=== PATIENT | male | born 1950 | race Caucasian/White ===

== ENCOUNTER → 2016-05-28 | Outpatient (CLI) | payer OTHER ==
[~2016-05-28] MED LIST: ACET-1256 PO; ASPEC81 PO; ASPI81TA28 PO; ATEN50TA8 PO; FURO-85 PO; NTRGSL/4 UT; NTRSLP4 SL; OMEP40CA41 PO; OXYC-609 PO; PANT40TA PO; POTA20TA13 PO; RANI300T2 PO; SIMV40TA2 PO; SUCR1TAB PO; SUCR1TAB29 PO; TAMS0.4C38 PO
[2016-05-28 12:53] LABS: ALT/SGPT 59 U/L (12-78); BLOOD UREA NITROGEN 30 mg/dl (7-18); BUN/CREATININE RATIO 22.7 (10-20); CALCIUM 8.9 mg/dl (8.5-10.1); CARBON DIOXIDE 29 mmol/L (21-32); CHLORIDE 102 mmol/L (98-107); GLUCOSE 211 mg/dl (70-99); POTASSIUM 4.6 mmol/L (3.5-5.1); SODIUM 138 mmol/L (136-145)
[2016-05-28 12:56] LABS: ALKALINE PHOSPHATASE 113 U/L (45-117); AST/SGOT 33 U/L (15-37)
== END | disposition home or self-care (01) ==
LOC: C.LABPVFM 08:36
PROVIDERS: ATTEND Nurse Practitioner
DX: I10 Essential (primary) hypertension (principal); R73.01 Impaired fasting glucose; R74.8 Abnormal levels of other serum enzymes

== ENCOUNTER → 2016-09-11 | Outpatient (CLI) | payer OTHER ==
[2016-09-11 12:31] LABS: CALCIUM 9.5 mg/dl (8.5-10.1)
[2016-09-11 12:36] LABS: BLOOD UREA NITROGEN 24 mg/dl (7-18); BUN/CREATININE RATIO 22.1 (10-20); CARBON DIOXIDE 28 mmol/L (21-32); CHLORIDE 102 mmol/L (98-107); CHOLESTEROL 192 mg/dl (0-200); GLUCOSE 121 mg/dl (70-99); POTASSIUM 4.6 mmol/L (3.5-5.1); SODIUM 137 mmol/L (136-145); TRIGLYCERIDES 122 mg/dl (0-150); VERY LOW DENSITY LIPOPROT CALC 24 mg/dl
[2016-09-11 12:40] LABS: CHOLESTEROL/HDL RATIO 4.7; HDL CHOLESTEROL 41 mg/dl; LDL CHOLESTEROL CALCULATED 127 mg/dl
[2016-09-11 12:59] LABS: ESTIMATED AVERAGE GLUCOSE 140 mg/dl; HA1C FLAG Normal (Normal)
== END | disposition home or self-care (01) ==
LOC: C.LABPVFM 09-10 08:50
PROVIDERS: ATTEND Nurse Practitioner
DX: I10 Essential (primary) hypertension (principal); E11.9 Type 2 diabetes mellitus without complications

== ENCOUNTER 2017-01-21 10:00 | Inpatient (IN) | payer OTHER ==
[~2017-01-21] VITALS: Ht 172.7 cm; Wt 105.8 kg
[~2017-01-21 10:00] MED LIST changes: -ACET-1256 PO; -ASPEC81 PO; -ASPI81TA28 PO; -ATEN50TA8 PO; -FURO-85 PO; -NTRGSL/4 UT; -NTRSLP4 SL; -OMEP40CA41 PO; -OXYC-609 PO; -POTA20TA13 PO; -SIMV40TA2 PO; -SUCR1TAB PO; -SUCR1TAB29 PO; -TAMS0.4C38 PO
[2017-01-21] MEDS ORDERED: ASPIRIN 81 MG CHEW PO STA (10:33)
[2017-01-21 10:45] LABS: HEMATOCRIT 41.4 % (42-52); MEAN CELL VOLUME 86.4 fL (80-100); MEAN CORPUSCULAR HEMOGLOBIN 30.1 pg (25-34); MEAN CORPUSCULAR HGB CONC 34.8 g/dl (32-36); MEAN PLATELET VOLUME 11.6 fL (7.4-10.4); PLATELET COUNT 242 K/uL (130-400); RED BLOOD COUNT 4.79 M/uL (4.7-6.1); WHITE BLOOD COUNT 5.98 K/uL (4.8-10.8)
[2017-01-21 10:49] LABS: PARTIAL THROMBOPLASTIN RATIO 1.2; PROTHROMBIN TIME (PATIENT) 10.6 SECONDS (9.0-12.0)
--- NOTE | 2017-01-21 10:55 | EMERGENCY ROOM VISIT NOTE ---
History Report prepared by Fran: Alek Rojas Under the Supervision of: Dr. Zeyad Jorge M.D. First contact with patient: 10:29 Chief Complaint: CHEST PAIN Stated Complaint: CHEST PAIN Nursing Triage Summary: patient states he has had intermittent chest pains for the past couple months. it happens more when I am up walking around. I dont have any pain at this time. when the pain comes it goes into my jaw and makes my teeth hurt. I also feel short of breath when I get the pain History of Present Illness The patient is a 66 year old male who presents to the Emergency Room with complaints of worsening intermittent chest pain for the past month. The patient additionally states that he is short of breath, and both symptoms are worsened with exertion, and it is improved with rest. The patient additionally states that his throat and teeth hurt as well. The patient states that he went into his doctor, and they told him to come into the ED for evaluation. The patient states that he has a history of acid reflux, though he denies any history of a heart attack, cancer, or blood clots. He states that he has high blood pressure. The patient denies any COPD, and he states that he does of smoke, though he did when he was much younger. He additionally denies any family history of heart attacks. He states that he has never had a stress test done. Source of History: patient Onset: a month ago Position: chest Timing: intermittent, worsening Modifying Factors (Worsening): exertion Modifying Factors (Relieving): rest Associated Symptoms: + SOB Note: Associated symptoms: throat pain and teeth pain. Review of Systems See HPI for pertinent positives and negatives. A total of ten systems were reviewed and were otherwise negative. Past Medical & Surgical Medical Problems: (1) Acute CHF (2) Hyperplasia Of Prostate, Unspec, 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 & Oth Luts (3) Hypertension Nos (4) Inf Arthrit Nos-Ankle (5) Personal History Of Urinary Calculi (6) Unstable angina Surgical Problems: (1) Cataract Nos Family History Depression Diabetes mellitus Hypertension Social History Smoking Status: Never Smoker Drug Use: none Marital Status: Housing Status: lives with family Occupation Status: retired Current/Historical Medications Scheduled Aspirin (Aspirin EC Low Dose), 81 MG PO QAM Atenolol (Tenormin), 50 MG PO QAM Omeprazole (Prilosec), 1 CAP PO BID Sucralfate (Carafate), 1 TAB PO ACHS Scheduled PRN Nitroglycerin (Nitrostat), 0.4 MG SL [id number] PRN for Chest Pain Allergies Coded Allergies: Morphine (Verified Adverse Reaction, Unknown, GI upset, 01/21/17) Physical Exam Vital Signs Date Time Temp Pulse Resp B/P (MAP) Pulse Ox O2 Delivery O2 Flow Rate FiO2 01/21/17 12:47 52 16 96 Room Air 01/21/17 12:30 97 Room Air 01/21/17 11:37 48 16 168/89 97 01/21/17 10:50 97 Room Air 01/21/17 10:50 97 Room Air 01/21/17 10:27 47 01/21/17 10:06 36.3 53 18 179/102 96 Physical Exam GENERAL: Awake, alert, well-appearing, in no distress HENT: Dry mucous membranes. Normocephalic, atraumatic. Oropharynx unremarkable. EYES: Normal conjunctiva. Sclera non-icteric. NECK: Supple. No nuchal rigidity. FROM. No JVD. RESPIRATORY: Clear to auscultation. CARDIAC: SB, normal rhythm. Extremities warm and well perfused. Pulses equal. ABDOMEN: Obese abdomen. Soft, non-distended. No tenderness to palpation. No rebound or guarding. No masses. RECTAL: Deferred. MUSCULOSKELETAL: Chest examination reveals no tenderness. The back is symmetrical on inspection without obvious abnormality. There is no CVA tenderness to palpation. No joint edema. LOWER EXTREMITIES: Calves are equal size bilaterally and non-tender. No edema. No discoloration. NEURO: Normal sensorium. No sensory or motor deficits noted. SKIN: No rash or jaundice noted. Medical Decision & Procedures ER Provider Diagnostic Interpretation: Radiology results as stated below per my review and radiologist interpretation: CHEST ONE VIEW PORTABLE HISTORY: Atypical CHEST PAIN COMPARISON: Chest 04/08/2016. FINDINGS: There are low lung volumes. The heart is mildly enlarged. Bibasilar linear densities. Mild central pulmonary vascular congestion without overt edema. No pneumothorax. No definite pleural effusions. Hiatal hernia. Bilateral hilar and mediastinal prominence may represent engorgement of the pulmonary vessels and crowding from the low lung volumes. IMPRESSION: 1. Low lung volumes with bibasilar densities. This may represent atelectasis. 2. Primarily with mild central pulmonary vascular congestion. 3. Hiatal hernia. 4. Bilateral hilar and mediastinal prominence may represent engorgement of the pulmonary vessels and crowding from the low lung volumes. However, follow-up PA and lateral views of the chest is recommended once the patient is stabilized to confirm resolution of this finding. Electronically signed by: Oswald Engel M.D. 01/21/2017 11:03 AM Dictated Date/Time: 01/21/2017 11:00 AM Laboratory Results Test 01/21/17 10:20 Estimated Average Glucose 128 mg/dl Hemoglobin A1c 6.1 % (4.5-5.6) Total Bilirubin 0.7 mg/dl (0.2-1) Aspartate Amino Transf (AST/SGOT) 24 U/L (15-37) Alanine Aminotransferase (ALT/SGPT) 54 U/L (12-78) Alkaline Phosphatase 94 U/L (45-117) Pro-B-Type Natriuretic Peptide 39 pg/ml (0-900) Total Protein 7.8 gm/dl (6.4-8.2) Albumin 4.0 gm/dl (3.4-5.0) Globulin 3.8 gm/dl (2.5-4.0) Albumin/Globulin Ratio 1.1 (0.9-2) Lipase 169 U/L (73-393) Laboratory results reviewed by me Medications Administered Medications (Trade) Dose Ordered Sig/Joseph Route Start Time Stop Time Status Last Admin Dose Admin Aspirin (Aspirin Chew) 324 mg NOW STAT PO 01/21/17 10:33 01/21/17 10:35 DC 01/21/17 10:49 324 MG Nitroglycerin (Nitroglycerin 2% Oint) 1 inch STK-MED ONCE .ROUTE 01/21/17 12:41 01/21/17 12:42 DC 01/21/17 12:49 1 INCH Acetaminophen (Tylenol Tab) 650 mg Q4H PRN PO 01/21/17 13:00 02/20/17 12:59 01/22/17 11:21 650 MG Furosemide (Lasix Inj) 40 mg NOW STAT IV 01/21/17 13:02 01/21/17 13:22 DC 01/21/17 13:35 40 MG ECG Indication: chest pain Rate (beats per minute): 48 Rhythm: sinus bradycardia Findings: no acute ischemic change, other (Normal axis) Comparison ECG Date: 04/08/16 Change: no significant change ED Course 1029: The patient was evaluated in room A2. A complete history and physical exam was performed. 1033: Aspirin 324mg PO 1200: I reevaluated the patient, and he was resting. 1224: Discussed the patient's case with Dr. Beltran. The patient will be evaluated for further treatment and disposition. Medical Decision I reviewed the patient's past medical history, medications, and the nursing notes as described above. The patient's presentation and history were concerning for ACS, CHF, pneumonia, bronchitis, reflux gastritis, dissection, and aneurysm. Patient is a 66-year-old gentleman with a past medical history of hypertension presents emergency Department with intermittent chest pain with exertion as well as at rest per history of present illness. Exam the patient is no acute distress, afebrile with stable vital signs. Denies chest pain on arrival. EKG unremarkable. Troponin negative. Chest x-ray unremarkable. Bedside echo negative for pericardial effusion, slightly enlarged LV and RV, with likely slightly decreased function. Considering this patient has a heart sort of 5, moderate risk, will need further r/o. Case discussed with medicine team will admit for further management and likely provocative testing. Medication Reconcilliation Current Medication List: was personally reviewed by me Blood Pressure Screening Patient's blood pressure: Elevated blood pressure Managed by the hospitalist Consults Time Called: 1202 Consulting Physician: Dr. Beltran Returned Call: 1224 Discussed the patient's case with Dr. Beltran. The patient will be evaluated for further treatment and disposition. Impression Primary Impression: Substernal chest pain Scribe Attestation The scribe's documentation has been prepared under my direction and personally reviewed by me in its entirety. I confirm that the note above accurately reflects all work, treatment, procedures, and medical decision making performed by me. Departure Information Dispostion Being Evaluated By Hospitalist Prescriptions Sucralfate (CARAFATE) 1 Gm Tab 1 TAB PO ACHS for 10 Days, #40 TAB 0 Refills Prov: Fernie Stover MD 01/23/17 Aspirin (Aspirin EC Low Dose) 81 Mg Ectab 81 MG PO QAM, #90 TABS 3 Refills Prov: Fernie Stover MD 01/23/17 Nitroglycerin (Nitrostat) 0.4 Mg/1 Tab Subl 0.4 MG SL [id number] Y for Chest Pain, #1 BTL 0 Refills max 3 tabs in 15 minutes Prov: Fernie Stover MD 01/23/17 Omeprazole (PRILOSEC) 40 Mg Cap 1 CAP PO BID for 30 Days, #60 CAP 1 Refill Prov: Fernie Stover MD 01/23/17 Referrals Lori Ponce C.R.N.P (PCP) Patient Instructions [facility]
[2017-01-21 11:02] LABS: ALT/SGPT 54 U/L (12-78); AST/SGOT 24 U/L (15-37); BLOOD UREA NITROGEN 22 mg/dl (7-18); BUN/CREATININE RATIO 19.8 (10-20); CALCIUM 9.2 mg/dl (8.5-10.1); CARBON DIOXIDE 26 mmol/L (21-32); CHLORIDE 104 mmol/L (98-107); GLUCOSE 163 mg/dl (70-99); SODIUM 135 mmol/L (136-145)
--- NOTE | 2017-01-21 11:05 | DIAGNOSTIC IMAGING REPORT ---
CHEST ONE VIEW PORTABLE HISTORY: Atypical CHEST PAIN COMPARISON: Chest 04/08/2016. FINDINGS: There are low lung volumes. The heart is mildly enlarged. Bibasilar linear densities. Mild central pulmonary vascular congestion without overt edema. No pneumothorax. No definite pleural effusions. Hiatal hernia. Bilateral hilar and mediastinal prominence may represent engorgement of the pulmonary vessels and crowding from the low lung volumes. IMPRESSION: 1. Low lung volumes with bibasilar densities. This may represent atelectasis. 2. Primarily with mild central pulmonary vascular congestion. 3. Hiatal hernia. 4. Bilateral hilar and mediastinal prominence may represent engorgement of the pulmonary vessels and crowding from the low lung volumes. However, follow-up PA and lateral views of the chest is recommended once the patient is stabilized to confirm resolution of this finding. Electronically signed by: Oswald Engel M.D. 01/21/2017 11:03 AM Dictated Date/Time: 01/21/2017 11:00 AM
[2017-01-21 11:07] LABS: ALB/GLOB RATIO 1.1 (0.9-2); ALKALINE PHOSPHATASE 94 U/L (45-117); CKMB/CK RATIO 0.9 (0-3.0)
[2017-01-21 12:30] VITALS: O2SAT 97; Ht 172.7 cm; Wt 105.8 kg
[2017-01-21] MEDS ORDERED: NITROGLYCERIN OINT 2% 1GM PACKET ONE ×2 (12:41→12:48)
[2017-01-21] MEDS ORDERED: ACETAMINOPHEN 325 MG TAB PO PRN (13:00)
[2017-01-21] MEDS ORDERED: NITROGLYCERIN 0.4 MG SL PER TAB CHARGE SL PRN (13:00)
[2017-01-21] MEDS ORDERED: ZOLPIDEM TARTRATE 5 MG TAB PO PRN (13:00)
[2017-01-21] MEDS ORDERED: ONDANSETRON INJ 2 MG/ML 2 ML VIAL IV PRN (13:00)
[2017-01-21] MEDS ORDERED: FUROSEMIDE 40 MG/4 ML VIAL IV STA (13:02)
--- NOTE | 2017-01-21 13:33 | History and Physical ---
History & Physical Date & Time of Service: Jan 21, 2017 at 13:24 Chief Complaint: Chest Pain Primary Care Physician: Lori Ponce C.R.N.P History of Present Illness Source: patient, hospital records The patient is a 66-year-old male who presents to the emergency department with worsening intermittent chest tightness with discomfort into his neck and jaw with teeth pain worsening over the past month. Last week when he was at the [facility], he became so short of breath that he sat down and almost called EMS to bring him to the emergency department. He presents to the emergency department today because of worsening symptoms over the past few days. He is feeling okay while at rest, but developed symptoms very quickly with any type of exertion. He denies any recent increase in salt intake, reporting that he does not add salt to foods, but does not look at the amount of salt that is in foods naturally. He reports an 8 pound weight loss over the past month, because he was advised to lose weight due to his hiatal hernia, but reports that this discomfort is not reflux related and that his reflux is under control. 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: Chronic (2) Hypertension Nos Status: Chronic (3) Inf Arthrit Nos-Ankle Status: Resolved (4) Personal History Of Urinary Calculi Status: Resolved Surgical Problems: (1) Cataract Nos Status: Resolved Family History Depression Diabetes mellitus Hypertension Social History Smoking Status: Former Smoker Smokeless Tobacco Use: No Alcohol Use: none Drug Use: none Marital Status: Housing status: lives with family Occupational Status: retired Immunizations History of Influenza Vaccine: Unknown History of Tetanus Vaccine?: Unknown History of Pneumococcal: Unknown History of Hepatitis B Vaccine: Unknown Multi-Drug Resistant Organisms History of MDRO: No Allergies Coded Allergies: Morphine (Verified Adverse Reaction, Unknown, GI upset, 01/21/17) Home Medications Scheduled Atenolol (Tenormin), 50 MG PO QAM Pantoprazole (Protonix), 40 MG PO QAM Ranitidine Hcl (Zantac), 300 MG PO HS Review of Systems The patient denies palpitations, cough, lower extremity swelling, vision change , hearing change, fevers, chills, sweats, fatigue, nausea, vomiting, diarrhea or constipation, abdominal pain, pelvic pain, blood in urine or stool, dysuria, urinary frequency or urgency, lightheadedness, dizziness, headache, memory loss , rash, abnormal bruising or bleeding, imbalance, focal or generalized weakness , numbness or tingling in arms or legs, generalized arthralgias or myalgias, back pain, night sweats, or allergy symptoms. The review of systems is otherwise negative other than for that already noted above, and at least 10 systems have been reviewed. Physical Exam Vital Signs Date Time Temp Pulse Resp B/P (MAP) Pulse Ox O2 Delivery O2 Flow Rate FiO2 01/21/17 13:20 47 01/21/17 12:47 52 16 96 Room Air 01/21/17 12:30 97 Room Air 01/21/17 11:37 48 16 168/89 97 01/21/17 10:50 97 Room Air 01/21/17 10:50 97 Room Air 01/21/17 10:27 47 01/21/17 10:06 36.3 53 18 179/102 96 The patient is awake, well-developed and adequately nourished, alert and oriented 3, normocephalic and atraumatic, lying in bed and in no acute distress. HEENT--PERRL, EOMI, mucous membranes and oropharynx normal. Neck--supple, no JVD or bruits, thyroid normal, trachea midline, no adenopathy. Heart--normal S1 and S2, no extra beats, no murmurs, rubs or gallops. Lungs--crackles at the bases bilaterally, no respiratory distress, no accessory muscle use. Abdomen--normal bowel sounds and soft, nontender and nondistended, no hernias or masses, no organomegaly and obese. Extremities--no cyanosis, clubbing or edema. There are good distal pulses b/l. Dermatologic--normal skin turgor, normal color, warm and dry, no abnormal lymph nodes, no rash. Neurologic--cranial nerves II through XII grossly intact, motor and sensory examination normal. Rheumatologic--normal range of motion, nontender, muscles and joints. Psychiatric--normal affect. Diagnostics Laboratory Results Results Past 24 Hours Test 01/21/17 10:20 Range/Units White Blood Count 5.98 4.8-10.8 K/uL Red Blood Count 4.79 4.7-6.1 M/uL Hemoglobin 14.4 14.0-18.0 g/dL Hematocrit 41.4 42-52 % Mean Corpuscular Volume 86.4 80-100 fL Mean Corpuscular Hemoglobin 30.1 25-34 pg Mean Corpuscular Hemoglobin Concent 34.8 32-36 g/dl RDW Standard Deviation 44.7 36.4-46.3 fL RDW Coefficient of Variation 14.2 11.5-14.5 % Platelet Count 242 130-400 K/uL Mean Platelet Volume 11.6 7.4-10.4 fL Prothrombin Time 10.6 9.0-12.0 SECONDS Prothromb Time International Ratio 1.0 0.9-1.1 Activated Partial Thromboplast Time 29.9 21.0-31.0 SECONDS Partial Thromboplastin Ratio 1.2 Sodium Level 135 136-145 mmol/L Potassium Level 4.0 3.5-5.1 mmol/L Chloride Level 104 98-107 mmol/L Carbon Dioxide Level 26 21-32 mmol/L Anion Gap 5.0 3-11 mmol/L Blood Urea Nitrogen 22 7-18 mg/dl Creatinine 1.10 0.60-1.40 mg/dl Est Creatinine Clear Calc Drug Dose 77.2 ml/min Estimated GFR () 80.1 Estimated GFR (Non- 69.1 BUN/Creatinine Ratio 19.8 10-20 Random Glucose 163 70-99 mg/dl Calcium Level 9.2 8.5-10.1 mg/dl Total Bilirubin 0.7 0.2-1 mg/dl Aspartate Amino Transf (AST/SGOT) 24 15-37 U/L Alanine Aminotransferase (ALT/SGPT) 54 12-78 U/L Alkaline Phosphatase 94 45-117 U/L Total Creatine Kinase 76 39-308 U/L Creatine Kinase MB 0.7 0.5-3.6 ng/ml Creatine Kinase MB Ratio 0.9 0-3.0 Troponin I < 0.015 0-0.045 ng/ml Pro-B-Type Natriuretic Peptide 39 0-900 pg/ml Total Protein 7.8 6.4-8.2 gm/dl Albumin 4.0 3.4-5.0 gm/dl Globulin 3.8 2.5-4.0 gm/dl Albumin/Globulin Ratio 1.1 0.9-2 Lipase 169 73-393 U/L Diagnostic Radiology Patient Name: LYNN MURILLO Unit Number: [id number] Dictated: 01/21/171099 Transcribed: 01/21/171099 PAJ Printed Date/Time: [~ rep prt dt]/[~ rep prt tm] [~ rep ct labl] - [~ rep ct ivnm] [facility] Radiology Department [place] [id number] Dictated: 01/21/171099 Transcribed: 01/21/17 1100 PAJ Printed Date/Time: [~ rep prt dt]/[~ rep prt tm] [~ rep ct labl] - [~ rep ct ivnm] [~ rep ct add3]] CHEST ONE VIEW PORTABLE HISTORY: Atypical CHEST PAIN COMPARISON: Chest 04/08/2016. FINDINGS: There are low lung volumes. The heart is mildly enlarged. Bibasilar linear densities. Mild central pulmonary vascular congestion without overt edema. No pneumothorax. No definite pleural effusions. Hiatal hernia. Bilateral hilar and mediastinal prominence may represent engorgement of the pulmonary vessels and crowding from the low lung volumes. IMPRESSION: 1. Low lung volumes with bibasilar densities. This may represent atelectasis. 2. Primarily with mild central pulmonary vascular congestion. 3. Hiatal hernia. 4. Bilateral hilar and mediastinal prominence may represent engorgement of the pulmonary vessels and crowding from the low lung volumes. However, follow-up PA and lateral views of the chest is recommended once the patient is stabilized to confirm resolution of this finding. Electronically signed by: Oswald Engel M.D. 01/21/2017 11:03 AM Dictated Date/Time: 01/21/2017 11:00 AM The status of this report is Signed. Draft = Not yet reviewed or approved by Radiologist. Signed = Reviewed and approved by Radiologist. <AttendingPhy></AttendingPhy> <FamilyPhy>Lori Ponce C.R.N.P</FamilyPhy> < PrimaryPhy>Lori Ponce C.R.N.P</PrimaryPhy> <UnitNumber>[id number]</ UnitNumber> <VisitNumber>[id number]</VisitNumber> <PatientName>LYNN MURILLO< /PatientName> <DateOfBirth>1950</DateOfBirth> <Location>[facility]</Location> < ServiceDate>01/21/17</ServiceDate> <MNE>ESINDI</MNE> <OrderingPhy>ED, PROTOCOL</ OrderingPhy> <OrderingPhyMNE>f rep ord dr rodrigues</OrderingPhyMNE> <DictatingPhyMNE> f rep dict dr rodrigues</DictatingPhyMNE> <CCListMNE>f rep ct ravi</CCListMNE> < AdmittingPhyMNE>f pt admit dr rodrigues</AdmittingPhyMNE> <AttendingPhyMNE>f pt attend dr rodrigues</AttendingPhyMNE> <ConsultingPhyMNE>f pt consult dr rodrigues</ConsultingPhyMNE> <FamilyPhyMNE>f pt fam dr rodriguse</FamilyPhyMNE> <OtherPhyMNE>f pt other dr rodrigues</OtherPhyMNE> < PrimaryPhyMNE>f pt prim care dr rodrigues</PrimaryPhyMNE> <ReferringPhyMNE>f pt referring dr rodrigues</ReferringPhyMNE> EKG EKG shows sinus bradycardia at 48 bpm, there are no acute ST-T changes. Impression Assessment and Plan Acute onset of CHF/unstable angina/hypertension/bradycardia--The patient will be admitted to telemetry for serial cardiac enzymes, cardiac rhythm monitoring and a 2-D echocardiogram with Dopplers. Hold atenolol 50 mg by mouth every morning due to significant bradycardia. He has already taken his dose this morning. Add aspirin 81 mg by mouth every morning. Add Nitropaste 1 inch to the anterior chest wall every 6 hours. Give Lasix 40 mg IV [address] Hood. GERD--continue pantoprazole 40 mg by mouth every morning. Patient reports that he no longer needs to use ranitidine 300 mg at bedtime, as it was only when necessary to begin with, and he feels his reflux is under control this time. Hyperglycemia--blood sugar was 163, check a hemoglobin A1c. We will hold on Accu-Cheks for now. Level of Care Telemetry Advanced Directives Existing Advance Directive: No Existing Living Will: No Existing Power of Firearms Sales Associate: No Resuscitation Status FULL RESUSCITATION VTE Prophylaxis VTE Risk Assessment Done? Y/N: Yes Risk Level: Moderate Given or contraindicated: SCD's Social Service Consult None Apply
[2017-01-21 14:11] LABS: ESTIMATED AVERAGE GLUCOSE 128 mg/dl; HA1C FLAG Normal (Normal)
[2017-01-21 14:38] VITALS: BP 152/91; PULSE 47; TEMP 36.3; O2SAT 97
[2017-01-21 15:45] VITALS: BP 121/79; PULSE 50; TEMP 36.3; O2SAT 96
--- NOTE | 2017-01-21 17:20 | ECHOCARDIOGRAM REPORT ---
*NOTICE TO RECEIVING LIBERTARIAN AGENCY This information is strictly Confidential and protected under [place] law. [place] law prohibits you from making any further disclosure of this information unless further disclosure is expressly permitted by the written consent of the person to whom it pertains or is authorized by law. A general authorization for the release of medical or other information is not sufficient for this purpose. Hospital accepts no responsibility if the information is made available to any other person, INCLUDING THE PATIENT. Interpretation Summary * Name: LYNN MURILLO Study Date: 01/21/2017 01:53 PM BP: 168/89 mmHg * Patient Location: [facility]\S\N278\S\2 HR: 48 * : 1950 (M/d/yyyy) Gender: Male Height: 67 in * Age: 66 yrs Ethnicity: [place] Weight: 235 lb * Ordering Physician: Zi Beltran * Referring Physician: UNKNOWN * * BSA: 2.2 m2 * -- Conclusions -- * There is borderline asymmetric left ventricular hypertrophy. * Left ventricular systolic function is normal. * Grade I diastolic dysfunction, (abnormal relaxation pattern). * There are regional wall motion abnormalities as specified. * Moderate aortic regurgitation. Procedure Details * Left Ventricle The left ventricle is grossly normal size. There is borderline asymmetric left ventricular hypertrophy. Ejection Fraction = 55-60%. Left ventricular systolic function is normal. Grade I diastolic dysfunction, (abnormal relaxation pattern). There are regional wall motion abnormalities as specified. There appears to be mild to moderate hypokinesis of the apical anterior wall * Right Ventricle The right ventricle is normal in size and function. * Atria The left atrial size is normal. Right atrial size is normal. * Mitral Valve The mitral valve anatomy is normal. Significant mitral regurgitation is absent. * Tricuspid Valve The tricuspid valve is not well visualized. Significant tricuspid regurgitation is absent. * Aortic Valve The aortic valve is trileaflet. No hemodynamically significant valvular aortic stenosis. Moderate aortic regurgitation. * Great Vessels The aortic root is normal size. * Pericardium/Pleural There is no pericardial effusion. * * MMode 2D Measurements and Calculations * IVSd 1.2 cm * * LVIDd 5.2 cm * LVIDs 3.7 cm * LVPWd 0.97 cm * * IVS/LVPW 1.2 * FS 29.1 % * EDV(Teich) 129.6 ml * ESV(Teich) 57.6 ml * EF(Teich) 55.5 % * * EDV(cubed) 140.8 ml * ESV(cubed) 50.1 ml * EF(cubed) 64.4 % * * LV mass(C)d 212.4 grams * LV mass(C)dI 98.1 grams/m\S\2 * * SV(Teich) 72.0 ml * SI(Teich) 33.2 ml/m\S\2 * SV(cubed) 90.6 ml * SI(cubed) 41.8 ml/m\S\2 * * Ao root diam 2.9 cm * Ao root area 6.6 cm\S\2 * * LVOT diam 2.0 cm * LVOT area 3.2 cm\S\2 * * EDV(MOD-sp4) 118.6 ml * ESV(MOD-sp4) 44.1 ml * EF(MOD-sp4) 62.8 % * * EDV(MOD-sp2) 71.1 ml * ESV(MOD-sp2) 39.0 ml * EF(MOD-sp2) 45.1 % * * SV(MOD-sp4) 74.5 ml * SI(MOD-sp4) 34.4 ml/m\S\2 * * SV(MOD-sp2) 32.0 ml * SI(MOD-sp2) 14.8 ml/m\S\2 * * * Doppler Measurements and Calculations * MV E max ulises 44.8 cm/sec * MV A max ulises 59.9 cm/sec * * MV E/A 0.75 * * MV dec time 0.33 sec * * Ao V2 max 141.2 cm/sec * Ao max PG 8.0 mmHg * Ao max PG (full) 5.6 mmHg * LUCIANO(V,A) 1.7 cm\S\2 * LUCIANO(V,D) 1.7 cm\S\2 * * AI max ulises 517.0 cm/sec * AI max PG 106.9 mmHg * AI dec slope 98.6 cm/sec\S\2 * AI P1/2t 1535.7 msec * * LV V1 max PG 2.4 mmHg * * LV V1 max 77.1 cm/sec * * *
[2017-01-21] MEDS: NITROGLYCERIN OINT 2% 1GM PACKET EXT SCH ×2 (17:40→23:36)
--- NOTE | 2017-01-21 19:16 | Cardiology Consultation ---
Cardiology Consultation Date of Consultation: Jan 21, 2017. Requesting Physician: Isa Reason for Consultation: Chest Pain History of Present Illness The patient is a 66-year-old gentleman without a known history of cardiac disease who has been experiencing episodes of chest pain with exertion. He states approximately 1 month ago began experience episodes of epigastric discomfort when he was active. This was described as an actual pain in the precordium which occasionally radiated involved the neck and jaw. He often described this as a sense of squeezing in the neck and difficulty speaking during these episodes. Generally he would reduce his activity or slow down and the symptoms resolve over several minutes. He feels that his voice is more worse recently. He denies significant breathing difficulty during these episodes. He has had some episodes without exertion. He did report an episode of sustained discomfort lasting 30-40 minutes 1 night after drinking a milk shake. He has also been concerned about worsening abdominal bloating. He feels that his abdomen is more bloated now than it was at the time of his admission earlier today. He has had difficulty with reflux in the past but since institution of pantoprazole he has not had those symptoms. He denies any bowel complaints. He has not had any episodes of dizziness. He has not report palpitations. At the time of his admission today he was required to walk from the front entrance to the emergency room and had the onset of chest discomfort. This resolved once he reached his destination. He has not had any nausea or vomiting. No significant belching. 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 This often produces discomfort has been present for some time. He has some trouble with ambulation due to with prior fracture of his left ankle. Generally speaking he gets around with a scooter. All Other Systems: Reviewed and Negative Allergies Coded Allergies: Morphine (Verified Adverse Reaction, Unknown, GI upset, 01/21/17) Medications Current Inpatient Medications Medications (Trade) Dose Ordered Sig/Joseph Route Start Time Stop Time Status Last Admin Dose Admin Nitroglycerin (Nitroglycerin 2% Oint) 1 inch Q6H EXT 01/21/17 18:00 02/20/17 12:44 01/21/17 17:40 1 INCH Pantoprazole Sodium (Protonix Tab) 40 mg QAM PO 01/22/17 09:00 02/21/17 08:59 Acetaminophen (Tylenol Tab) 650 mg Q4H PRN PO 01/21/17 13:00 02/20/17 12:59 Zolpidem Tartrate (Ambien Tab) 5 mg HSZ PRN PO 01/21/17 13:00 02/20/17 12:59 Nitroglycerin (Nitrostat Tab) 0.4 mg UD PRN SL 01/21/17 13:00 02/20/17 12:59 Aspirin (Ecotrin Tab) 81 mg QAM PO 01/22/17 09:00 02/21/17 08:59 Ondansetron HCl (Zofran Inj) 4 mg Q6H PRN IV 01/21/17 13:00 02/20/17 12:59 Physical Exam Vital Signs Past 12 Hours Date Time Temp Pulse Resp B/P (MAP) Pulse Ox O2 Delivery O2 Flow Rate FiO2 01/21/17 16:00 Room Air 01/21/17 15:45 36.3 50 20 121/79 (93) 96 Room Air 01/21/17 14:38 36.3 47 16 152/91 (111) 97 Room Air 01/21/17 13:37 52 16 164/97 01/21/17 13:20 47 01/21/17 12:47 52 16 96 Room Air 01/21/17 12:30 97 Room Air 01/21/17 11:37 48 16 168/89 97 01/21/17 10:50 97 Room Air 01/21/17 10:50 97 Room Air 01/21/17 10:27 47 01/21/17 10:06 36.3 53 18 179/102 96 The patient is alert and oriented. Mood and affect appeared normal. He answered all questions appropriately. HEENT: Pupils are equal and reactive to light and accommodation. Extraocular movements are intact. The sclerae are anicteric. Neuro: Cranial nerves intact Neck: Patient's neck is supple. He has palpable carotid pulses bilaterally without bruits on auscultation. There is no evidence of jugular venous distention. The thyroid is not enlarged. Lungs: Clear to auscultation bilaterally. He has good air movement without use of accessory muscles. No rales wheezes or rhonchi. Cardiac: Heart demonstrates a regular rate and rhythm. Normal S1 and S2. No murmurs on examination. Abdomen: Mildly distended but nontender Pulses: The patient has palpable radial pulses bilaterally that are equal in intensity Extremities: There was no evidence of hypoperfusion. There is no cyanosis or clubbing. There is no edema. Skin: I did not appreciate any rashes on examination today. Data Laboratory Results: Last 24 Hours Test 01/21/17 10:20 White Blood Count 5.98 K/uL Red Blood Count 4.79 M/uL Hemoglobin 14.4 g/dL Hematocrit 41.4 % Mean Corpuscular Volume 86.4 fL Mean Corpuscular Hemoglobin 30.1 pg Mean Corpuscular Hemoglobin Concent 34.8 g/dl RDW Standard Deviation 44.7 fL RDW Coefficient of Variation 14.2 % Platelet Count 242 K/uL Mean Platelet Volume 11.6 fL Prothrombin Time 10.6 SECONDS Prothromb Time International Ratio 1.0 Activated Partial Thromboplast Time 29.9 SECONDS Partial Thromboplastin Ratio 1.2 Sodium Level 135 mmol/L Potassium Level 4.0 mmol/L Chloride Level 104 mmol/L Carbon Dioxide Level 26 mmol/L Anion Gap 5.0 mmol/L Blood Urea Nitrogen 22 mg/dl Creatinine 1.10 mg/dl Est Creatinine Clear Calc Drug Dose 77.2 ml/min Estimated GFR () 80.1 Estimated GFR (Non- 69.1 BUN/Creatinine Ratio 19.8 Random Glucose 163 mg/dl Estimated Average Glucose 128 mg/dl Hemoglobin A1c 6.1 % Calcium Level 9.2 mg/dl Magnesium Level 2.4 mg/dl Total Bilirubin 0.7 mg/dl Aspartate Amino Transf (AST/SGOT) 24 U/L Alanine Aminotransferase (ALT/SGPT) 54 U/L Alkaline Phosphatase 94 U/L Total Creatine Kinase 76 U/L Creatine Kinase MB 0.7 ng/ml Creatine Kinase MB Ratio 0.9 Troponin I < 0.015 ng/ml Pro-B-Type Natriuretic Peptide 39 pg/ml Total Protein 7.8 gm/dl Albumin 4.0 gm/dl Globulin 3.8 gm/dl Albumin/Globulin Ratio 1.1 Lipase 169 U/L Imaging: Chest x-ray did demonstrate a hiatal hernia. There was mediastinal 1 Gorge minimal lung volumes. EKG: Sinus bradycardia without ST or T-wave changes Telemetry reviewed: Predominantly sinus bradycardia Echocardiogram obtained today revealed preserved LV systolic function without significant valvular abnormalities or wall motion abnormalities Assessment & Plan 1. Chest pain: The patient's symptoms is certainly concerning for angina. While they are not exclusively exertional in nature he do appear to be reliably reproduced with activity. He also resolve with rest. He has multiple risk factors for coronary disease. However, despite prolonged episodes in the past his cardiac biomarkers are normal today. His EKG is also normal. He has preserved LV systolic function. I think the competing diagnosis is a hiatal hernia and reflux disease. Unfortunately, I think his symptoms are concerning enough that he requires coronary angiography in order to exclude significant stenoses. Stress testing could be performed but my concern is the sensitivity of the test. I think his pretest probability is quite high and a negative tests may be more likely to be a false negative than a true negative. I recommended coronary angiography but the patient had some hesitation and is only agree to stress testing. He cannot ambulate well and likely will need a pharmacologic test. Another possibility for his symptoms is chronotropic incompetence. Only does not describe overt dyspnea on exertion which is more common with this malady he has a resting bradycardia and may not be able to affect an increase in his heart rate producing such symptoms. Based on his preference we will proceed with stress testing tomorrow morning. Additional recommendations following results of that test. He has been placed on aspirin and will continue his outpatient beta blockade.
[2017-01-21 23:34] VITALS: BP 95/56; PULSE 51; TEMP 36.6; O2SAT 95
[2017-01-22] VITALS (12 sets, daily range): BP systolic 95–155; BP diastolic 56–101; PULSE 43–65; TEMP 36.5–36.7; O2SAT 95–97
[2017-01-22 04:56] LABS: BASO % 0.6 %; BASO ABS # 0.05 K/uL (0-0.2); COMPLETE YES; EOS % 3.2 %; HEMATOCRIT 41.8 % (42-52); IG% 0.4 %; LYMPH % 23.9 %; LYMPH ABS # 1.87 K/uL (1.2-3.4); MEAN CELL VOLUME 87.4 fL (80-100); MEAN CORPUSCULAR HEMOGLOBIN 29.5 pg (25-34); MEAN CORPUSCULAR HGB CONC 33.7 g/dl (32-36); MEAN PLATELET VOLUME 11.6 fL (7.4-10.4); MONO % 11.5 %; NEUT % 60.4 %; PLATELET COUNT 238 K/uL (130-400); RED BLOOD COUNT 4.78 M/uL (4.7-6.1); WHITE BLOOD COUNT 7.82 K/uL (4.8-10.8)
[2017-01-22 05:13] LABS: BLOOD UREA NITROGEN 32 mg/dl (7-18); BUN/CREATININE RATIO 21.2 (10-20); CALCIUM 9.3 mg/dl (8.5-10.1); CARBON DIOXIDE 30 mmol/L (21-32); CHLORIDE 103 mmol/L (98-107); GLUCOSE 124 mg/dl (70-99); MAGNESIUM 2.5 mg/dl (1.8-2.4); POTASSIUM 4.6 mmol/L (3.5-5.1); SODIUM 138 mmol/L (136-145)
[2017-01-22 05:23] LABS: PARTIAL THROMBOPLASTIN RATIO 1.1; PROTHROMBIN TIME (PATIENT) 10.9 SECONDS (9.0-12.0)
[2017-01-22] MEDS: NITROGLYCERIN OINT 2% 1GM PACKET EXT SCH ×2 (05:55→11:22)
[2017-01-22] MEDS: SODIUM CHLORIDE 0.9% 1000ML 1,000 ML IV SCH ×2 (08:48→17:41)
[2017-01-22] MEDS ORDERED: PANTOprazole SOD 40 MG TAB PO SCH (09:00)
[2017-01-22] MEDS ORDERED: DOBUTamine 500MG / 250ML D5W ONE (09:40)
[2017-01-22] MEDS ORDERED: METOPROLOL TARTRATE 1 MG/ML VIAL ONE (09:41)
[2017-01-22] MEDS ORDERED: ATROPINE SULFATE 0.1 MG/ML 5ML SYR ONE (09:41)
--- NOTE | 2017-01-22 10:50 | Clinical Documentation Query ---
CLINICAL DOCUMENTATION QUERY 66-year-old male who presents to the emergency department with worsening intermittent chest tightness with discomfort into his neck and jaw with teeth pain worsening over the past month. In your clinical opinion is this patient being managed for: ( x ) CLINT in setting of IV diuretic therapy, treated with daily PRP ( ) Not Agree ( ) Other explanation of clinical findings (Please Explain) ( ) Unable to determine (Please Define) ( ) Need to Discuss The medical record reflects the following clinical findings, treatment, and risk factors. Clinical Indicators: Initial BUN/Creat/GFR - 22/1.10/69.1 trending to BUN/Creat/GFR - 32/ 1.50/47.5 after IV diuretic Treatment: I&O, daily PRPs, IV diuretic was not continued Risk Factors: IV diuretic Please clarify and document your clinical opinion in the progress notes and discharge summary. Terms such as "probable", "suspected", "likely", "questionable", "possible", or "still to be ruled out" are acceptable. IF IN AGREEMENT, YOU MUST DOCUMENT ABOVE DIAGNOSTIC STATEMENT IN DAILY PROGRESS NOTES AND DISCHARGE SUMMARY. This document is not part of the patient's record. Thank You, Lakeisha Raines RN [phone]
[2017-01-22] MEDS: ASPIRIN 81 MG ECTAB PO SCH (11:24)
--- NOTE | 2017-01-22 13:02 | DOBUTAMINE ECHO ---
*NOTICE TO RECEIVING DEMOCRAT AGENCY This information is strictly Confidential and protected under [place] law. [place] law prohibits you from making any further disclosure of this information unless further disclosure is expressly permitted by the written consent of the person to whom it pertains or is authorized by law. A general authorization for the release of medical or other information is not sufficient for this purpose. Hospital accepts no responsibility if the information is made available to any other person, INCLUDING THE PATIENT. Interpretation Summary * Name: LYNN MURILLO Study Date: 01/22/2017 09:08 AM BP: 146/82 mmHg * Patient Location: [facility]\S\N278\S\2 HR: 51 * : 1950 (M/d/yyyy) Gender: Male Height: 68 in * Age: 66 yrs Ethnicity: [place] Weight: 235 lb * Ordering Physician: Corby Hood * Referring Physician: UNKNOWN * Performed By: Shima Douglas RCS * * Reason For Study: CHEST PAIN * BSA: 2.2 m2 * -- Conclusions -- * Left ventricular systolic function is normal. * No evidence of inducible ischemia at the heart rate achieved Procedure Details * DOBUTAMINE ECHO, CPT#98070 Left Ventricular Findings with Stress * No evidence of inducible ischemia at the heart rate achieved Left Ventricle * Left ventricular systolic function is normal. * The left ventricular wall motion is normal at rest. Stress Parameters * Normal baseline electrocardiogram. * Stress ECG: No ST changes. No arrhythmias. * Rest heart rate was '51' BPM. * Rest blood pressure was '146/82' * Maximum heart rate achieved was 108 bpm. * Maximum heart rate was 70 % of maximum age-predicted heart rate. * Maximum blood pressure was '158/87' * Maximum Dobutamine infusion rate was '40' mcg/kg/min. * A total of .5 mg of intravenous Atropine was used to supplement Dobutamine for heart rate response. * Dobutamine infusion was terminated due to symptoms * A total of 2.5 mg of IV Metoprolol was administered to reverse Dobutamine-induced tachycardia. * Normal blood pressure response to exercise. * The patient exhibited chest tightness during the drug infusion Left Ventricular Findings with Stress * Patient develops his index symptoms during dobutamine infusion Baseline EKG was normal There were no significant EKG changes with dobutamine infusion or development of symptoms Baseline echocardiogram revealed normal LV function with normal wall motion With dobutamine infusion and development of symptoms there was no inducible wall motion abnormalities. There is normal augmentation of all segments. There was evidence of cavity obliteration which may limit sensitivity.
[2017-01-22] MEDS: SUCRALFATE 1 GM/10 ML UDC PO SCH ×2 (16:08→20:32)
[2017-01-22 16:25] LABS: CREATININE 1.3 mg/dl (0.60-1.40)
[2017-01-22 16:45] LABS: CKMB/CK RATIO 1.3 (0-3.0)
--- NOTE | 2017-01-22 19:11 | Cardiology Follow-Up ---
Subjective Date of Service: Jan 22, 2017. Pt evaluation today including: conversation w/ patient, physical exam, chart review, lab review, review of studies, conversation w/ attending History of Present Illness The patient is a 66-year-old gentleman without a known history of cardiac disease who has been experiencing episodes of chest pain with exertion. He states approximately 1 month ago began experience episodes of epigastric discomfort when he was active. This was described as an actual pain in the precordium which occasionally radiated involved the neck and jaw. He often described this as a sense of squeezing in the neck and difficulty speaking during these episodes. Generally he would reduce his activity or slow down and the symptoms resolve over several minutes. He feels that his voice is more worse recently. He denies significant breathing difficulty during these episodes. He has had some episodes without exertion. He did report an episode of sustained discomfort lasting 30-40 minutes 1 night after drinking a milk shake. He has also been concerned about worsening abdominal bloating. He feels that his abdomen is more bloated now than it was at the time of his admission earlier today. He has had difficulty with reflux in the past but since institution of pantoprazole he has not had those symptoms. He denies any bowel complaints. He has not had any episodes of dizziness. He has not report palpitations. At the time of his admission today he was required to walk from the front entrance to the emergency room and had the onset of chest discomfort. This resolved once he reached his destination. He has not had any nausea or vomiting. No significant belching. Social History Smoking Status: Former Smoker History of Alcohol Use: No Review of Systems Respiratory: + see HPI Cardiac: + see HPI He does report noticing a bulging in his epigastrium with exertion. This often produces discomfort has been present for some time. He has some trouble with ambulation due to with prior fracture of his left ankle. Generally speaking he gets around with a scooter. Objective Vital Signs Past 12 Hours Date Time Temp Pulse Resp B/P (MAP) Pulse Ox O2 Delivery O2 Flow Rate FiO2 01/22/17 19:03 36.5 59 18 119/77 (91) 96 01/22/17 16:00 95 Room Air 01/22/17 14:53 36.5 43 18 114/66 (82) 95 01/22/17 12:00 95 Room Air 01/22/17 11:49 148/90 (109) 01/22/17 11:18 36.5 65 18 155/101 (119) 97 01/22/17 09:41 103 01/22/17 08:00 95 Room Air 01/22/17 07:34 36.5 56 20 150/90 (110) 95 Last Recorded Weight-Kilograms: 103.800 Intake & Output 8-Hour Column 01/22/17 01/23/17 01/23/17 16:00 00:00 08:00 Intake Total 584 ml Balance 584 ml 24-Hour Column 01/23/17 08:00 Intake Total 584 ml Balance 584 ml Physical Exam The patient is alert and oriented. Mood and affect appeared normal. He answered all questions appropriately. HEENT: Pupils are equal and reactive to light and accommodation. Extraocular movements are intact. The sclerae are anicteric. Neuro: Cranial nerves intact Neck: Patient's neck is supple. He has palpable carotid pulses bilaterally without bruits on auscultation. There is no evidence of jugular venous distention. The thyroid is not enlarged. Lungs: Clear to auscultation bilaterally. He has good air movement without use of accessory muscles. No rales wheezes or rhonchi. Cardiac: Heart demonstrates a regular rate and rhythm. Normal S1 and S2. No murmurs on examination. Abdomen: Mildly distended but nontender Pulses: The patient has palpable radial pulses bilaterally that are equal in intensity Extremities: There was no evidence of hypoperfusion. There is no cyanosis or clubbing. There is no edema. Skin: I did not appreciate any rashes on examination today. Data Laboratory Results: Last 24 Hours Test 01/21/17 20:46 01/22/17 04:38 01/22/17 15:37 Total Creatine Kinase 63 U/L 59 U/L 55 U/L Creatine Kinase MB < 0.5 ng/ml < 0.5 ng/ml 0.7 ng/ml Creatine Kinase MB Ratio 1.3 Troponin I < 0.015 ng/ml < 0.015 ng/ml 0.087 ng/ml White Blood Count 7.82 K/uL Red Blood Count 4.78 M/uL Hemoglobin 14.1 g/dL Hematocrit 41.8 % Mean Corpuscular Volume 87.4 fL Mean Corpuscular Hemoglobin 29.5 pg Mean Corpuscular Hemoglobin Concent 33.7 g/dl Platelet Count 238 K/uL Mean Platelet Volume 11.6 fL Neutrophils (%) (Auto) 60.4 % Lymphocytes (%) (Auto) 23.9 % Monocytes (%) (Auto) 11.5 % Eosinophils (%) (Auto) 3.2 % Basophils (%) (Auto) 0.6 % Neutrophils # (Auto) 4.72 K/uL Lymphocytes # (Auto) 1.87 K/uL Monocytes # (Auto) 0.90 K/uL Eosinophils # (Auto) 0.25 K/uL Basophils # (Auto) 0.05 K/uL RDW Standard Deviation 46.4 fL RDW Coefficient of Variation 14.5 % Immature Granulocyte % (Auto) 0.4 % Immature Granulocyte # (Auto) 0.03 K/uL Prothrombin Time 10.9 SECONDS Prothromb Time International Ratio 1.0 Activated Partial Thromboplast Time 29.7 SECONDS Partial Thromboplastin Ratio 1.1 Sodium Level 138 mmol/L Potassium Level 4.6 mmol/L Chloride Level 103 mmol/L Carbon Dioxide Level 30 mmol/L Anion Gap 5.0 mmol/L Blood Urea Nitrogen 32 mg/dl Creatinine 1.50 mg/dl 1.30 mg/dl Est Creatinine Clear Calc Drug Dose 56.6 ml/min 64.4 ml/min Estimated GFR () 55.0 65.4 Estimated GFR (Non- 47.5 56.5 BUN/Creatinine Ratio 21.2 Random Glucose 124 mg/dl Calcium Level 9.3 mg/dl Magnesium Level 2.5 mg/dl Telemetry reviewed: No significant arrhythmias Stress echocardiography performed today did not reveal any evidence of inducible ischemia although his index symptoms were reproduced Assessment and Plan 1. Chest pain: Patient did undergo noninvasive testing today with dobutamine. He did have reproduction of his index symptoms but no objective evidence of inducible ischemia. I still think there is a good possibility he has an element of coronary stenosis responsible for his exertional symptoms. His history is complicated by significant gastrointestinal problems as well including hiatal hernia, reflux and abdominal distention. We once again discussed the option of coronary angiography. I did recommend a more thorough evaluation given the unusual in concerning nature of his symptoms. His stress test would suggest that he has low risk disease. Given the long weekend seem reasonable schedule him for an outpatient evaluation on January 26. He is scheduled for an angiogram at 11 a.m. in needs to arrive at the main entrance at 10 a.m. for preparation. He should be discharged with an aspirin and his atenolol. He was advised to refrain from any significant activity which is likely to cause his symptoms. He is to return for more prolonged symptoms or change in his symptoms.
[2017-01-22] MEDS: PANTOprazole SOD 40 MG TAB PO SCH (20:33)
[2017-01-23] MEDS: SODIUM CHLORIDE 0.9% 1000ML 1,000 ML IV SCH (03:46)
[2017-01-23 04:28] VITALS: BP 151/93; PULSE 60; TEMP 36.3; O2SAT 96
--- NOTE | 2017-01-23 05:49 | Progress Note ---
Subjective Date of Service: Jan 22, 2017. Subjective Pt evaluation today including: conversation w/ patient, physical exam, chart review, lab review, review of studies (echo, dobutamine stress), conversation w / automotive service consultant (Dr. Hood, cardiology), review of inpatient medication list Pain: no chest pain, and did not have any symptoms during stress test PO Intake: normal Voiding: no voiding problems tele stable overnight patient feels his symptoms are GI related has long history of GERD & hiatal hernia follows with [facility] he takes prilosec 40mg daily with occasional 2nd dose only complaint during my visit - throat "burning" sensation denies RUQ pain with eating meals again reiterates that his pre-hospital chest symptoms were brought on by activity Problem List Medical Problems: (1) Epigastric abdominal pain Status: Acute (2) Hiatal hernia Status: Acute (3) Hyperplasia Of Prostate, Unspec, 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: Chronic (4) Hypertension Nos Status: Chronic (5) Substernal chest pain Status: Acute Review of Systems Constitutional: No fever Respiratory: No cough, No sputum, No wheezing, No shortness of breath, No dyspnea on exertion Cardiac: + see HPI, No orthopnea, No PND, No edema Abdomen: No pain Objective Vital Signs Date Time Temp Pulse Resp B/P (MAP) Pulse Ox O2 Delivery O2 Flow Rate FiO2 01/22/17 19:03 36.5 59 18 119/77 (91) 96 01/22/17 16:00 95 Room Air 01/22/17 14:53 36.5 43 18 114/66 (82) 95 01/22/17 12:00 95 Room Air 01/22/17 11:49 148/90 (109) 01/22/17 11:18 36.5 65 18 155/101 (119) 97 01/22/17 09:41 103 01/22/17 08:00 95 Room Air 01/22/17 07:34 36.5 56 20 150/90 (110) 95 01/22/17 05:54 132/83 (99) 01/22/17 04:31 36.7 48 16 119/78 (92) 95 Room Air 01/22/17 04:10 Room Air 01/22/17 00:15 Room Air 01/21/17 23:34 36.6 51 18 95/56 (69) 95 Room Air Physical Exam General Appearance: no apparent distress ENT: pharynx normal Neck: no JVD Respiratory/Chest: lungs clear, no respiratory distress, no accessory muscle use Cardiovascular: regular rate, rhythm, no gallop, no murmur Abdomen: normal bowel sounds, non tender, soft, no organomegaly Extremities: no pedal edema Neurologic/Psychiatric: alert, oriented x 3 Comments: chest - no reproducible chest wall pain Laboratory Results Last 24 Hours Test 01/22/17 04:38 01/22/17 15:37 White Blood Count 7.82 K/uL Red Blood Count 4.78 M/uL Hemoglobin 14.1 g/dL Hematocrit 41.8 % Mean Corpuscular Volume 87.4 fL Mean Corpuscular Hemoglobin 29.5 pg Mean Corpuscular Hemoglobin Concent 33.7 g/dl Platelet Count 238 K/uL Mean Platelet Volume 11.6 fL Neutrophils (%) (Auto) 60.4 % Lymphocytes (%) (Auto) 23.9 % Monocytes (%) (Auto) 11.5 % Eosinophils (%) (Auto) 3.2 % Basophils (%) (Auto) 0.6 % Neutrophils # (Auto) 4.72 K/uL Lymphocytes # (Auto) 1.87 K/uL Monocytes # (Auto) 0.90 K/uL Eosinophils # (Auto) 0.25 K/uL Basophils # (Auto) 0.05 K/uL RDW Standard Deviation 46.4 fL RDW Coefficient of Variation 14.5 % Immature Granulocyte % (Auto) 0.4 % Immature Granulocyte # (Auto) 0.03 K/uL Prothrombin Time 10.9 SECONDS Prothromb Time International Ratio 1.0 Activated Partial Thromboplast Time 29.7 SECONDS Partial Thromboplastin Ratio 1.1 Sodium Level 138 mmol/L Potassium Level 4.6 mmol/L Chloride Level 103 mmol/L Carbon Dioxide Level 30 mmol/L Anion Gap 5.0 mmol/L Blood Urea Nitrogen 32 mg/dl Creatinine 1.50 mg/dl 1.30 mg/dl Est Creatinine Clear Calc Drug Dose 56.6 ml/min 64.4 ml/min Estimated GFR () 55.0 65.4 Estimated GFR (Non- 47.5 56.5 BUN/Creatinine Ratio 21.2 Random Glucose 124 mg/dl Calcium Level 9.3 mg/dl Magnesium Level 2.5 mg/dl Total Creatine Kinase 59 U/L 55 U/L Creatine Kinase MB < 0.5 ng/ml 0.7 ng/ml Creatine Kinase MB Ratio 1.3 Troponin I < 0.015 ng/ml 0.087 ng/ml Assessment and Plan 66yo male - 1. chest pain - initial work-up including EKG, cardiac enzymes negative. Underwent dobutamine stress echo today - negative for inducible ischemia. His resting echo yesterday showed an apparent area of hypokinesis in the apex but this was not appreciated on today's study. Spoke with Dr. Hood - even despite the negative stress test we are still concerned by his exertional chest pain symptomatology. Thus, plan is for outpatient cardiac cath on Wednesday of this coming week. Will cont aspirin and beta shannan. Can stop the nitropaste. Recheck troponin today and again in am due to throat burning symptoms. 2. GERD with throat burning - is latter due to his GERD? increase his PPI to twice daily add carafate ac/hs if cardiac cath is negative then his presenting symptoms are likely GI in origin and he will need to return to [facility] 3. acute kidney injury - likely due to prerenal state from the lasix given yesterday. Repeat Cr today and then again in am. Hydrate with NS at 100cc/hr. 4. pre-DM - will professor of counseling on significance of this. 5. DVT proph - if he stays beyond tomorrow then add lovenox. anticipate d/c on Wednesday am if labs are stable and he is feeling well Continued [facility] stay due to: multiple IV medications needed Discharge planning: home
[2017-01-23] MEDS: SUCRALFATE 1 GM/10 ML UDC PO SCH ×2 (06:28→10:57)
[2017-01-23 07:23] VITALS: BP 158/81; PULSE 72; TEMP 36.5; O2SAT 95
[2017-01-23 07:25] LABS: BUN/CREATININE RATIO 25.1 (10-20); CALCIUM 8.6 mg/dl (8.5-10.1); CREATININE 1.1 mg/dl (0.60-1.40); POTASSIUM 4.2 mmol/L (3.5-5.1)
[2017-01-23] MEDS: ASPIRIN 81 MG ECTAB PO SCH (07:33)
[2017-01-23] MEDS: PANTOprazole SOD 40 MG TAB PO SCH (07:34)
[2017-01-23 07:41] LABS: CHOLESTEROL 165 mg/dl (0-200); CHOLESTEROL/HDL RATIO 5.2; HDL CHOLESTEROL 32 mg/dl; LDL CHOLESTEROL CALCULATED 106 mg/dl; TRIGLYCERIDES 134 mg/dl (0-150); VERY LOW DENSITY LIPOPROT CALC 27 mg/dl
[2017-01-23 08:00] VITALS: O2SAT 95
[2017-01-23] MEDS ORDERED: OMEP40CA41 PO ×2 (10:15)
[2017-01-23] MEDS ORDERED: ASPEC81 PO ×2 (10:15)
[2017-01-23] MEDS ORDERED: SUCR1TAB29 PO ×2 (10:15)
[2017-01-23] MEDS ORDERED: NTRSLP4 SL ×2 (10:15)
--- NOTE | 2017-01-23 10:30 | Discharge Instructions ---
Discharge Instructions Date of Service Jan 23, 2017. Admission Reason for Admission: chest pain Discharge Discharge Diagnosis / Problem: chest pain - heart attack was ruled out Discharge Goals Goal(s): Learn about illness, Diagnostic testing, Therapeutic intervention Activity Recommendations Activity Limitations: as noted below Until your cardiac catheterization is completed this coming Wednesday please AVOID the following - 1. heavy lifting over 15 pounds 2. 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 going to the gym 4. running, biking, swimming LIGHT walks are ok between now and Wednesday. . Instructions / Follow-Up Instructions / Follow-Up From Dr. Stover - 1. Despite your normal/negative stress test Dr. Hood and I are still concerned about your heart. Thus, on Wednesday01/26/2017, you will have a cardiac catheterization at [facility]. Please do the following - * starting at MIDNIGHT on Wednesday night please do not eat or drink anything - you need to be fasting for your procedure * it IS permissible to take your morning medications on Wednesday with a small sip of water * report to [facility] - MAIN ENTRANCE - at 10:00am on Wednesday, - for your cardiac catheterization 2. Please start a baby aspirin 81mg once daily. Start this tomorrow on Wednesday. 3. In the event you develop chest pain please take the nitroglycerin tablets. Place these under your tongue. You can take 1 tablet every 5 minutes for a total of 3. If you have to take any nitroglycerin between and Wednesday morning do not wait --- come to the hospital immediately for evaluation. Again the nitroglycerin tablets are being given to you as a precautionary measure. 4. For your heartburn/reflux - * INCREASE your prilosec (omeprazole) to 40mg TWICE DAILY * TAKE carafate (sucralfate) 1gram prior to meals and at bedtime for 10 days 5. You have evidence of "pre-diabetes". Please speak to your family doctor about this. This will need to be monitored at least annually, preferably twice a year. 6. Your cholesterol levels were mildly high. Please speak to your family doctor and Dr. Hood about this further. You may need medication for your cholesterol. 7. Report back to [facility] [facility] if - * you develop recurrent chest pain * you have to use any nitroglycerin tablets * you develop worsening shortness of breath * you develop jaw pain, left arm pain, nausea, or vomiting Current Hospital Diet Patient's current hospital diet: AHA Diet (Heart Healthy) Discharge Diet Recommended Diet: AHA Diet (Heart Healthy) Procedures Procedures Performed: stress test - showed normal heart function, normal valve function, and all areas of the heart appeared to be getting good blood flow. Pending Studies Studies pending at discharge: no Laboratory Results Hemoglobin A1c Test 01/21/17 10:20 Range/Units Estimated Average Glucose 128 mg/dl Hemoglobin A1c 6.1 H 4.5-5.6 % Lipid Panel Test 01/23/17 06:22 Range/Units Triglycerides Level 134 0-150 mg/dl Cholesterol Level 165 0-200 mg/dl HDL Cholesterol 32 mg/dl Cholesterol/HDL Ratio 5.2 LDL Cholesterol, Calculated 106 mg/dl Medical Emergencies . Who to Call and When: Medical Emergencies: If at any time you feel your situation is an emergency, please call 911 immediately. . Non-Emergent Contact Non-Emergency issues call your: Primary Care Provider, Signal Maintenance Technician Call Non-Emergent contact if: your pain is not controlled, your pain is worsening, your pain is unusual for you, your pain is concerning you, you have any medication questions . . "Provider Documentation" section prepared by Fernie Stover. . VTE Core Measure Inpt VTE Proph given/why not?: SCD's
[2017-01-23 10:41] VITALS: BP 158/81; PULSE 72; TEMP 36.5; O2SAT 95
--- NOTE | 2017-01-25 00:50 | Discharge Summary ---
Discharge Summary Date of Service Jan 25, 2017. Discharge Summary Admission Date: Jan 21, 2017 at 13:02 Discharge Date: Jan 23, 2017 Discharge Disposition: Home Principal Diagnosis: chest pain, acute KS ruled out Problems/Secondary Diagnoses: 1. BPH 2. HTN 3. acute kidney injury - resolved 4. hyperlipidemia 5. pre-T2DM 6. GERD 7. hiatal hernia Immunizations: Have You Had Influenza Vaccine: Unknown History of Tetanus Vaccine?: Unknown History of Pneumococcal: Unknown History of Hepatitis B Vaccine: Unknown Procedures: 1. echocardiogram: The left ventricle is grossly normal size. There is borderline asymmetric left ventricular hypertrophy. Ejection Fraction = 55-60%. Left ventricular systolic function is normal. Grade I diastolic dysfunction, (abnormal relaxation pattern). There appears to be mild to moderate hypokinesis of the apical anterior wall. 2. dobutamine stress echocardiogram: Left Ventricular Findings with Stress * No evidence of inducible ischemia at the heart rate achieved. Left Ventricle * Left ventricular systolic function is normal. * The left ventricular wall motion is normal at rest. Consultations: cardiology - Corby Hood MD Medication Reconciliation New Medications: Sucralfate (Carafate) 1 Gm Tab 1 TAB PO ACHS for 10 Days, #40 TAB 0 Refills Aspirin (Aspirin EC Low Dose) 81 Mg Ectab 81 MG PO QAM, #90 TABS 3 Refills Nitroglycerin (Nitrostat) 0.4 Mg/1 Tab Subl 0.4 MG SL [id number] PRN for Chest Pain, #1 BTL 0 Refills max 3 tabs in 15 minutes Changed Medications: Omeprazole (Prilosec) 40 Mg Cap 1 CAP PO BID for 30 Days, #60 CAP 1 Refill (Changed from: Pantoprazole (Protonix ) 40 Mg Tab 40 Mg PO QAM #30 TAB) Continued Medications: Atenolol (Tenormin) 50 Mg Tab 50 MG PO QAM, TAB Discontinued Medications: Ranitidine Hcl (Zantac) 300 Mg Tab 300 MG PO HS, TAB Referrals At Discharge Follow up Referrals: Health Information Administrator Referral - 01/26/17 with Corby Hood MD Discharge Exam Physical Exam: General Appearance: WD/WN, no apparent distress, + obese ENT: pharynx normal Neck: no JVD Respiratory/Chest: lungs clear, no respiratory distress, no accessory muscle use Cardiovascular: regular rate, rhythm, no gallop, no murmur, normal peripheral pulses Abdomen / GI: normal bowel sounds, non tender, soft, no organomegaly Extremities: no pedal edema Neurologic/Psychiatric: alert, oriented x 3 Hospital Course HISTORY OF PRESENT ILLNESS: The patient is a 66-year-old male who presents to the emergency department with worsening intermittent chest tightness with discomfort into his neck and jaw with teeth pain worsening over the past month. Last week when he was at the [facility] he became so short of breath that he sat down and almost called EMS to bring him to the emergency department. He presents to the emergency department today because of worsening symptoms over the past few days. He is feeling okay while at rest, but developed symptoms very quickly with any type of exertion. HOSPITAL COURSE: 1. chest pain - initial work-up including EKG, chest x-ray, cardiac enzymes, and telemetry were normal/negative. 2D echocardiogram appeared to show an area of hypokinesis in the apex. He was seen by Dr. Corby Hood, cardiology, and cardiac catheterization was recommended but the patient refused such. He was agreeable to stress testing. He subsequently underwent a dobutamine stress echocardiogram. Rest images failed to re-demonstrate the apical wall motion abnormality seen on the prior echocardiogram. Stress images did not show any inducible ischemia. [id number], despite the negative stress test, and in light of his symptoms & multiple CAD risk factors, he was strongly advised to undergo elective left heart catheterization. He was finally agreeable, and this has been arranged for 01/26/17, at [facility]. While awaiting his catheterization he was advised to continue his beta shannan and remain on aspirin daily. 2. GERD with throat burning - in the event his cardiac catheterization is normal perhaps some of his symptoms are due to GERD/hiatal hernia. He was asked to increase his prilosec to twice daily and to take carafate for 10 days while awaiting his cardiac catheterization. If indeed his cardiac cath is negative then he will be asked to reconsult with his strawberry grower at [facility]. 3. acute kidney injury - this was felt to be due to IV lasix administration that was given at time of ER presentation. Peak creatinine was 1.5, improving to his baseline of 1.1 following IV hydration. 4. pre-DM and hyperlipidemia - he was counseled on the significance of these issues and was asked to follow-up with his PCP to discuss lifestyle modification , possible medications, etc. Total Time Spent: Greater than 30 minutes This includes examination of the patient, discharge planning, medication reconciliation, and communication with other providers. Discharge Instructions Please refer to the electronic Patient Visit Report (Discharge Instructions) for additional information. Follow-Up 10am on 01/26/17, for cardiac catheterization with Dr. Corby Hood at [facility] Additional Copies To Corby Hood MD; Lori Ponce, JairoR.N.P; Fariba Calzada ., SOILA
[2017-02-05] MEDS ORDERED: ATEN50TA8 PO ×2 (20:02)
== END 2017-01-23 12:20 | disposition home or self-care (01) | DRG 313 ==
LOC: C.EDB 10:01 → C.MED 13:02 → ENRESERV 13:25
PROVIDERS: ADMIT Hospitalist; ATTEND Internal Medicine
DX: R07.2 Precordial pain (principal); N17.9 Acute kidney failure, unspecified; R73.9 Hyperglycemia, unspecified; I10 Essential (primary) hypertension; K21.9 Gastro-esophageal reflux disease without esophagitis; K44.9 Diaphragmatic hernia without obstruction or gangrene; E78.5 Hyperlipidemia, unspecified; Z79.82 Long term (current) use of aspirin; Z79.899 Other long term (current) drug therapy; Z87.891 Personal history of nicotine dependence

== ENCOUNTER → 2017-01-26 | Day surgery (SDC) | payer OTHER ==
[~2017-01-26] VITALS: Ht 175.3 cm; Wt 106.0 kg
[~2017-01-26] MED LIST changes: +ACET-1256 PO; +ACETAMINOPHEN 325 MG TAB PO PRN; +ASPEC81 PO; +ASPI81TA28 PO; +ATEN50TA8 PO; +ATROPINE SULFATE 0.1 MG/ML 5ML SYR IV PRN; +FENTANYL CITRATE INJ 50 MCG/1 ML 2 ML VIAL ONE; +FURO-85 PO; +HEPARIN SOD (PORCINE) 1000 UNIT/ML 10 ML VIAL ONE; +LIDOCAINE HCL 1% 20 ML VIAL ONE; +METOPROLOL TARTRATE 50 MG TAB ONE; +MIDAZOLAM HCL 1 MG/ML 2ML VIAL ONE; +NITROGLYCERIN/D5W 100MCG/ML 20ML SYR ONE; +NTRGSL/4 UT; +NTRSLP4 SL; +NiCARDipine HCL INJ 2.5 MG/ML 10 ML AMP ONE; +OMEP40CA41 PO; +ONDANSETRON INJ 2 MG/ML 2 ML VIAL IV PRN; +OXYC-609 PO; +POTA20TA13 PO; +SIMV40TA2 PO; +SODIUM CHLORIDE 0.9% 1000ML 1,000 ML IV SCH; +SODIUM CHLORIDE 0.9% 1000ML 250 ML IV PRN; +SUCR1TAB PO; +SUCR1TAB29 PO; +TAMS0.4C38 PO
[2017-01-26 10:16] VITALS: BP 170/99; PULSE 58; TEMP 36.8; O2SAT 98; Ht 175.3 cm; Wt 106.0 kg
--- NOTE | 2017-01-26 10:58 | Procedure Note ---
Pre-Mod Sedation Assessment General Date of Moderate Sedation: Jan 26, 2017. Vital Signs: Vital Signs Past 12 Hours Date Time Temp Pulse Resp B/P (MAP) Pulse Ox O2 Delivery O2 Flow Rate FiO2 01/26/17 10:16 36.8 58 20 170/99 98 Room Air Review Airway Class: III Pre-Sedation Airway Assessment Oral Cavity: WNL Able to Visualize Vocal Cords: No Short Thick Neck: No Hx of Sleep Apnea: No Smoking Status: Never Smoker Mallampati Classification: Class III ASA Classification: Class III Procedure Planning Contraindications-for Mod Sed: None Yes Notes The planned sedation has been discussed with the patient and consent obtained. I have identified the patient, determined the appropriateness of sedation and have assessed the patient immediately prior to the procedure. All medicine(s) and interventions are by my order.
--- NOTE | 2017-01-26 10:58 | History & Physical Bridge Note ---
H&P Re-Evaluation Bridge Note: I have examined the patient, reviewed the History & Physical and in the interval since the performance of the History & Physical I have noted the following changes of clinical significance: One brief episode of tachycardia after drinking coffee. Not much more jaw or stomach pain.
--- NOTE | 2017-01-26 13:04 | Procedure Note ---
Procedure Note Date of Service Jan 26, 2017. Procedure Note Procedure performed: Cardiac catheterization Staff gas prover: Corby Hood Indication: Procedure in detail: The patient was informed of the risks benefits and alternatives to the intended procedure, he understood such an which proceed. He was taken to the cardiac catheterization suite in a fasting state. Conscious sedation was administered per protocol the patient was monitored electrocardiographically throughout today 's procedure. The right wrist area was prepped and draped in usual sterile fashion. This area was anesthetized using subcutaneous menstruation lidocaine solution. The right radial artery was then accessed using Seldinger technique, and a arterial sheath was placed at this site over a guidewire. The sheath was used to facilitate passage of the cardiac catheter for coronary angiography and left heart catheterization. However, the patient's left subclavian was quite tortuous and the aortic root appeared somewhat dilated. This did not allow for engagement of the coronary arteries from this approach. The right groin had previously been prepped and draped in a sterile fashion this area was subsequently anesthetized using subcutaneous menstruation lidocaine solution. The right femoral artery was then accessed using modified Seldinger technique and a 5 Emir[place] arterial sheath was placed at this site over a guidewire. This sheath was then used to facilitate passage of cardiac catheters for engagement of the coronary arteries. Coronary angiogram was then obtained in multiple orthogonal views prior to removal of the catheters. Limited left subclavian angiography was also performed in order to identify the left internal mammary artery. At the conclusion of the procedure the sheath was removed and hemostasis was achieved at the access site using manual pressure. The patient tolerated procedure well, there were no immediate complications. Equipment used: 5 Emirati JL5. Five Emirati JR4 Findings: Opening aortic pressure: 114/75 Left ventricular pressure: 163/5 Left ventricular end-diastolic pressure: 10 Coronary angiography: Left main left main coronary artery appeared calcified in its proximal portion. There was a complex lesion at the bifurcation of the left circumflex and left anterior descending artery. This appeared compromised the lumen 50-60 percent Left anterior descending: Left anterior descending was a large transapical vessel. It produced a large 1st diagonal and had approximately 60 70 percent lesion in its proximal portion. The ongoing LAD had a 70 percent lesion after the takeoff of the 1st diagonal Left circumflex: This was a nondominant vessel. Proximally 90 percent occluded in its proximal portion with involvement of the distal left main. It produced a very diminutive om 1 large OM 2 with luminal irregularities Right coronary artery: The right coronary was a very large dominant vessel. There were luminal irregularities but no discrete stenoses. 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
[2017-01-26 14:45] VITALS: BP 176/95; PULSE 58; O2SAT 96
== END | disposition short-term general hospital (02) ==
LOC: C.CATH 09:54
PROVIDERS: ATTEND Internal Medicine Clinical Cardiac Electrophysiology
DX: I25.10 Atherosclerotic heart disease of native coronary artery without angina pectoris (principal); K21.9 Gastro-esophageal reflux disease without esophagitis; K44.9 Diaphragmatic hernia without obstruction or gangrene; I10 Essential (primary) hypertension; E11.9 Type 2 diabetes mellitus without complications; G47.33 Obstructive sleep apnea (adult) (pediatric); Z83.3 Family history of diabetes mellitus; Z82.49 Family history of ischemic heart disease and other diseases of the circulatory system; Z81.8 Family history of other mental and behavioral disorders; Z87.891 Personal history of nicotine dependence

== ENCOUNTER 2017-02-05 14:20 | Emergency (ER) | payer OTHER ==
[~2017-02-05] VITALS: Ht 172.7 cm; Wt 105.9 kg
[~2017-02-05 14:20] MED LIST changes: -ACET-1256 PO; -ACETAMINOPHEN 325 MG TAB PO PRN; -ASPI81TA28 PO; -ATEN50TA8 PO; -ATROPINE SULFATE 0.1 MG/ML 5ML SYR IV PRN; -FENTANYL CITRATE INJ 50 MCG/1 ML 2 ML VIAL ONE; -FURO-85 PO; -HEPARIN SOD (PORCINE) 1000 UNIT/ML 10 ML VIAL ONE; -LIDOCAINE HCL 1% 20 ML VIAL ONE; -METOPROLOL TARTRATE 50 MG TAB ONE; -MIDAZOLAM HCL 1 MG/ML 2ML VIAL ONE; -NITROGLYCERIN/D5W 100MCG/ML 20ML SYR ONE; -NTRGSL/4 UT; -NiCARDipine HCL INJ 2.5 MG/ML 10 ML AMP ONE; -ONDANSETRON INJ 2 MG/ML 2 ML VIAL IV PRN; -OXYC-609 PO; -PANT40TA PO; -POTA20TA13 PO; -RANI300T2 PO; -SIMV40TA2 PO; -SODIUM CHLORIDE 0.9% 1000ML 1,000 ML IV SCH; -SODIUM CHLORIDE 0.9% 1000ML 250 ML IV PRN; -SUCR1TAB PO; -TAMS0.4C38 PO
[2017-02-05 14:26] VITALS: TEMP 36.5; Ht 172.7 cm; Wt 105.9 kg
[2017-02-05 14:44] VITALS: O2SAT 97
--- NOTE | 2017-02-05 14:50 | EMERGENCY ROOM VISIT NOTE ---
History Report prepared by Fran: Mor Canas Under the Supervision of: Dr. Jeffrey Ho M.D. First contact with patient: 14:33 Chief Complaint: SHORTNESS OF BREATH Stated Complaint: CABG X2 ON 01/28 - SOB History of Present Illness The patient is a 66 year old male who presents to the Emergency Room with complaints of worsening shortness of breath beginning yesterday. The patient state that he had a CABGx2 performed 8 days ago in [place] and was discharged 4 days ago. He reports that when he was discharged, he was able to walk three laps around the hallway. The patient notes that his dose of Lasix and potassium was increased to 20mg. He states that he is not able to walk without becoming short of breath. The patient reports that he has a mild cough. He denies fevers , chest pain, edema to his legs, falling, trauma, urinary symptoms, and back pain. The patient notes he is not on blood thinners. Source of History: patient Onset: yesterday Position: chest Quality: other (SOB) Timing: worsening Modifying Factors (Worsening): movement Associated Symptoms: + cough, No fevers, No chest pain, No back pain, No urinary symptoms Note: He denies edema to his legs, falling, and trauma. Review of Systems See HPI for pertinent positives & negatives. A total of 10 systems reviewed and were otherwise negative. Past Medical & Surgical Medical Problems: (1) Acute CHF (2) Hyperplasia Of Prostate, Unspec, 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 & Oth Luts (3) Hypertension Nos (4) Inf Arthrit Nos-Ankle (5) Personal History Of Urinary Calculi (6) Unstable angina Surgical Problems: (1) Cataract Nos Old medical records were reviewed. Nurse's notes were reviewed and I agree with. Family History Depression Diabetes mellitus Hypertension Social History Smoking Status: Former Smoker Drug Use: none Marital Status: Housing Status: lives with family Occupation Status: retired Current/Historical Medications Scheduled Aspirin (Aspirin Ec), 81 MG PO DAILY Atenolol (Tenormin), 50 MG PO QAM Furosemide (Lasix), 20 MG PO DAILY Omeprazole (Prilosec), 40 MG PO BID Potassium Chloride Microencaps (Potassium Chloride Er), 20 MEQ PO DAILY Simvastatin (Zocor), 40 MG PO QPM Sucralfate (Sucralfate), 1 GM PO ACHS Tamsulosin Hcl (Flomax), 0.4 MG PO DAILY Scheduled PRN Acetaminophen (Tylenol), 1,000 MG PO Q8 PRN for Mild Pain Nitroglycerin (Nitrostat), 0.4 MG UT UD PRN for Chest Pain Oxycodone HCl (Oxycodone HCl), 5 MG PO Q4H PRN for Pain Allergies Coded Allergies: Morphine (Verified Adverse Reaction, Unknown, GI upset, 01/26/17) Physical Exam Vital Signs Date Time Temp Pulse Resp B/P (MAP) Pulse Ox O2 Delivery O2 Flow Rate FiO2 02/05/17 17:52 70 20 132/93 96 Room Air 02/05/17 16:49 69 22 155/88 Room Air 02/05/17 14:59 68 02/05/17 14:44 97 Room Air 02/05/17 14:44 97 Room Air 02/05/17 14:26 36.5 61 18 149/99 96 Room Air Physical Exam General: Well developed well nourished in no acute distress, breathing comfortably on room air. Normal speech. Non-ill appearing older male. HEENT: Normal cephalic atraumatic. Pupils are equal round and reactive to light. Extraocular movements are intact. Oropharynx is pink with moist mucous membranes. No swelling of the mouth lips or tongue. Neck: Supple with a midline trachea. No meningeal signs or stiffness, no JVD or bruits. No Stridor. Chest: Clear to auscultation bilaterally. No wheezes or rhonchi. No increased work of breathing. Well healing incision yang, no evidence of infection or dehiscence. Heart: regular rate and rhythm. Abdomen: Soft nontender, nondistended without rebound guarding or rigidity. Extremities: No cyanosis clubbing. 1+ bilateral lower extremity edema. No calf tenderness or assymetry. Bruising and well healing graft wound in left leg. Spine/Back. Non tender to palpation. No CVA tenderness Skin: Good turgor without rashes. Neurologic exam: Cranial nerves two through 12 are intact. Motor and sensation are intact and symmetrical throughout. Medical Decision & Procedures ER Provider Diagnostic Interpretation: Radiology results as stated below per my review and radiologist interpretation: CHEST ONE VIEW PORTABLE CLINICAL HISTORY: Atypical chest pain COMPARISON STUDY: 01/21/2017 FINDINGS: The heart is enlarged. There are postsurgical changes of a midline sternotomy. There is a retrocardiac opacity consistent with a hiatal hernia. Linear opacities at both lung bases are likely atelectatic. There is a small left pleural effusion.[ IMPRESSION: 1. Interval midline sternotomy 2. Cardiomegaly. No evidence of failure 3. Linear bibasilar opacities likely atelectatic 4. Hiatal hernia 5. Small left pleural effusion Electronically signed by: King Elizalde M.D. 02/05/2017 3:33 PM Dictated Date/Time: 02/05/2017 3:[address] ANGIOGRAM OF THE CHEST CLINICAL HISTORY: Atypical chest pain and shortness of breath. COMPARISON STUDY: Chest x-ray dated 02/05/2017 TECHNIQUE: Following the IV administration of 120 mL of Optiray-320, CT angiogram of the thorax was performed from the thoracic inlet to the lung bases utilizing the pulmonary embolus protocol. Images are reviewed in the axial, sagittal, and coronal planes. IV contrast was administered without complication. MIP imaging was performed. A dose lowering technique was utilized adhering to the principles of ALARA. CT DOSE: 1567.66 mGy.cm FINDINGS: There are postsurgical changes of a midline sternotomy. There is infiltration of the fat posterior to the sternum, likely related to recent surgery. There is a tiny droplet of extrapleural air lateral to the sternum to the left of midline. There are coronary artery calcifications. There is no pathologic mediastinal or hilar lymphadenopathy. There is a 1 cm right axillary lymph node which is the upper limits of normal in size. There was no evidence of thoracic aortic dilatation. There were no pulmonary artery filling defects to indicate acute pulmonary embolism. There are small bilateral pleural effusions left greater than right. There are dependent airspace opacities which are felt to represent compressive atelectasis. There is a large hiatal hernia IMPRESSION: 1. No evidence of acute pulmonary embolism 2. Recent midline sternotomy. Increased soft tissue within the retrosternal anterior mediastinum is felt to be postsurgical. There is a small droplet of extrapleural air to the left of the sternum. While likely representing a normal postsurgical finding, mediastinitis cannot be excluded with certainty 3. Small bilateral pleural effusions left greater than right. 4. Large hiatal hernia 5. Dependent airspace opacities which are felt to be atelectatic Electronically signed by: King Elizalde M.D. 02/05/2017 4:51 PM Dictated Date/Time: 02/05/2017 4:44 PM ABD/PELVIS IV CONTRAST ONLY CLINICAL HISTORY: 66 years-old Male presenting with eval for liver disease, shortness of breath, status post coronary bypass. TECHNIQUE: Multidetector CT of the abdomen and pelvis was performed after the administration of intravenous contrast. IV contrast: 120 mL of Optiray 320. A dose lowering technique was used consistent with the principles of ALARA (as low as reasonably achievable). COMPARISON: 04/02/2016. CT DOSE (mGy.cm): The estimated cumulative dose is 1567.66 inclusive of the CTA chest.. FINDINGS: Kiln Stoker topogram: Median sternotomy. Lung bases: Small left and trace right pleural effusions with associated dependent passive atelectasis. Multichamber enlargement of the heart with coronary artery and aortic valve calcification. Gas and fluid with associated infiltration in the substernal region consistent with post coronary bypass changes. No rim-enhancing fluid collection. Moderate hiatal hernia. Liver: Normal morphology. No liver lesion. Patent hepatic vasculature. Biliary: No intrahepatic or extrahepatic biliary ductal dilatation. Normal gallbladder. Pancreas: Mild parenchymal atrophy. Spleen: Normal. Adrenal glands: Normal. Kidneys and ureters: Exophytic hypodensity in the left kidney likely simple cyst. No hydronephrosis. Normal ureters. Bladder: Gas in the urinary bladder may relate to recent catheterization. Pelvic organs: Prostate enlargement likely secondary to benign prostatic hyperplasia. Bowel: Diverticulosis of the sigmoid colon normal appendix. No bowel obstruction. Moderate hiatal hernia. Peritoneal cavity: No free fluid or intraperitoneal gas. Vasculature: Atherosclerosis of the normal caliber abdominal aorta. IVC patent. Lymph nodes: Few small lymph nodes in the small bowel mesentery. No pathologically enlarged lymph nodes by CT size criteria. Abdominal wall: Normal. Musculoskeletal: Degenerative changes of the spine. IMPRESSION: 1. Postsurgical changes of coronary artery bypass with small left and trace right pleural effusions with associated massive atelectasis. 2. Cardiomegaly. 3. No acute intra-abdominal pathology. Specifically, allowing for the single phase examination, the liver is normal. Electronically signed by: Javed Rob M.D. 02/05/2017 4:54 PM Dictated Date/Time: 02/05/2017 4:48 PM Laboratory Results 02/05/17 14:50 Red Blood Count 3.53, Mean Corpuscular Volume 90.1, Mean Corpuscular Hemoglobin 28.9, Mean Corpuscular Hemoglobin Concent 32.1, Mean Platelet Volume 9.9, Neutrophils (%) (Auto) 64.1, Lymphocytes (%) (Auto) 13.7, Monocytes (%) (Auto) 11.5, Eosinophils (%) (Auto) 5.2, Basophils (%) (Auto) 0.5, Neutrophils # (Auto ) 6.01, Lymphocytes # (Auto) 1.29, Monocytes # (Auto) 1.08, Eosinophils # (Auto ) 0.49, Basophils # (Auto) 0.05 02/05/17 14:50 Test 02/05/17 14:50 02/05/17 15:19 White Blood Count 9.39 K/uL (4.8-10.8) Red Blood Count 3.53 M/uL (4.7-6.1) Hemoglobin 10.2 g/dL (14.0-18.0) Hematocrit 31.8 % (42-52) Mean Corpuscular Volume 90.1 fL (80-100) Mean Corpuscular Hemoglobin 28.9 pg (25-34) Mean Corpuscular Hemoglobin Concent 32.1 g/dl (32-36) Platelet Count 374 K/uL (130-400) Mean Platelet Volume 9.9 fL (7.4-10.4) Neutrophils (%) (Auto) 64.1 % Lymphocytes (%) (Auto) 13.7 % Monocytes (%) (Auto) 11.5 % Eosinophils (%) (Auto) 5.2 % Basophils (%) (Auto) 0.5 % Neutrophils # (Auto) 6.01 K/uL (1.4-6.5) Lymphocytes # (Auto) 1.29 K/uL (1.2-3.4) Monocytes # (Auto) 1.08 K/uL (0.11-0.59) Eosinophils # (Auto) 0.49 K/uL (0-0.5) Basophils # (Auto) 0.05 K/uL (0-0.2) RDW Standard Deviation 49.3 fL (36.4-46.3) RDW Coefficient of Variation 15.2 % (11.5-14.5) Immature Granulocyte % (Auto) 5.0 % Immature Granulocyte # (Auto) 0.47 K/uL (0.00-0.02) Nucleated RBC Absolute Count (auto) 0.04 K/uL (0-0) Nucleated Red Blood Cells % 0.4 % Anion Gap 5.0 mmol/L (3-11) Est Creatinine Clear Calc Drug Dose 84.6 ml/min Estimated GFR () 89.9 Estimated GFR (Non- 77.5 BUN/Creatinine Ratio 22.3 (10-20) Calcium Level 9.5 mg/dl (8.5-10.1) Total Bilirubin 0.7 mg/dl (0.2-1) Direct Bilirubin 0.3 mg/dl (0-0.2) Aspartate Amino Transf (AST/SGOT) 108 U/L (15-37) Alanine Aminotransferase (ALT/SGPT) 153 U/L (12-78) Alkaline Phosphatase 238 U/L (45-117) Pro-B-Type Natriuretic Peptide 774 pg/ml (0-900) Total Protein 7.7 gm/dl (6.4-8.2) Albumin 3.4 gm/dl (3.4-5.0) Lipase 402 U/L (73-393) Bedside Troponin I 0.060 ng/ml (0-0.045) Laboratory studies as stated above per my review. ECG Indication: SOB/dyspnea Rate (beats per minute): 67 Rhythm: normal sinus Findings: no acute ischemic change, no ectopy Comparison ECG Date: 01/23/17 Change: no significant change ED Course 1434: Past medical records reviewed. The patient was evaluated in room B08, and a complete history and physical examination were performed. 1542: I reevaluated the patient, and he is resting comfortably. I updated him of her current exam findings. 1601: I reevaluated the patient. He is feeling better and is waiting on his lab results. 1701: I reevaluated the patient, and he would like to go home. I discussed the remaining lab results and exam findings. 1722: I discussed the patient's case with Dr. Marti, Cardiothoracic Surgeon. He agreed with the treatment plan. 1744: Upon reevaluation, the patient is resting and feeling better. He verbalized agreement of the treatment plan. The patient was discharged home. Medical Decision Differentials include, but are not limited to; PE, anemia, CHF, pneumonia, electrolyte metabolic abnormality. This patient comes in as described above. He is status post 8 days CABG. He's had increasing shortness breath or last couple days and they did increase his Lasix. It is francine to tell if he has any swelling of his legs concede did recently have vein harvesting on the right on the left is some chronic edema he tells me. He does have some edema but it's only mild. He does not feel his abdomen is more distended. His lungs sound clear. Chest x-ray shows cardiomegaly with a small effusion but without overt failure. Troponin was minimally elevated at 0.06 which is likely elevated from his recent CABG. His EKG is nonischemic . He's had no chest pain. This is probably from the recent surgery. I did do a chest CT to rule out PE and other pathology as well as abdominal CT scan. He was reassessed frequently. His CAT scan shows no PE there are some small pleural effusion and other postsurgical changes. There is nothing to suggest mediastinitis on his exam there is a tiny droplet of air which is most likely postsurgical. I did discuss the CAT scan findings as well as the patient's overall picture and labs at length with Dr. Marti, the cardiothoracic surgeon ad operations specialist for Dr. Alexis at [facility]. He agree with the plan and does feel the patient go home patient strongly desires to go home. I think that some is may be deconditioning and atelectasis. He they increase his diuretic today which over the weekend he will continue to use the increased Lasix and potassium. Follow-up with his doctor for recheck on Wednesday. Return to ER over the weekend if: Worsening of symptoms, chest pain, shortness of breath, fever chills, any new problems concerns. The patient has somewhat happy with plan he was discharged home. Medication Reconcilliation Current Medication List: was personally reviewed by me Blood Pressure Screening Patient's blood pressure: Elevated blood pressure Blood pressure disposition: Referred to PCP Consults Time Called: 1708 Consulting Physician: Dr. Marti, Cardiothoracic Surgeon Returned Call: 1722 I discussed the patient's case with Dr. Marti, Cardiothoracic Surgeon. He agreed with the treatment plan. Impression Primary Impression: SOB (shortness of breath) Additional Impressions: Atelectasis S/P CABG (coronary artery bypass graft) Scribe Attestation The scribe's documentation has been prepared under my direction and personally reviewed by me in its entirety. I confirm that the note above accurately reflects all work, treatment, procedures, and medical decision making performed by me. Departure Information Dispostion Home / Self-Care Referrals Lori Ponce C.R.N.P (PCP) Forms HOME CARE DOCUMENTATION FORM, IMPORTANT VISIT INFORMATION Patient Instructions My [facility] Additional Instructions Rest. Keep your Lasix and potassium increased for the next 2 days over the weekend. REturn if: worsening of symptoms, shortness of breath worsens, chest pain, fever , any new problems or concerns Follow-up with your doctor on Wednesday for recheck Problem Qualifiers
--- NOTE | 2017-02-05 15:35 | DIAGNOSTIC IMAGING REPORT ---
CHEST ONE VIEW PORTABLE CLINICAL HISTORY: Atypical chest pain COMPARISON STUDY: 01/21/2017 FINDINGS: The heart is enlarged. There are postsurgical changes of a midline sternotomy. There is a retrocardiac opacity consistent with a hiatal hernia. Linear opacities at both lung bases are likely atelectatic. There is a small left pleural effusion.[ IMPRESSION: 1. Interval midline sternotomy 2. Cardiomegaly. No evidence of failure 3. Linear bibasilar opacities likely atelectatic 4. Hiatal hernia 5. Small left pleural effusion Electronically signed by: King Elizalde M.D. 02/05/2017 3:33 PM Dictated Date/Time: 02/05/2017 3:32 PM
[2017-02-05 15:39] LABS: BASO % 0.5 %; BASO ABS # 0.05 K/uL (0-0.2); COMPLETE YES; EOS % 5.2 %; HEMATOCRIT 31.8 % (42-52); LYMPH % 13.7 %; LYMPH ABS # 1.29 K/uL (1.2-3.4); MEAN CELL VOLUME 90.1 fL (80-100); MEAN CORPUSCULAR HEMOGLOBIN 28.9 pg (25-34); MEAN CORPUSCULAR HGB CONC 32.1 g/dl (32-36); MEAN PLATELET VOLUME 9.9 fL (7.4-10.4); MONO % 11.5 %; NEUT % 64.1 %; PLATELET COUNT 374 K/uL (130-400); RED BLOOD COUNT 3.53 M/uL (4.7-6.1); WHITE BLOOD COUNT 9.39 K/uL (4.8-10.8)
[2017-02-05] MEDS ORDERED: POTA20TA13 PO (15:42)
[2017-02-05] MEDS ORDERED: ASPI81TA28 PO (15:42)
[2017-02-05] MEDS ORDERED: ACET-1256 PO (15:42)
[2017-02-05] MEDS ORDERED: FURO-85 PO (15:42)
[2017-02-05] MEDS ORDERED: OMEP40CA41 PO (15:42)
[2017-02-05] MEDS ORDERED: SUCR1TAB PO (15:46)
[2017-02-05] MEDS ORDERED: NTRGSL/4 UT (15:46)
[2017-02-05] MEDS ORDERED: OXYC-609 PO (15:47)
[2017-02-05] MEDS ORDERED: SIMV40TA2 PO (15:47)
[2017-02-05 15:48] LABS: BUN/CREATININE RATIO 22.3 (10-20); CALCIUM 9.5 mg/dl (8.5-10.1); POTASSIUM 4.2 mmol/L (3.5-5.1)
[2017-02-05] MEDS ORDERED: TAMS0.4C38 PO (15:54)
[2017-02-05] MEDS ORDERED: OPTIRAY 320 IV PRN (16:15)
--- NOTE | 2017-02-05 16:52 | DIAGNOSTIC IMAGING REPORT ---
CT ANGIOGRAM OF THE CHEST CLINICAL HISTORY: Atypical chest pain and shortness of breath. COMPARISON STUDY: Chest x-ray dated 02/05/2017 TECHNIQUE: Following the IV administration of 120 mL of Optiray-320, CT angiogram of the thorax was performed from the thoracic inlet to the lung bases utilizing the pulmonary embolus protocol. Images are reviewed in the axial, sagittal, and coronal planes. IV contrast was administered without complication. MIP imaging was performed. A dose lowering technique was utilized adhering to the principles of ALARA. CT DOSE: 1567.66 mGy.cm FINDINGS: There are postsurgical changes of a midline sternotomy. There is infiltration of the fat posterior to the sternum, likely related to recent surgery. There is a tiny droplet of extrapleural air lateral to the sternum to the left of midline. There are coronary artery calcifications. There is no pathologic mediastinal or hilar lymphadenopathy. There is a 1 cm right axillary lymph node which is the upper limits of normal in size. There was no evidence of thoracic aortic dilatation. There were no pulmonary artery filling defects to indicate acute pulmonary embolism. There are small bilateral pleural effusions left greater than right. There are dependent airspace opacities which are felt to represent compressive atelectasis. There is a large hiatal hernia IMPRESSION: 1. No evidence of acute pulmonary embolism 2. Recent midline sternotomy. Increased soft tissue within the retrosternal anterior mediastinum is felt to be postsurgical. There is a small droplet of extrapleural air to the left of the sternum. While likely representing a normal postsurgical finding, mediastinitis cannot be excluded with certainty 3. Small bilateral pleural effusions left greater than right. 4. Large hiatal hernia 5. Dependent airspace opacities which are felt to be atelectatic Electronically signed by: King Elizalde M.D. 02/05/2017 4:51 PM Dictated Date/Time: 02/05/2017 4:44 PM
--- NOTE | 2017-02-05 16:55 | DIAGNOSTIC IMAGING REPORT ---
ABD/PELVIS IV CONTRAST ONLY CLINICAL HISTORY: 66 years-old Male presenting with eval for liver disease, shortness of breath, status post coronary bypass. TECHNIQUE: Multidetector CT of the abdomen and pelvis was performed after the administration of intravenous contrast. IV contrast: 120 mL of Optiray 320. A dose lowering technique was used consistent with the principles of ALARA (as low as reasonably achievable). COMPARISON: 04/02/2016. CT DOSE (mGy.cm): The estimated cumulative dose is 1567.66 inclusive of the CTA chest.. FINDINGS: Inventory Management Specialist topogram: Median sternotomy. Lung bases: Small left and trace right pleural effusions with associated dependent passive atelectasis. Multichamber enlargement of the heart with coronary artery and aortic valve calcification. Gas and fluid with associated infiltration in the substernal region consistent with post coronary bypass changes. No rim-enhancing fluid collection. Moderate hiatal hernia. Liver: Normal morphology. No liver lesion. Patent hepatic vasculature. Biliary: No intrahepatic or extrahepatic biliary ductal dilatation. Normal gallbladder. Pancreas: Mild parenchymal atrophy. Spleen: Normal. Adrenal glands: Normal. Kidneys and ureters: Exophytic hypodensity in the left kidney likely simple cyst. No hydronephrosis. Normal ureters. Bladder: Gas in the urinary bladder may relate to recent catheterization. Pelvic organs: Prostate enlargement likely secondary to benign prostatic hyperplasia. Bowel: Diverticulosis of the sigmoid colon normal appendix. No bowel obstruction. Moderate hiatal hernia. Peritoneal cavity: No free fluid or intraperitoneal gas. Vasculature: Atherosclerosis of the normal caliber abdominal aorta. IVC patent. Lymph nodes: Few small lymph nodes in the small bowel mesentery. No pathologically enlarged lymph nodes by CT size criteria. Abdominal wall: Normal. Musculoskeletal: Degenerative changes of the spine. IMPRESSION: 1. Postsurgical changes of coronary artery bypass with small left and trace right pleural effusions with associated massive atelectasis. 2. Cardiomegaly. 3. No acute intra-abdominal pathology. Specifically, allowing for the single phase examination, the liver is normal. Electronically signed by: Javed Rob M.D. 02/05/2017 4:54 PM Dictated Date/Time: 02/05/2017 4:48 PM
[2017-02-05 17:52] VITALS: BP 132/93; PULSE 70; O2SAT 96
[2017-02-05] MEDS ORDERED: ATEN50TA8 PO (20:02)
== END 2017-02-05 17:52 | disposition home or self-care (01) ==
LOC: C.EDB 14:23
DX: R06.02 Shortness of breath (principal); J98.11 Atelectasis; Z95.1 Presence of aortocoronary bypass graft; I10 Essential (primary) hypertension; I50.9 Heart failure, unspecified; I20.0 Unstable angina; Z87.442 Personal history of urinary calculi; Z87.891 Personal history of nicotine dependence; Z79.82 Long term (current) use of aspirin; Z79.899 Other long term (current) drug therapy; Z88.5 Allergy status to narcotic agent; Z83.3 Family history of diabetes mellitus; Z82.49 Family history of ischemic heart disease and other diseases of the circulatory system; Z81.8 Family history of other mental and behavioral disorders

== ENCOUNTER → 2017-08-17 | Outpatient (CLI) | payer OTHER ==
[~2017-08-17] MED LIST changes: +ACET-1256 PO; -ASPEC81 PO; +ASPI81TA28 PO; +ATEN50TA8 PO; +FURO-85 PO; +NTRGSL/4 UT; -NTRSLP4 SL; +OXYC-609 PO; +POTA20TA13 PO; +SIMV40TA2 PO; +SUCR1TAB PO; -SUCR1TAB29 PO; +TAMS0.4C38 PO
[2017-08-17 12:28] LABS: BASO % 1.4 %; EOS % 5.5 %; HEMATOCRIT 35.1 % (42-52); HEMOGLOBIN 10.9 g/dL (14.0-18.0); IG# 0.02 K/uL (0.00-0.02); LYMPH % 27.2 %; LYMPH ABS # 1.98 K/uL (1.2-3.4); MEAN CELL VOLUME 77.7 fL (80-100); MEAN CORPUSCULAR HEMOGLOBIN 24.1 pg (25-34); MEAN CORPUSCULAR HGB CONC 31.1 g/dl (32-36); MEAN PLATELET VOLUME 10.8 fL (7.4-10.4); NEUT % 54.6 %; NEUT ABS # 3.97 K/uL (1.4-6.5); PLATELET COUNT 298 K/uL (130-400); RED CELL DISTRIBUTION WIDTH CV 16.2 % (11.5-14.5); RED CELL DISTRIBUTION WIDTH SD 46.3 fL (36.4-46.3); WHITE BLOOD COUNT 7.27 K/uL (4.8-10.8)
[2017-08-17 13:16] LABS: BLOOD UREA NITROGEN 28 mg/dl (7-18); CARBON DIOXIDE 28 mmol/L (21-32); CREATININE 1.08 mg/dl (0.60-1.40); GLUCOSE 108 mg/dl (70-99); POTASSIUM 4.5 mmol/L (3.5-5.1); SODIUM 136 mmol/L (136-145)
== END | disposition home or self-care (01) ==
LOC: C.LABPVFM 09:06
PROVIDERS: ATTEND Internal Medicine Cardiovascular Disease
DX: R07.89 Other chest pain (principal); I25.10 Atherosclerotic heart disease of native coronary artery without angina pectoris; Z95.1 Presence of aortocoronary bypass graft

== ENCOUNTER 2017-09-05 15:35 | Inpatient (IN) | payer OTHER ==
[~2017-09-05] VITALS: Ht 175.3 cm; Wt 107.1 kg
--- NOTE | 2017-09-05 16:12 | EMERGENCY ROOM VISIT NOTE ---
History First contact with patient: 15:58 Chief Complaint: RESPIRATORY PROBLEMS Stated Complaint: SOB VERY BAD - DOUBLE HEART BY PASS IN SEPT History of Present Illness The patient is a 67 year old male who presents to the Emergency Room with complaints of worsening shortness of breath over the last several weeks. Patient states he is able to sit and lie flat without difficulty, but with any exertion he feels easily winded and out of breath. Patient states this is been slowly getting worse, and now more recently has intermittent pain in his left chest. Patient states these episodes are mild and resolve quickly once he rests. No other pain to his arms, back, neck or jaw. Patient denies any fevers , rhinorrhea, nasal congestion, sore throat. Denies any recent upper respiratory infection or cold. Denies any change in bowel movements including black or bloody stools, no trouble urinating. Patient denies any increase in weight or noticeable swelling in his legs. Patient states he has some mild chronic left ankle swelling due to a prior injury and subsequent surgery. Patient states there is been no recent changes to any of his medications and he is taking them daily as prescribed. Patient states he does not take a water pill daily. 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 Chavis and saw him as recently as the last few weeks. Patient states that his atenolol was recently increased. Pt had CABG done last January. Pt also states he has a sliding hiatal hernia and feels that contributes to occasional pain with eating. Source of History: patient Onset: several weeks ago Position: other (global) Timing: worsening Modifying Factors (Worsening): exertion Associated Symptoms: No fevers, No sorethroat, No neck pain, No back pain, No melena, No hematochezia, No urinary symptoms Review of Systems See HPI for pertinent positives & negatives. A total of 10 systems reviewed and were otherwise negative. Past Medical/Surgical History Medical Problems: (1) Acute CHF (2) Hyperplasia Of Prostate, Unspec, 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 & Oth Luts (3) Hypertension Nos (4) Inf Arthrit Nos-Ankle (5) Personal History Of Urinary Calculi (6) Unstable angina Surgical Problems: (1) Cataract Nos Family History Depression Diabetes mellitus Hypertension Social History Smoking Status: Former Smoker Drug Use: none Marital Status: Housing Status: lives with family Occupation Status: retired Current/Historical Medications Scheduled Aspirin (Aspirin Ec), 81 MG PO DAILY Atenolol (Tenormin), 50 MG PO QAM Sucralfate (Sucralfate), 1 GM PO ACHS Physical Exam Vital Signs Date Time Temp Pulse Resp B/P (MAP) Pulse Ox O2 Delivery O2 Flow Rate FiO2 09/05/17 18:08 74 93 09/05/17 16:43 52 18 161/94 97 Room Air 09/05/17 16:30 98 Room Air 09/05/17 16:29 52 18 164/95 96 Room Air 09/05/17 15:39 36.4 55 20 197/96 97 Room Air Physical Exam GENERAL: alert, well appearing, well nourished, no distress, non-toxic EYE EXAM: normal conjunctiva, PERRL and EOM's grossly intact OROPHARYNX: no exudate, no erythema, lips, buccal mucosa, and tongue normal and mucous membranes are moist NECK: supple, no nuchal rigidity, no adenopathy, non-tender LUNGS: Clear to auscultation. Normal chest wall mechanics, no w/r/r HEART: no murmurs, S1 normal and S2 normal ABDOMEN: abdomen soft, non-tender, normo-active bowel sounds, no masses, no rebound or guarding. BACK: Back is symmetrical on inspection and there is no deformity, no midline tenderness, no CVA tenderness. SKIN: no rashes and no bruising, no petechiae UPPER EXTREMITIES: upper extremities are grossly normal. Nml pulses, FROM. LOWER EXTREMITIES: Trace b/l LE edema. FROM, nml pulses. NEURO EXAM: Normal sensorium, cranial nerves II-XII grossly intact, normal speech, no gross weakness of arms, no gross weakness of legs. Gross sensation intact. Medical Decision & Procedures ER Provider Diagnostic Interpretation: Radiology results have been interpreted by the radiologist and reviewed by me. CHEST ONE VIEW PORTABLE CLINICAL HISTORY: 67 years-old Male presenting with sob with exertion. TECHNIQUE: Portable upright AP view of the chest was obtained. COMPARISON: 02/05/2017. FINDINGS: Median sternotomy wires and mediastinal surgical clips noted. Atherosclerosis of the aortic arch. Cardiac silhouette moderately enlarged. Mild pulmonary vascular prominence. No focal opacity. No large effusion or pneumothorax. Degenerative changes of the thoracic spine. Hiatal hernia suggested. IMPRESSION: 1. Cardiomegaly. No other convincing evidence of acute cardiopulmonary disease. Electronically signed by: Javed Rob M.D. 09/05/2017 4:45 PM Dictated Date/Time: 09/05/2017 4:44 PM Laboratory Results 09/05/17 16:20 Red Blood Count 4.14, Mean Corpuscular Volume 76.1, Mean Corpuscular Hemoglobin 23.7, Mean Corpuscular Hemoglobin Concent 31.1, Mean Platelet Volume 10.1, Neutrophils (%) (Auto) 51.2, Lymphocytes (%) (Auto) 27.1, Monocytes (%) (Auto) 12.9, Eosinophils (%) (Auto) 7.5, Basophils (%) (Auto) 1.1, Neutrophils # (Auto ) 2.85, Lymphocytes # (Auto) 1.51, Monocytes # (Auto) 0.72, Eosinophils # (Auto ) 0.42, Basophils # (Auto) 0.06 09/05/17 16:20 Test 09/05/17 16:20 White Blood Count 5.57 K/uL (4.8-10.8) Red Blood Count 4.14 M/uL (4.7-6.1) Hemoglobin 9.8 g/dL (14.0-18.0) Hematocrit 31.5 % (42-52) Mean Corpuscular Volume 76.1 fL (80-100) Mean Corpuscular Hemoglobin 23.7 pg (25-34) Mean Corpuscular Hemoglobin Concent 31.1 g/dl (32-36) Platelet Count 222 K/uL (130-400) Mean Platelet Volume 10.1 fL (7.4-10.4) Neutrophils (%) (Auto) 51.2 % Lymphocytes (%) (Auto) 27.1 % Monocytes (%) (Auto) 12.9 % Eosinophils (%) (Auto) 7.5 % Basophils (%) (Auto) 1.1 % Neutrophils # (Auto) 2.85 K/uL (1.4-6.5) Lymphocytes # (Auto) 1.51 K/uL (1.2-3.4) Monocytes # (Auto) 0.72 K/uL (0.11-0.59) Eosinophils # (Auto) 0.42 K/uL (0-0.5) Basophils # (Auto) 0.06 K/uL (0-0.2) RDW Standard Deviation 44.8 fL (36.4-46.3) RDW Coefficient of Variation 16.1 % (11.5-14.5) Immature Granulocyte % (Auto) 0.2 % Immature Granulocyte # (Auto) 0.01 K/uL (0.00-0.02) Prothrombin Time 10.6 SECONDS (9.0-12.0) Prothromb Time International Ratio 1.0 (0.9-1.1) Anion Gap 6.0 mmol/L (3-11) Est Creatinine Clear Calc Drug Dose 76.4 ml/min Estimated GFR () 76.2 Estimated GFR (Non- 65.7 BUN/Creatinine Ratio 27.2 (10-20) Calcium Level 9.6 mg/dl (8.5-10.1) Magnesium Level 2.2 mg/dl (1.8-2.4) Total Bilirubin 0.3 mg/dl (0.2-1) Aspartate Amino Transf (AST/SGOT) 86 U/L (15-37) Alanine Aminotransferase (ALT/SGPT) 91 U/L (12-78) Alkaline Phosphatase 92 U/L (45-117) Pro-B-Type Natriuretic Peptide 300 pg/ml (0-900) Total Protein 7.2 gm/dl (6.4-8.2) Albumin 3.9 gm/dl (3.4-5.0) Globulin 3.3 gm/dl (2.5-4.0) Albumin/Globulin Ratio 1.2 (0.9-2) Lipase 143 U/L (73-393) Laboratory results per my review. Medications Administered Medications (Trade) Dose Ordered Sig/Joseph Route Start Time Stop Time Status Last Admin Dose Admin Nitroglycerin (Nitroglycerin 2% Oint) 1 inch NOW ONCE EXT 09/05/17 16:15 09/05/17 16:16 DC 09/05/17 16:28 1 INCH Aspirin/Aluminum/ Magnesium/Ca Carb (Ascriptin Tab) 325 mg NOW STAT PO 09/05/17 19:19 09/05/17 19:52 DC 09/05/17 19:26 325 MG ECG Per My Interpretation Indication: SOB/dyspnea Rate (beats per minute): 52 Rhythm: sinus bradycardia (nml axis, nml QRS/QTc) Findings: no acute ischemic change ED Course 1609: The patient was evaluated in room B11A. A complete history and physical exam was performed. 1615: Ordered Nitroglycerin 1 inch EXT. 1730: Patient reexamined and updated on results. Patient's blood pressure markedly improved. Patient still with no symptoms at rest. 1800: Patient ambulated here with nursing staff. No significant hypoxia, however after approximately 15 steps patient reported left chest discomfort and slight shortness of breath. Patient did not have profoundly obvious increased work of breathing. Blood pressure only slightly elevated after this. 1844: Patient states felt slightly improved here. Upon removal of his nitroglycerin paste, his blood pressure did significantly elevated again. Medical Decision Differential diagnosis: Etiologies such as infections, reactive airway disease, pneumonia, pneumothorax , COPD, CHF, cardiac ischemia, pulmonary embolism, musculoskeletal, gastrointestinal, as well as others were entertained. Patient with prior history of coronary artery disease status post CABG. Patient with concerning story here of exertional symptoms. Patient's labs and imaging here reassuring, patient was not hypoxic or. In significant distress with ambulatory trial here. Patient was found to be hypertensive, this improved with nitroglycerin, and was worse again when the nitroglycerin was removed. Patient did not however have any symptoms at rest even with elevated blood pressure readings. No evidence of hypertensive emergency. I do not suspect acute vascular etiology. Discussed with cardiology my concerns given the patient's history despite well-appearing exam, labs and imaging. We agree the patient should be admitted and observed for possible unstable angina. This was discussed with patient at bedside and he verbalized understanding and was in agreement. Case was discussed with hospitalist for additional evaluation and treatment. No evidence of acute infectious etiology. I do not suspect PE. No exam findings to suggest acute congestive heart failure. I do not suspect COPD exacerbation. Of note patient was found to have a mildly lower H&H compared to 1 month ago. It is unclear if worsening anemia is contributing to his symptoms. Medication Reconcilliation Current Medication List: was personally reviewed by me Blood Pressure Screening Patient's blood pressure: Elevated blood pressure Blood pressure disposition: Referred to PCP Consults Time Called: 185 Consulting Physician: Dr. Gorman Returned Call: [phone] Gorman recommends admission for possible unstable angina. Additional Consults: Time Called: 192 Consulted Physician: [facility] hospitalist Returned Call: [phone] Additional Comments: Uma Jin returned call. Discussed case. Impression Primary Impression: TOMAS (dyspnea on exertion) Additional Impressions: Chest pain Hypertension Anemia Departure Information Dispostion Being Evaluated By Hospitalist Condition GOOD Referrals Lori Ponce C.R.NDevika (PCP) Patient Instructions My [facility] Problem Qualifiers Additional Impressions: Chest pain Chest pain type: unspecified Qualified Codes: R07.9 - Chest pain, unspecified Hypertension Hypertension type: essential hypertension Qualified Codes: I10 - Essential ( primary) hypertension Anemia Anemia type: unspecified type Qualified Codes: D64.9 - Anemia, unspecified
[2017-09-05] MEDS ORDERED: NITROGLYCERIN 2% OINTMENT 30GM TUBE EXT ONE (16:15)
[2017-09-05 16:38] LABS: BASO % 1.1 %; BASO ABS # 0.06 K/uL (0-0.2); EOS % 7.5 %; EOS ABS # 0.42 K/uL (0-0.5); HEMATOCRIT 31.5 % (42-52); HEMOGLOBIN 9.8 g/dL (14.0-18.0); IG# 0.01 K/uL (0.00-0.02); LYMPH % 27.1 %; LYMPH ABS # 1.51 K/uL (1.2-3.4); MEAN CELL VOLUME 76.1 fL (80-100); MEAN CORPUSCULAR HEMOGLOBIN 23.7 pg (25-34); MEAN CORPUSCULAR HGB CONC 31.1 g/dl (32-36); MEAN PLATELET VOLUME 10.1 fL (7.4-10.4); MONO % 12.9 %; MONO ABS # 0.72 K/uL (0.11-0.59); NEUT % 51.2 %; NEUT ABS # 2.85 K/uL (1.4-6.5); PLATELET COUNT 222 K/uL (130-400); RED CELL DISTRIBUTION WIDTH CV 16.1 % (11.5-14.5); RED CELL DISTRIBUTION WIDTH SD 44.8 fL (36.4-46.3); WHITE BLOOD COUNT 5.57 K/uL (4.8-10.8)
--- NOTE | 2017-09-05 16:46 | DIAGNOSTIC IMAGING REPORT ---
CHEST ONE VIEW PORTABLE CLINICAL HISTORY: 67 years-old Male presenting with sob with exertion. TECHNIQUE: Portable upright AP view of the chest was obtained. COMPARISON: 02/05/2017. FINDINGS: Median sternotomy wires and mediastinal surgical clips noted. Atherosclerosis of the aortic arch. Cardiac silhouette moderately enlarged. Mild pulmonary vascular prominence. No focal opacity. No large effusion or pneumothorax. Degenerative changes of the thoracic spine. Hiatal hernia suggested. IMPRESSION: 1. Cardiomegaly. No other convincing evidence of acute cardiopulmonary disease. Electronically signed by: Javed Rob M.D. 09/05/2017 4:45 PM Dictated Date/Time: 09/05/2017 4:44 PM
[2017-09-05 16:57] LABS: ALBUMIN 3.9 gm/dl (3.4-5.0); ALT/SGPT 91 U/L (12-78); AST/SGOT 86 U/L (15-37); BLOOD UREA NITROGEN 31 mg/dl (7-18); CALCIUM 9.6 mg/dl (8.5-10.1); CARBON DIOXIDE 25 mmol/L (21-32); CREATININE 1.14 mg/dl (0.60-1.40); GLUCOSE 124 mg/dl (70-99); LIPASE 143 U/L (73-393); POTASSIUM 3.9 mmol/L (3.5-5.1); SODIUM 139 mmol/L (136-145)
[2017-09-05 17:04] LABS: ALKALINE PHOSPHATASE 92 U/L (45-117); TOTAL PROTEIN 7.2 gm/dl (6.4-8.2)
[2017-09-05] MEDS ORDERED: ASPIRIN/ALUM/MAGNES/CAL CARB 325 MG TAB PO STA (19:19)
[2017-09-05] MEDS ORDERED: NITROGLYCERIN 0.4 MG SL PER TAB CHARGE SL PRN (19:45)
[2017-09-05] MEDS ORDERED: ZOLPIDEM TARTRATE 5 MG TAB PO PRN (19:45)
[2017-09-05] MEDS ORDERED: POLYETHYLENE (MIRALAX) 17 GM PACK PO PRN (19:45)
[2017-09-05] MEDS ORDERED: MAGNESIUM HYDROXIDE SUSP 30 ML UDC PO PRN (19:45)
[2017-09-05] MEDS ORDERED: ACETAMINOPHEN 325 MG TAB PO PRN (19:45)
[2017-09-05] MEDS ORDERED: ALUMINUM/MAGNESIUM/SIMETH (MAALOX MAX) 30 ML UDC PO PRN (19:45)
[2017-09-05] MEDS ORDERED: ONDANSETRON INJ 2 MG/ML 2 ML VIAL IV PRN (19:45)
[2017-09-05] MEDS ORDERED: IV FLUIDS COMPLETED PRN (20:45)
[2017-09-05] MEDS ORDERED: FUROSEMIDE INJ 20 MG in SYRINGE 0 ML IV ONE (21:00)
--- NOTE | 2017-09-05 21:03 | History and Physical ---
History & Physical Date & Time of Service: Sep 05, 2017 at 20:34 Chief Complaint: Sob Very Bad - Double Heart By Pass In Sept Primary Care Physician: Lori Ponce C.R.N.P History of Present Illness Source: patient 67 y/o M Hx HTN, HPL, hiatal hernia, renal calculi, CAD - CABG 02/07. The pt presents with progressive exertional dyspnea. He states that this has been present for a few months and that he currently is having difficulty with minimal exertion such as walking across a room. He denies any CP, a cough or fevers. Initial labs are notable for anemia. His hemoglobin has decreased from 14 to 9.8 over the past 7 months. He denies any noticeable blood in his stool and denies any dark colored stool. Past Medical/Surgical History 1) HTN 2) HPL 3) CAD - CABG 02/07 4) Hiatal hernia - under evaluation for surgery 5) Obese 6) Nephrolithiasis 7) BPH Family History Depression Diabetes mellitus Hypertension Social History Smoking Status: Former Smoker Drug Use: none Marital Status: Housing status: lives with family Occupational Status: retired Immunizations History of Influenza Vaccine: Unknown History of Tetanus Vaccine?: Unknown History of Pneumococcal: Unknown History of Hepatitis B Vaccine: Unknown Allergies Coded Allergies: Morphine (Verified Adverse Reaction, Unknown, GI upset, 09/05/17) Home Medications Scheduled Aspirin (Aspirin Ec), 81 MG PO DAILY Atenolol (Tenormin), 50 MG PO QAM Sucralfate (Sucralfate), 1 GM PO ACHS Review of Systems Constitutional: No fever, No chills Eyes: No worsening of vision ENT: No hearing loss Respiratory: + dyspnea on exertion, No cough, No sputum, No wheezing Cardiovascular: No chest pain, No orthopnea, No PND Abdomen: No pain, No nausea Musculoskeletal: No joint pain Genitourinary - Male: No hematuria Neurologic: No memory loss, No paralysis, No weakness Psychiatric: No depression symptoms Endocrine: No fatigue Hematologic / Lymphatic: No abnormal bleeding/bruising Integumentary: No rash Allergic / Immunologic: No environmental allergies Physical Exam Vital Signs Date Time Temp Pulse Resp B/P (MAP) Pulse Ox O2 Delivery O2 Flow Rate FiO2 09/05/17 20:20 74 18 161/94 93 09/05/17 18:08 74 93 09/05/17 16:43 52 18 161/94 97 Room Air 09/05/17 16:30 98 Room Air 09/05/17 16:29 52 18 164/95 96 Room Air 09/05/17 15:39 36.4 55 20 197/96 97 Room Air General Appearance: WD/WN, no apparent distress, + pertinent finding (Obese, middle aged malle - no distress) Head: normocephalic Eyes: normal inspection ENT: normal ENT inspection, pharynx normal Respiratory/Chest: chest non-tender, lungs clear Cardiovascular: regular rate, rhythm, no edema, no gallop Abdomen/GI: normal bowel sounds, non tender, soft Back: normal inspection, no CVA tenderness Extremities/Musculoskelatal: normal inspection, no calf tenderness, normal capillary refill Neurologic/Psych: scratcher tender II-XII nml as tested, no motor/sensory deficits, alert, oriented x 3 Skin: normal color Diagnostics Laboratory Results Results Past 24 Hours Test 09/05/17 16:20 Range/Units White Blood Count 5.57 4.8-10.8 K/uL Red Blood Count 4.14 4.7-6.1 M/uL Hemoglobin 9.8 14.0-18.0 g/dL Hematocrit 31.5 42-52 % Mean Corpuscular Volume 76.1 80-100 fL Mean Corpuscular Hemoglobin 23.7 25-34 pg Mean Corpuscular Hemoglobin Concent 31.1 32-36 g/dl Platelet Count 222 130-400 K/uL Mean Platelet Volume 10.1 7.4-10.4 fL Neutrophils (%) (Auto) 51.2 % Lymphocytes (%) (Auto) 27.1 % Monocytes (%) (Auto) 12.9 % Eosinophils (%) (Auto) 7.5 % Basophils (%) (Auto) 1.1 % Neutrophils # (Auto) 2.85 1.4-6.5 K/uL Lymphocytes # (Auto) 1.51 1.2-3.4 K/uL Monocytes # (Auto) 0.72 0.11-0.59 K/uL Eosinophils # (Auto) 0.42 0-0.5 K/uL Basophils # (Auto) 0.06 0-0.2 K/uL RDW Standard Deviation 44.8 36.4-46.3 fL RDW Coefficient of Variation 16.1 11.5-14.5 % Immature Granulocyte % (Auto) 0.2 % Immature Granulocyte # (Auto) 0.01 0.00-0.02 K/uL Prothrombin Time 10.6 9.0-12.0 SECONDS Prothromb Time International Ratio 1.0 0.9-1.1 Sodium Level 139 136-145 mmol/L Potassium Level 3.9 3.5-5.1 mmol/L Chloride Level 108 98-107 mmol/L Carbon Dioxide Level 25 21-32 mmol/L Anion Gap 6.0 3-11 mmol/L Blood Urea Nitrogen 31 7-18 mg/dl Creatinine 1.14 0.60-1.40 mg/dl Est Creatinine Clear Calc Drug Dose 76.4 ml/min Estimated GFR () 76.2 Estimated GFR (Non- 65.7 BUN/Creatinine Ratio 27.2 10-20 Random Glucose 124 70-99 mg/dl Calcium Level 9.6 8.5-10.1 mg/dl Magnesium Level 2.2 1.8-2.4 mg/dl Total Bilirubin 0.3 0.2-1 mg/dl Aspartate Amino Transf (AST/SGOT) 86 15-37 U/L Alanine Aminotransferase (ALT/SGPT) 91 12-78 U/L Alkaline Phosphatase 92 45-117 U/L Troponin I < 0.015 0-0.045 ng/ml Pro-B-Type Natriuretic Peptide 300 0-900 pg/ml Total Protein 7.2 6.4-8.2 gm/dl Albumin 3.9 3.4-5.0 gm/dl Globulin 3.3 2.5-4.0 gm/dl Albumin/Globulin Ratio 1.2 0.9-2 Lipase 143 73-393 U/L Impression Assessment and Plan 67 y/o M Hx HTN, HPL, hiatal hernia, renal calculi, CAD - CABG 02/07. The pt presents with progressive exertional dyspnea. He states that this has been present for a few months and that he currently is having difficulty with minimal exertion such as walking across a room. He denies any CP, a cough or fevers. Initial labs are notable for anemia. His hemoglobin has decreased from 14 to 9.8 over the past 7 months. He denies any noticeable blood in his stool and denies any dark colored stool. 1) Progressive exertional dyspnea - there is no evidence of acute ischemia so that this may be the result of progressive anemia. Despite a Hb of 9.8, it makes sense to transfuse this pt for both diagnostic and therapeutic purposes. Should he respond to the transfusion following an increase in his Hb, we could then be fairly certain this was not a cardiac issue. He will receive 2 units overnight with IV Lasix. We would choose to pursue a more extensive cardiac work-up - possibly echo or stress testing - if he does not respond to the transfusions. 2) Anemia - we will guiac all stool and consult GI - BID Protonix is provided and Hb will be trended although this is likely a slow process. 3) CAD - current trop and EKG do not support ischemia - the pt is assigned to telemetry and trop will be trended - ASA is presently held due to suspicion of blood loss. He did receive 325mg in the ER on arrival. Presumably he is Statin -intolerant - we can address his MD regarding this prior to DC as he cannot confirm. . 4) HTN - cont Atenolol Full code - SCDs Total time for this admit including review of labs, meds, imaging, records - discussion with pt and ER attending - 38 min Resuscitation Status VTE Prophylaxis Will order VTE Prophylaxis: Yes
[2017-09-05 21:18] VITALS: BP 157/93; PULSE 56; TEMP 36.5; O2SAT 99; Ht 175.3 cm; Wt 107.1 kg
[2017-09-05 22:25] VITALS: BP 139/86; PULSE 53; TEMP 36.6; O2SAT 97
[2017-09-05 22:41] VITALS: BP 141/85; PULSE 53; TEMP 36.5; O2SAT 97
[2017-09-05] MEDS: SUCRALFATE 1 GM TAB PO SCH (22:56)
[2017-09-05] MEDS: PANTOprazole INJ 40 MG in SYRINGE 0 ML IV SCH (22:57)
[2017-09-05 23:00] VITALS: BP 143/79; PULSE 54; TEMP 36.7; O2SAT 97
[2017-09-06] VITALS (15 sets, daily range): BP systolic 113–169; BP diastolic 64–99; PULSE 51–57; TEMP 36.1–36.9; O2SAT 94–98
[2017-09-06] MEDS: SUCRALFATE 1 GM TAB PO SCH ×4 (07:34→21:24)
[2017-09-06] MEDS ORDERED: ASPIRIN 81 MG ECTAB PO SCH (09:00)
--- NOTE | 2017-09-06 09:39 | Gastrointestinal Consultation ---
Gastrointestinal Consultation Date of Consultation: Sep 06, 2017 Attending Physician: Dr. Garcia Consulting Physician: Dr. Parekh/SOILA Leiva Reason for Consultation: Symptomatic anemia History of Present Illness Patient is a 67 year old male with a history of hiatus hernia, HTN, and CAD s/p CABG 02/07 admitted with progressive shortness of breath prior to arrival. The patient denies any chest pain or palpitations but states he does get substernal chest discomfort and epigastric pain with meals. No nausea or vomiting. Denies any constipation, diarrhea or overt GIB. Laboratory testing on arrival demonstrated a microcytic anemia as follows: hemoglobin 9.8, hematocrit 31.5, MCV 76.1 and MCH 23.7. He has been made NPO by the primary team and initiated on Protonix 40 mg IV BID. He offers no other GI complaints. Patient states he is in the process of being scheduled with Dr. Casas as an outpatient for possible hiatus hernia repair. 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 Hypertension 2. Hyperlipidemia 3. Coronary artery disease 4. Hiatus hernia 5. Nephrolithiasis 6. BPH Past Surgical History: 1. CABG 2. EGD 08/18/16 with findings of large hiatus hernia 3. Colonoscopy 09/11/10 with findings only of diverticulosis Family History Depression Diabetes mellitus Hypertension Negative for GI malignancy or IBD Social History Smoking Status: Former Smoker Drug Use: none Marital Status: Housing Status: lives with family Occupation Status: retired Allergies Coded Allergies: Morphine (Verified Adverse Reaction, Unknown, GI upset, 09/05/17) Current Medications Home Meds and Scripts Medications Dose Route/Sig Max Daily Dose Days Date Category Sucralfate 1 Gm Tab 1 Gm PO ACHS 02/05/17 Reported Aspirin Ec (Aspirin) 81 Mg Tab 81 Mg PO DAILY 02/05/17 Reported Tenormin (Atenolol) 50 Mg Tab 50 Mg PO QAM 04/08/16 Reported Review of Systems Constitutional: + fatigue, No fever, No chills Eyes: No problem reported ENT: No trouble swallowing, No pain on swallowing Respiratory: + see HPI Cardiac: + see HPI Abdomen: + see HPI Musculoskeletal: No problem reported Male : No problem reported Neuro: No problem reported Psych: No problem reported Skin: No problem reported Physical Exam Date Time Temp Pulse Resp B/P (MAP) Pulse Ox O2 Delivery O2 Flow Rate FiO2 09/06/17 07:30 36.7 54 16 138/88 (105) 96 Room Air 09/06/17 04:00 Room Air 09/06/17 03:43 36.7 54 18 147/88 95 09/06/17 03:15 36.7 54 18 151/94 (113) 96 Room Air 09/06/17 02:12 36.4 52 18 134/83 95 09/06/17 01:42 36.9 53 18 134/70 94 09/06/17 01:06 36.4 56 18 113/71 96 09/06/17 00:11 36.8 56 18 148/83 96 09/05/17 23:59 Room Air 09/05/17 23:00 36.7 54 17 143/79 (100) 97 Room Air 09/05/17 22:41 36.5 53 20 141/85 97 09/05/17 22:25 36.6 53 18 139/86 97 09/05/17 21:18 36.5 56 18 157/93 99 Room Air 09/05/17 20:20 74 18 161/94 93 09/05/17 18:08 74 93 09/05/17 16:43 52 18 161/94 97 Room Air 09/05/17 16:30 98 Room Air 09/05/17 16:29 52 18 164/95 96 Room Air 09/05/17 15:39 36.4 55 20 197/96 97 Room Air General Appearance: WD/WN, no apparent distress Eyes: EOMI ENT: hearing grossly normal Neck: supple Respiratory/Chest: lungs clear, normal breath sounds, no respiratory distress Cardiovascular: regular rate, rhythm, no gallop, no murmur Abdomen: normal bowel sounds, non tender, soft Extremities: no pedal edema Neurologic/Psych: alert, normal mood/affect, oriented x 3 Skin: warm/dry Laboratory Results Last 24 Hours Test 09/05/17 16:20 09/05/17 23:09 09/06/17 01:45 09/06/17 04:51 White Blood Count 5.57 K/uL Red Blood Count 4.14 M/uL Hemoglobin 9.8 g/dL 11.2 g/dL Hematocrit 31.5 % Mean Corpuscular Volume 76.1 fL Mean Corpuscular Hemoglobin 23.7 pg Mean Corpuscular Hemoglobin Concent 31.1 g/dl Platelet Count 222 K/uL Mean Platelet Volume 10.1 fL Neutrophils (%) (Auto) 51.2 % Lymphocytes (%) (Auto) 27.1 % Monocytes (%) (Auto) 12.9 % Eosinophils (%) (Auto) 7.5 % Basophils (%) (Auto) 1.1 % Neutrophils # (Auto) 2.85 K/uL Lymphocytes # (Auto) 1.51 K/uL Monocytes # (Auto) 0.72 K/uL Eosinophils # (Auto) 0.42 K/uL Basophils # (Auto) 0.06 K/uL RDW Standard Deviation 44.8 fL RDW Coefficient of Variation 16.1 % Immature Granulocyte % (Auto) 0.2 % Immature Granulocyte # (Auto) 0.01 K/uL Prothrombin Time 10.6 SECONDS Prothromb Time International Ratio 1.0 Sodium Level 139 mmol/L Potassium Level 3.9 mmol/L Chloride Level 108 mmol/L Carbon Dioxide Level 25 mmol/L Anion Gap 6.0 mmol/L Blood Urea Nitrogen 31 mg/dl Creatinine 1.14 mg/dl Est Creatinine Clear Calc Drug Dose 76.4 ml/min Estimated GFR () 76.2 Estimated GFR (Non- 65.7 BUN/Creatinine Ratio 27.2 Random Glucose 124 mg/dl Calcium Level 9.6 mg/dl Magnesium Level 2.2 mg/dl Total Bilirubin 0.3 mg/dl Aspartate Amino Transf (AST/SGOT) 86 U/L Alanine Aminotransferase (ALT/SGPT) 91 U/L Alkaline Phosphatase 92 U/L Troponin I < 0.015 ng/ml < 0.015 ng/ml < 0.015 ng/ml Pro-B-Type Natriuretic Peptide 300 pg/ml Total Protein 7.2 gm/dl Albumin 3.9 gm/dl Globulin 3.3 gm/dl Albumin/Globulin Ratio 1.2 Lipase 143 U/L Urine Color YELLOW Urine Appearance CLEAR Urine pH 5.0 Urine Specific [place] 1.019 Urine Protein NEG Urine Glucose (UA) NEG Urine Ketones NEG Urine Occult Blood NEG Urine Nitrite NEG Urine Bilirubin NEG Urine Urobilinogen NEG Urine Leukocyte Esterase NEG Impression Patient is a 67 year old male admitted with symptomatic anemia, substernal chest pain and known large hiatus hernia. Plan 1. Keep NPO for now. 2. EGD for further evaluation of symptoms. Due to large hiatus hernia, possible Dirk's erosions. 3. Continue Pantoprazole 40 mg IV BID. 4. If no findings on EGD to explain the anemia, could consider outpatient colonoscopy. 5. Follow up as an outpatient with Dr. Casas as planned. 6. Supportive care per primary team. Additional recommendations pending results of testing. Thank you for allowing us to participate in the care of this pleasant patient. If you have any questions or concerns, please do not hesitate to contact us. Agree with SOILA Leiva as above Abd: Soft, NT, ND, +BS EGD cancelled today secondary to continued cardiac workup Will keep NPO overnight Consider EGD in AM
[2017-09-06] MEDS: PANTOprazole INJ 40 MG in SYRINGE 0 ML IV SCH ×2 (12:23→21:24)
--- NOTE | 2017-09-06 17:04 | CARDIOLOGY CONSULTATION ---
DATE OF CONSULTATION: 09/06/2017 TIME: 1617 p.m. CONSULTING PHYSICIAN: Dr. Stover REASON FOR CONSULTATION: Dyspnea with exertion. PRIMARY HOME THERAPY CLINICIAN: Dr. Chavis HISTORY OF PRESENT ILLNESS: Mr. Bentley is a pleasant 67-year-old gentleman with a history significant for CAD, status post CABG in 2016, hypertension, dyslipidemia, and hiatal hernia who presented to [facility] with dyspnea with exertion. For the past 3 weeks, he has noted dyspnea with exertion. Prior to that he could walk up a flight of stairs and do activities around his home such as yard work without any symptoms of chest pain or shortness of breath. For the past 3 weeks, he has noted progressively worsening dyspnea with exertion. He states that his symptoms are currently so severe that he can even do light walking such as walking 10-15 feet in his hospital room without experiencing dyspnea. Symptoms resolve within approximately 1 minute of rest. He felt similar following his CABG in January 2017 approximately 2 weeks postop and since that time, his dyspnea has resolved. In the past, his angina consisted of jaw pain and "heartburn" type symptoms. He has also been experiencing bilateral chest discomfort for the past 3 months that does not change with exertion. It has been a constant discomfort across bilateral chest. He has also noted decreased energy levels for the past 4 months. He denies orthopnea, shortness of breath at rest, PND, syncope, near syncope, or palpitations. He denies edema. In the Emergency Department, he was given nitroglycerin and he stated that 30 minutes later he tried walking and felt better, but since then he continues to feel dyspneic with exertion. He was also noted to be anemic with a hemoglobin of 9.8. His hemoglobin was 10.9 on 08/17/2017 and actually 14.1 on 01/22/2017 prior to his CABG. There has not been any reported melena, hematochezia, hematuria, or other bleeding. He was given 2 units of packed red blood cells upon presentation with no improvement of his symptoms. REVIEW OF SYSTEMS: As above. Review of systems is otherwise negative/unremarkable. He denies leg pain or any recent travel as well as trauma. PAST MEDICAL HISTORY: 1. CAD, status post CABG x2 in January 2017 consisting of MCGOVERN to LAD and SVG to diagonal. 2. Hypertension. 3. Dyslipidemia. 4. Hiatal hernia. 5. Nephrolithiasis. 6. BPH. 7. Ankle fracture requiring surgery. 8. Cataract surgery. 9. GERD. 10. Sleep apnea. HOME MEDICATIONS: Include aspirin 81 mg daily, atenolol 75 mg daily. INPATIENT MEDICATIONS: Include atenolol 50 mg daily, Lasix 20 mg IV x1, Protonix 40 mg IV b.i.d., Carafate 1 g with meals and at bedtime. ALLERGIES: LISTED MORPHINE. SOCIAL HISTORY: Quit smoking in his 20s after smoking less than 5 years. Rare alcohol. Lives at home with his . He has 2 sons, Aram and Nawaf. 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 He is unaccompanied in his hospital room. FAMILY HISTORY: Father , possibly from pneumonia. Older brother with lung cancer. Two sisters with breast cancer. PHYSICAL EXAMINATION: VITAL SIGNS: Temperature 36.6 degrees, heart rate 51 beats per minute, respiration rate 20, blood pressure 139/97 mmHg, oxygen saturation 96% on room air. GENERAL: In no acute distress. He is alert and oriented. HEENT: Anicteric sclerae. NECK: No appreciable JVD. No hepatojugular reflux. Normal carotid upstrokes bilaterally. No carotid bruit. CARDIAC EXAMINATION: PMI was nonpalpable. There is no ventricular heave. Regular, normal S1, S2, 1/6 early peaking systolic ejection murmur best heard at the right upper sternal border. No rubs or gallops. LUNGS: Clear to auscultation bilaterally without wheezes, rales, or rhonchi. ABDOMEN: Soft, nontender, nondistended. Normoactive bowel sounds. No bruits noted. EXTREMITIES: No cyanosis or edema. 2+ radial pulses bilaterally. 2+ dorsalis pedis pulses bilaterally. No palpable cords. PSYCHIATRIC: Affect appears appropriate. LABORATORY DATA: White blood cell count is 5.57, hemoglobin 9.8 and then up to 11.2 following transfusion, platelets 222. Sodium 139, potassium 3.9, BUN 31, creatinine 1.14. Troponin negative x3. ProBNP 300. Albumin 3.9, AST 86, ALT 91. Magnesium 2.2. INR is 1. Chest x-ray, no obvious infiltrate. Chest x-ray image personally reviewed. No significant pleural effusion. Sternotomy wires noted. A dobutamine stress echo on 01/22/2017 reported as negative for ischemia. Normal LV systolic function. Telemetry personally reviewed. No arrhythmia. ECG on 09/05/2017, sinus bradycardia at 52 beats per minute. ASSESSMENT AND PLAN: 1. Dyspnea with exertion: Etiology uncertain. He does not appear to be hypervolemic. ProBNP is unremarkable. Chest x-ray without concern for CHF. Recommend echocardiogram. Recommend myocardial perfusion study. Consider other etiologies as well. Could consider pulmonary embolism as etiology as well. This was discussed with Dr. Stover of the primary hospitalist service and further evaluation for this deferred to Dr. Stover as per discussion. 2. Chest pain: Atypical. It has been constant for 3 months. Negative cardiac enzymes would suggest that this is not secondary to ischemic heart disease. Consider other etiology as noted above. 3. Coronary artery disease, status post CABG x2: Continue antiplatelet therapy if no contraindications, however, GI has evaluated him with the anemia and is considering EGD. Consider high-intensity statin therapy if no contraindications, however, transaminase levels are currently elevated. This can be further discussed in the future with his primary cashier tube room, Dr. Chavis. Continue beta-shannan. 4. Hypertension: Blood pressure is acceptable. He has had intermittent hypertension. Continue outpatient regimen. 5. Anemia: As per GI and primary service. 6. Disposition: Dr. Chavis will resume his cardiology care tomorrow. Greater than 40 minutes time spent with greater than 50% of the time spent counseling patient and coordinating care. MTDD
--- NOTE | 2017-09-06 20:15 | Progress Note ---
Subjective Date of Service: Sep 06, 2017. Subjective Pt evaluation today including: conversation w/ patient, physical exam, chart review, lab review, conversation w/ as400 consultant (cardiology), review of inpatient medication list Pain: no chest pain at rest or w/ exertion PO Intake: NPO Voiding: no voiding problems tele with sinus amparo nearly all the time since admission despite 2 units of PRBCs he still had dyspnea on exertion this AM after walking to the toilet he distinctly remembers having relief of his dyspnea yesterday when the ER applied nitropaste he denies any recent cough, congestion, pnd, orthopnea, travel out of the area, prolonged immobilization no peripheral edema either Problem List Medical Problems: (1) Atelectasis Status: Acute (2) Chest pain Status: Acute (3) TOMAS (dyspnea on exertion) Status: Acute (4) Epigastric abdominal pain Status: Acute (5) Hiatal hernia Status: Acute (6) Hyperplasia Of Prostate, Unspec, 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: Chronic (7) Hypertension Status: Acute (8) Hypertension Nos Status: Chronic (9) SOB (shortness of breath) Status: Acute (10) Substernal chest pain Status: Acute Review of Systems Constitutional: No fever Respiratory: + dyspnea on exertion, No cough, No sputum, No wheezing, No shortness of breath, No dyspnea at rest, No hemoptysis Cardiac: No chest pain, No orthopnea, No PND, No edema, No claudication Abdomen: No pain, No nausea, No vomiting, No GI bleeding (nothing overt) Objective Vital Signs Date Time Temp Pulse Resp B/P (MAP) Pulse Ox O2 Delivery O2 Flow Rate FiO2 09/06/17 16:14 36.6 51 20 139/97 (111) 96 Room Air 09/06/17 16:00 96 Room Air 09/06/17 12:00 96 Room Air 09/06/17 11:24 36.1 52 16 158/94 (115) 98 Room Air 09/06/17 08:00 96 Room Air 09/06/17 07:30 36.7 54 16 138/88 (105) 96 Room Air 09/06/17 04:00 Room Air 09/06/17 03:43 36.7 54 18 147/88 95 09/06/17 03:15 36.7 54 18 151/94 (113) 96 Room Air 09/06/17 02:12 36.4 52 18 134/83 95 09/06/17 01:42 36.9 53 18 134/70 94 09/06/17 01:06 36.4 56 18 113/71 96 09/06/17 00:11 36.8 56 18 148/83 96 09/05/17 23:59 Room Air 09/05/17 23:00 36.7 54 17 143/79 (100) 97 Room Air 09/05/17 22:41 36.5 53 20 141/85 97 09/05/17 22:25 36.6 53 18 139/86 97 09/05/17 21:18 36.5 56 18 157/93 99 Room Air 09/05/17 20:20 74 18 161/94 93 Physical Exam General Appearance: no apparent distress ENT: pharynx normal Neck: no JVD Respiratory/Chest: lungs clear, no respiratory distress, no accessory muscle use Cardiovascular: no gallop, no murmur, + bradycardia Abdomen: normal bowel sounds, non tender, soft, no organomegaly Extremities: no pedal edema Neurologic/Psychiatric: alert, oriented x 3 Laboratory Results Last 24 Hours Test 09/05/17 23:09 09/06/17 01:45 09/06/17 04:51 Troponin I < 0.015 ng/ml < 0.015 ng/ml Urine Color YELLOW Urine Appearance CLEAR Urine pH 5.0 Urine Specific [place] 1.019 Urine Protein NEG Urine Glucose (UA) NEG Urine Ketones NEG Urine Occult Blood NEG Urine Nitrite NEG Urine Bilirubin NEG Urine Urobilinogen NEG Urine Leukocyte Esterase NEG Hemoglobin 11.2 g/dL Assessment and Plan 67yo male - 1. progressive dyspnea on exertion - despite transfusion of 2 units of PRBCs he has no improvement in his dyspnea. In fact he had dyspnea this AM just with walking in his room. Thus far his ischemic w/u is negative (troponins, EKGs, etc normal). I spoke with Dr. Solano who saw him in consult. Plan - echo, nuclear stress test in AM. If cardiac w/u is negative and he continues with symptoms consider CTA to r/o PE. I don't know if his bradycardia from the atenolol could be contributing to any of his symptoms. Reasonable to cut back the beta shannan to 25mg daily. 2. known CAD s/p CABG fall of 2017 - see discussion above. Asa on hold due to microcytic anemia. Remains on beta shannan. Uncertain why he is not on statin agent (due to abnormal ast/alt?). 3. microcytic anemia - s/p 2 units PRBCs overnight. Prior to his CABG his Hb was 14. Post-CABG it fell into the 10's. GI has been consult, and when safe from cardiac standpoint, EGD has been recommended. Remains on IV PPI in meantime. CBC in am for stability. Check iron studies, b12, folate in am. 4. bradycardia - likely from his beta shannan. Cut dose from 50mg to 25mg. TSH in late July 2017 was wnl. 5. HTN - acceptable control at this time. 6. abnormal AST, ALT - these have been high for some time. Prior abdominal u/ s showed fatty liver and thus could be 2nd to such. Check the transaminases in AM for stability. 7. DVT proph - SCDs only at this time due to #3. 8. hiatal hernia - surgery w/ Dr. Casas has been considered for the near future. In my clinical judgment this beneficiary meets acute admission criteria, established by CMS, that includes being hospitalized through two midnights. Will change to full admission status. NPO after MN. Continued [facility] stay due to: other (ongoing TOMAS) Discharge planning: home
[2017-09-07] VITALS (9 sets, daily range): BP systolic 123–160; BP diastolic 72–99; PULSE 49–58; TEMP 36.3–36.8; O2SAT 95–97
[2017-09-07 06:09] LABS: HEMATOCRIT 35.1 % (42-52); HEMOGLOBIN 11.3 g/dL (14.0-18.0); MEAN CELL VOLUME 76.8 fL (80-100); MEAN CORPUSCULAR HEMOGLOBIN 24.7 pg (25-34); MEAN CORPUSCULAR HGB CONC 32.2 g/dl (32-36); MEAN PLATELET VOLUME 10.2 fL (7.4-10.4); PLATELET COUNT 203 K/uL (130-400); RED CELL DISTRIBUTION WIDTH CV 16.3 % (11.5-14.5); RED CELL DISTRIBUTION WIDTH SD 45.3 fL (36.4-46.3); WHITE BLOOD COUNT 5.19 K/uL (4.8-10.8)
[2017-09-07 06:39] LABS: CALCIUM 8.8 mg/dl (8.5-10.1); CREATININE 1.01 mg/dl (0.60-1.40); POTASSIUM 3.6 mmol/L (3.5-5.1)
[2017-09-07] MEDS: SUCRALFATE 1 GM TAB PO SCH ×5 (07:00→19:59)
[2017-09-07] MEDS ORDERED: REGADENOSON 0.4 MG/5 ML SYR ONE (08:20)
--- NOTE | 2017-09-07 12:25 | Gastroenterology Progress Note ---
Progress Note Date of Service: Sep 07, 2017 Subjective Pt evaluation today including: conversation w/ patient, physical exam, chart review, review of studies, review of inpatient medication list Patient is currently without any GI complaints. EGD has been deferred temporarily as he continues cardiac work up. Continues Protonix 40 mg BID. H&H remains stable over the past 24 hours. Review of Systems Constitutional: No problem reported Abdomen: + see HPI Medications Current Inpatient Medications Medications (Trade) Dose Ordered Sig/Joseph Route Start Time Stop Time Status Last Admin Dose Admin Acetaminophen (Tylenol Tab) 650 mg Q4H PRN PO 09/05/17 19:45 10/05/17 19:44 Al Hydrox/Mg Hydrox/Simethicone (Maalox Max Susp) 15 ml Q4H PRN PO 09/05/17 19:45 10/05/17 19:44 Magnesium Hydroxide (Milk Of Magnesia Susp) 30 ml Q12H PRN PO 09/05/17 19:45 10/05/17 19:44 Zolpidem Tartrate (Ambien Tab) 5 mg HSZ PRN PO 09/05/17 19:45 10/05/17 19:44 Ondansetron HCl (Zofran Inj) 4 mg Q6H PRN IV 09/05/17 19:45 10/05/17 19:44 Nitroglycerin (Nitrostat Tab) 0.4 mg UD PRN SL 09/05/17 19:45 10/05/17 19:44 Polyethylene (Miralax Powder Packet) 17 gm DAILY PRN PO 09/05/17 19:45 10/05/17 19:44 Sucralfate (Carafate Tab) 1 gm ACHS PO 09/05/17 21:00 10/05/17 20:59 09/06/17 21:24 1 GM Pantoprazole Sodium 40 mg/ Syringe 10 ml @ 5 mls/min DAILY@ IV 09/05/17 23:00 10/05/17 22:59 09/06/17 21:24 5 MLS/MIN Miscellaneous (Iv Fluids Completed) 1 ea PRN PRN N/A 09/05/17 20:45 09/05/18 20:44 Atenolol (Tenormin Tab) 25 mg QAM PO 09/07/17 09:00 10/06/17 08:59 09/07/17 07:49 25 MG Objective Vital Signs Date Time Temp Pulse Resp B/P (MAP) Pulse Ox O2 Delivery O2 Flow Rate FiO2 09/07/17 10:48 36.6 49 20 160/99 (119) 95 Room Air 09/07/17 08:00 96 Room Air 09/07/17 07:36 36.5 56 18 160/97 (118) 96 Room Air 09/07/17 04:00 Room Air 09/07/17 03:48 36.3 53 20 123/72 (89) 96 Room Air 09/06/17 23:59 Room Air 09/06/17 23:50 36.3 57 20 124/64 (84) 96 Room Air 09/06/17 20:52 36.5 56 20 169/99 (122) 97 Room Air 09/06/17 20:00 95 Room Air 09/06/17 16:14 36.6 51 20 139/97 (111) 96 Room Air 09/06/17 16:00 96 Room Air Physical Exam General Appearance: no apparent distress Respiratory/Chest: lungs clear Cardiovascular: regular rate, rhythm Abdomen: normal bowel sounds, non tender, soft Neurologic/Psych: alert Skin: warm/dry Laboratory Results Last 24 Hours Test 09/07/17 05:47 White Blood Count 5.19 K/uL Red Blood Count 4.57 M/uL Hemoglobin 11.3 g/dL Hematocrit 35.1 % Mean Corpuscular Volume 76.8 fL Mean Corpuscular Hemoglobin 24.7 pg Mean Corpuscular Hemoglobin Concent 32.2 g/dl RDW Standard Deviation 45.3 fL RDW Coefficient of Variation 16.3 % Platelet Count 203 K/uL Mean Platelet Volume 10.2 fL Sodium Level 138 mmol/L Potassium Level 3.6 mmol/L Chloride Level 108 mmol/L Carbon Dioxide Level 26 mmol/L Anion Gap 4.0 mmol/L Blood Urea Nitrogen 27 mg/dl Creatinine 1.01 mg/dl Est Creatinine Clear Calc Drug Dose 84.6 ml/min Estimated GFR () 88.2 Estimated GFR (Non- 76.1 BUN/Creatinine Ratio 27.0 Random Glucose 107 mg/dl Calcium Level 8.8 mg/dl Iron Level 35 mcg/dl Total Iron Binding Capacity 453 mcg/dl Transferrin 335 mg/dl Transferrin % Saturation 7 % Ferritin 21.0 ng/ml Aspartate Amino Transf (AST/SGOT) 28 U/L Alanine Aminotransferase (ALT/SGPT) 61 U/L Vitamin B12 Level 752 pg/mL Folate 17.26 ng/mL Assessment and Plan Patient is a 67 year old male admitted with symptomatic anemia, substernal chest pain and known large hiatus hernia. 1. Invasive GI work up remains on hold due to ongoing cardiac work up. 2. Continue Protonix 40 mg BID. 3. Supportive care per primary team. Agree with SOILA Leiva as above No overt GI bleeding or GI complaints at present Abd: Soft, NT, ND, +BS Continue current therapy EGD following cardiac evaluation
[2017-09-07] MEDS: PANTOprazole INJ 40 MG in SYRINGE 0 ML IV SCH (13:15)
--- NOTE | 2017-09-07 13:32 | CARDIOLOGY PROGRESS NOTE ---
DATE: 09/07/2017 SUBJECTIVE: Mr. Bentley is resting comfortably in the bedside chair without complaints of chest pain. Still notes dyspnea with most physical activity even within his room. He underwent a Lexiscan earlier this morning. His echocardiogram is pending. OBJECTIVE: VITAL SIGNS: Blood pressure is 160/90 with a regular pulse of 50. Respiratory rate is 20. The patient is afebrile, 36.6 degree Celsius. Saturations 95% on room air. NECK: Supple with full carotid upstrokes. No carotid bruits. Jugular venous pressure is flat at 90 degrees. There is no thyromegaly. CARDIOVASCULAR EXAMINATION: Reveals a regular rhythm with normal S1, S2. A 1/6 basal systolic ejection murmur is noted. LUNGS: Clear without rales, rhonchi, or wheeze. ABDOMEN: Soft without bruits. EXTREMITIES: Reveal intact radial artery pulses bilaterally. No peripheral edema. DATA: CBC notes a hemoglobin of 11.3, hematocrit 35.1, white count 5.19, platelet count 203,000. Electrolytes note a sodium of 136, potassium 3.0, chloride 108, bicarb 26, BUN 27, creatinine 1.01, glucose of 103. Three troponin I levels are undetectable, less than 0.015. BNP is normal at 300. Echocardiogram and Lexiscan studies are pending. surveillance system monitor is benign. IMPRESSION AND PLAN: 1. Exertional dyspnea -- No obvious cardiac etiology identified thus far, however, echocardiogram and a nuclear stress test are pending. If these are unremarkable, could consider a CT scan of the chest to rule out pulmonary emboli. This would also allow us to assess his hiatal hernia. 2. Coronary artery disease -- Status post coronary artery bypass graft x2 in January 2017. This included an MCGOVERN to the LAD and an SVG to the first diagonal branch. 3. Hypertension -- Borderline control. 4. Bradycardia -- Atenolol dose decreased yesterday. 5. Hypercholesterolemia. 6. Hiatal hernia -- Being seen by GI. Could consider consultation with Dr. Casas as this is being arranged as an outpatient. The patient wanted a second opinion regarding repair of his hiatal hernia.
--- NOTE | 2017-09-07 14:33 | Myocardial Perfusion Study ---
Myocardial Perfusion Study Rpt Myocardial Perfusion Study Rpt Date of Service 09/07/2017 Myocardial Perfusion Study Rpt Procedure: 1. Myocardial perfusion study performed in multiple views/images 2. Lexiscan pharmacologic stress ECG Indications: 1. Dyspnea with exertion 2. CAD Consent: Informed written consent was obtained prior to the procedure. Ordering physician: Dr. Lee Procedural details: For the stress portion of the study, Lexiscan 0.4 mg was intravenously administered followed by a saline flush. This was followed by 22.4 mCi of technetium 99m Cardiolite, injected at 8:25 a.m. on 09/07/2017. 30 minutes following the injection, imaging of the heart was performed in multiple projections. For the rest portion of the study, 23.4 mCi technetium 99m Cardiolite was injected intravenously at 7:00 p.m. on 09/06/2017. 1 hour following the injection, imaging of the heart was performed in the same projections. Lexiscan stress ECG: Resting ECG demonstrated: Sinus bradycardia at 52 bpm. Maximum heart rate: 65 bpm Resting blood pressure: 160/96 mmHg Maximum blood pressure: 160/96 mmHg Maximal, age-predicted heart rate: 42 % Significant ST changes: None Arrhythmia: None Symptoms: No chest pain reported. Findings: Rotating raw imaging demonstrated no significant lung uptake. There is no significant motion artifact. Heart size appeared normal. Myocardial perfusion demonstrated a small area of mildly reduced uptake involving the distal to apical anteroseptum, which was reversible and resting images. There were no significant fixed defects to suggest infarct. Ejection fraction: 47 % Wall motion: There were no definite regional wall motion abnormalities visualized. No significant transient ischemic dilation. Impression: 1. Abnormal myocardial perfusion study suggesting a small area of mild ischemia involving the distal to apical anteroseptum. 2. Mildly reduced LV systolic function with EF of 47%. 3. No chest pain reported. 4. No arrhythmia. 5. Nondiagnostic Lexiscan ECG.
[2017-09-07] MEDS ORDERED: AMLODIPINE BESYLATE 5 MG TAB PO ONE (15:18)
--- NOTE | 2017-09-07 15:30 | Hospitalist Progress Note ---
Hospitalist Progress Note Date of Service Sep 07, 2017. (Abbey Schumacher ., DAYDAYC) Subjective Pt evaluation today including: conversation w/ patient, conversation w/ family (at bedside), physical exam, chart review, lab review, review of studies, review of inpatient medication list Pain: None PO Intake: Tolerating PO diet Voiding: no voiding problems The patient reports feeling well. He denies any chest pain. He denies any shortness of breath at rest but does still note dyspnea on exertion. He also reports fatigue as he has not been sleeping well here in the hospital. The patient denies fevers, chills, sweats, chest pain, palpitations, claudication, cough, wheezing, nausea, vomiting, abdominal pain, dysuria, hematuria, urinary retention, paralysis, weakness, numbness and tingling. Additional Comments: See HPI for pertinent positives and negatives. All other systems reviewed and negative. (Abbey Schumacher ., SALLY-C) Objective Vital Signs Date Time Temp Pulse Resp B/P (MAP) Pulse Ox O2 Delivery O2 Flow Rate FiO2 09/07/17 12:00 96 Room Air 09/07/17 10:48 36.6 49 20 160/99 (119) 95 Room Air 09/07/17 08:00 96 Room Air 09/07/17 07:36 36.5 56 18 160/97 (118) 96 Room Air 09/07/17 04:00 Room Air 09/07/17 03:48 36.3 53 20 123/72 (89) 96 Room Air 09/06/17 23:59 Room Air 09/06/17 23:50 36.3 57 20 124/64 (84) 96 Room Air 09/06/17 20:52 36.5 56 20 169/99 (122) 97 Room Air 09/06/17 20:00 95 Room Air 09/06/17 16:14 36.6 51 20 139/97 (111) 96 Room Air 09/06/17 16:00 96 Room Air (Abbey Schumacher PA-C) Physical Exam Notes: General appearance: +Obese. Well-developed, well-nourished, no apparent distress Head: Normocephalic, atraumatic Eyes: Normal inspection, PERRL, EOMI ENT: Normal ENT inspection, hearing grossly normal, pharynx normal Neck: Supple, no JVD, trachea midline Respiratory/Chest: +Decreased breath sounds in bases. Lungs clear to auscultation, no respiratory distress Cardiovascular: +Systolic murmur. Bradycardic. Regular rhythm, no gallop Abdomen/GI: Normal bowel sounds, non-tender, soft Extremities/Musculoskeletal: Normal inspection, no calf tenderness, no pedal edema Neurological/Psych: Alert, normal mood/affect, oriented x 3 Skin: Normal color, warm/dry, no rash (Abbey Schumacher, RENEE) Laboratory Results Last 24 Hours Test 09/07/17 05:47 White Blood Count 5.19 K/uL Red Blood Count 4.57 M/uL Hemoglobin 11.3 g/dL Hematocrit 35.1 % Mean Corpuscular Volume 76.8 fL Mean Corpuscular Hemoglobin 24.7 pg Mean Corpuscular Hemoglobin Concent 32.2 g/dl RDW Standard Deviation 45.3 fL RDW Coefficient of Variation 16.3 % Platelet Count 203 K/uL Mean Platelet Volume 10.2 fL Sodium Level 138 mmol/L Potassium Level 3.6 mmol/L Chloride Level 108 mmol/L Carbon Dioxide Level 26 mmol/L Anion Gap 4.0 mmol/L Blood Urea Nitrogen 27 mg/dl Creatinine 1.01 mg/dl Est Creatinine Clear Calc Drug Dose 84.6 ml/min Estimated GFR () 88.2 Estimated GFR (Non- 76.1 BUN/Creatinine Ratio 27.0 Random Glucose 107 mg/dl Calcium Level 8.8 mg/dl Iron Level 35 mcg/dl Total Iron Binding Capacity 453 mcg/dl Transferrin 335 mg/dl Transferrin % Saturation 7 % Ferritin 21.0 ng/ml Aspartate Amino Transf (AST/SGOT) 28 U/L Alanine Aminotransferase (ALT/SGPT) 61 U/L Vitamin B12 Level 752 pg/mL Folate 17.26 ng/mL (Abbey Schumacher ., SALLY-C) Diagnostic Results Reviewed the following studies and agree with interpretation as follows: Myocardial Perfusion Study Rpt Date of Service 09/07/2017 Myocardial Perfusion Study Rpt Procedure: 1. Myocardial perfusion study performed in multiple views/images 2. Lexiscan pharmacologic stress ECG Indications: 1. Dyspnea with exertion 2. CAD Consent: Informed written consent was obtained prior to the procedure. Ordering physician: Dr. Lee Procedural details: For the stress portion of the study, Lexiscan 0.4 mg was intravenously administered followed by a saline flush. This was followed by 22.4 mCi of technetium 99m Cardiolite, injected at 8:25 a.m. on 09/07/2017. 30 minutes following the injection, imaging of the heart was performed in multiple projections. For the rest portion of the study, 23.4 mCi technetium 99m Cardiolite was injected intravenously at 7:00 p.m. on 09/06/2017. 1 hour following the injection, imaging of the heart was performed in the same projections. Lexiscan stress ECG: Resting ECG demonstrated: Sinus bradycardia at 52 bpm. Maximum heart rate: 65 bpm Resting blood pressure: 160/96 mmHg Maximum blood pressure: 160/96 mmHg Maximal, age-predicted heart rate: 42 % Significant ST changes: None Arrhythmia: None Symptoms: No chest pain reported. Findings: Rotating raw imaging demonstrated no significant lung uptake. There is no significant motion artifact. Heart size appeared normal. Myocardial perfusion demonstrated a small area of mildly reduced uptake involving the distal to apical anteroseptum, which was reversible and resting images. There were no significant fixed defects to suggest infarct. Ejection fraction: 47 % Wall motion: There were no definite regional wall motion abnormalities visualized. No significant transient ischemic dilation. Impression: 1. Abnormal myocardial perfusion study suggesting a small area of mild ischemia involving the distal to apical anteroseptum. 2. Mildly reduced LV systolic function with EF of 47%. 3. No chest pain reported. 4. No arrhythmia. 5. Nondiagnostic Lexiscan ECG. (Abbey Schumacher ., RENEE) Assessment and Plan 67 y/o male with a history of HTN, HLD, CAD s/p CABG x 2 Jan 2017, DM II, BPH, vertigo, sleep apnea, and GERD who presents with progressive dyspnea on exertion. TOMAS--ongoing -Admit to telemetry. No acute events overnight. Pt in sinus bradycardia with HR high 40s-50s. -Sx not improved after blood transfusion. Hgb remains stable -Troponin negative x 3 -Echo pending -Nuclear stress test shows likely small area of mild ischemia distal to apical anteroseptum. EF 47%. -Cardiology consulted, appreciate recs: Spoke with Dr. Chavis. Area of ischemia is small, will hold off on cath for now. Could add amlodipine to help lower BP without worsening bradycardia and for anti-anginal effect. Will await results of echo, if that is normal could consider CTA of chest to r/o PE and to assess hiatal hernia. -CTA chest ordered -Consult thoracic surgery regarding large hiatal hernia. Pt was evaluated by thoracic surgery in [place] but wants second opinion CAD s/p CABG x 2, HTN, HLD--stable -Stress test as above -Atenolol decreased to 25 mg PO qd due to bradycardia -ASA on hold due to anemia, upcoming EGD -Start amlodipine 5 mg PO qd, one dose now DM II--last HgbA1c 6.1 on 01/21/17 -Sugars have been adequate here, diet controlled Microcytic anemia--appears to be KRISH, stable -S/p 2 units PRBCs night of 09/05 -Hgb remains stable at 11.3 on 09/07 -Iron studies suggest KRISH -GI consulted, appreciate recs: when safe from cardiac standpoint, will plan on EGD -Continue Protonix 40 mg IV BID -B12, folate WNL Elevated transaminases--resolving -LFTs trending down 09/07 DVT prophylaxis - SCDs Code Status -Level I, FULL RESUSCITATION STATUS (Abbey Schumacher, RENEE) Reviewed: Pt Seen/Exam by Me (Cathi Leahy MD) History Physician Machine Feed Operator Supervision Note: I interviewed and examined the patient. Discussed with SALLY Schumacher and agree with findings and plan as documented in the note. Any exceptions or clarifications are listed here: Patient reports he feels a little less dyspneic with ambulation to the toilet this evening. The nurse ambulated him in the hallway with pulse ox on a never dropped below 96% but did feel dyspneic. He denies chest pain or cough. Discussed the case with cardiology-mild area of reversible ischemia on the nuclear medicine stress test but cardiology does not feel this accounts for his symptoms. He received a transfusion yet had no improvement in his symptoms despite his iron deficiency anemia. CT angiogram of the chest was negative for PE today, but did show a large hiatal hernia with intrathoracic stomach which may be contributing. Vitals reviewed, telemetry with sinus bradycardia Gen: AAOx3, NAD HEENT: anicteric sclerae, EOMI CV: Regular rhythm, bradycardic no mgr nl S1S2 Pulm: CTAB no wcr Abd: +BS soft NT ND no masses or hernias Ext: no edema, 2+ DP pulses Skin: no rashes, warm/dry Neuro: full strength throughout Nuclear medicine stress test as above, EF 47% Echocardiogram with right-sided systolic dysfunction, grade 2 diastolic dysfunction, normal EF 67-year-old male with chronic combined systolic and diastolic CHF, CAD status post CABG, obesity, HTN,DM II, BPH, vertigo, sleep apnea, and GERD who presents with progressive dyspnea on exertion. Dyspnea-could be from bradycardia, large intrathoracic stomach, doubt acute CHF as he is euvolemic, proBNP is normal, nuclear stress with small area of reversible ischemia would not account for his significant symptoms. Could be from iron deficiency anemia. CT angiogram negative for PE. Could be combination of several of these things -Reduced dose of atenolol down to 25 mg which will help with bradycardia -Consult thoracic surgery to see if intrathoracic stomach could be contributing -Appreciate cardiology consultation -Received PRBCs and should remain on ferrous sulfate orally and follow CBC -JORDY mentioned-not on CPAP.-Need to find out why not? -Appreciate GI consultation-we will Hemoccult stool and see if EGD is still warranted -Asa was on hold due to microcytic anemia, however with significant CAD and no obvious bleeding, will restart in the morning -Remains on beta shannan. -Uncertain why he is not on statin agent (due to abnormal ast/alt?) Abnormal AST, ALT - these have been high for some time. Prior abdominal u/s showed fatty liver and thus could be 2nd to such. -Could likely be discharged home tomorrow after thoracic surgery consultation Documented By: Cathi Leahy (Cathi Leahy MD)
[2017-09-07] MEDS ORDERED: OPTIRAY 320 IV PRN (15:45)
--- NOTE | 2017-09-07 16:25 | DIAGNOSTIC IMAGING REPORT ---
(CHEST FOR PE) ANGIO WITH CT DOSE: 652.74 mGy.cm HISTORY: 67 years-old Male presents with acute dyspnea on exertion TECHNIQUE: Multiple CTA images of the chest were obtained after the intravenous administration of 94 ml Optiray 320. Coronal and sagittal MIPS were obtained from the axial data set and were submitted for review. A dose lowering technique was utilized adhering to the principles of ALARA. COMPARISON: Chest radiograph 09/05/2016 CTA of the chest 02/05/2017. FINDINGS: CTA: Moderate multichamber cardiac enlargement. Coronary arterial disease. No large pericardial effusion. Prior median sternotomy and CABG with incomplete bony healing at the sternotomy site. No aortic aneurysm or dissection identified, however the left heart structures and aortic outflow tract are not well opacified secondary to contrast bolus timing. The imaged great vessels appear patent and are unremarkable. Small foci of air within the right atrium and right ventricle are likely secondary to IV access site. The pulmonary arterial tree is opacified to level of the subsegmental branches and demonstrates no focal filling defects to suggest pulmonary thromboembolic disease. CT CHEST: No dominant thyroid nodule identified. No pathologically enlarged lymph nodes. Prior median sternotomy with minimal linear stranding of the fat within the anterior mediastinum, likely postsurgical. No postsurgical fluid collections. No pneumothorax or pleural effusion. Linear subsegmental bibasilar opacities suggest areas of atelectasis/scarring. There are no suspicious pulmonary nodules or masses identified. Mild bilateral bronchial wall thickening. Large sized hiatal hernia with partially intrathoracic stomach. Minimal stranding of the fat within the hiatal hernia with scattered nonenlarged lymph nodes. No acute process of the imaged upper abdomen. Soft tissues are unremarkable. Multilevel endplate spurring about the spine. IMPRESSION: 1. Prior median sternotomy and CABG with incomplete bony healing at the sternotomy site. 2. No acute aortic pathology or evidence of pulmonary thromboembolic disease. 3. Mild bilateral bronchial wall thickening may reflect bronchitis. No lobar airspace consolidation to suggest pneumonia. 4. Large hiatal hernia with partially intrathoracic stomach. The above report was generated using voice recognition software. It may contain grammatical, syntax or spelling errors. Electronically signed by: Shad Davis M.D. 09/07/2017 4:24 PM Dictated Date/Time: 09/07/2017 4:16 PM
[2017-09-07] MEDS: PANTOprazole SOD 40 MG TAB PO SCH (19:59)
--- NOTE | 2017-09-07 20:45 | ECHOCARDIOGRAM REPORT ---
*NOTICE TO RECEIVING [employer] This information is strictly Confidential and protected under [place] law. [place] law prohibits you from making any further disclosure of this information unless further disclosure is expressly permitted by the written consent of the person to whom it pertains or is authorized by law. A general authorization for the release of medical or other information is not sufficient for this purpose. Hospital accepts no responsibility if the information is made available to any other person, INCLUDING THE PATIENT. Interpretation Summary * Name: LYNN MURILLO Study Date: 09/07/2017 02:27 PM BP: 160/97 mmHg * Patient Location: .2E\S\E211\S\1 HR: 56 * : 1950 (M/d/yyyy) Gender: Male Height: 69 in * Age: 67 yrs Ethnicity: CA Weight: 239 lb * Ordering Physician: Shad Lee. * Referring Physician: Self, Referred * Performed By: Bettie Gonzalez RDCS * * Reason For Study: Dyspnea with shortness of breath * BSA: 2.2 m2 * -- Conclusions -- * 1. Normal left ventricular size and systolic function. EF 60-65%. No regional wall motion abnormalities. Moderate to severe concentric left ventricular hypertrophy. Type 2 diastolic dysfunction. * 2. Moderately dilated right ventricle with mildly reduced systolic function. * 3. The left atrium is severely dilated. * 4. The right atrium is moderately dilated. * 5. Mild aortic regurgitation. * 6. There is mild to moderate mitral regurgitation. * 7. Normal estimated right ventricular systolic pressure. * 8. Compared to prior study on 01/21/2017, similar findings. Right ventricle was better visualized on prior study. Procedure Details * A complete two-dimensional transthoracic echocardiogram was performed (2D, M-mode, Doppler and color flow Doppler). Left Ventricle * Normal left ventricular size and systolic function. EF 60-65%. No regional wall motion abnormalities. Moderate to severe concentric left ventricular hypertrophy. Type 2 diastolic dysfunction. Right Ventricle * Moderately dilated right ventricle with mildly reduced systolic function. * The right ventricle is not well visualized. * The right ventricular systolic function is reduced as assessed by tricuspid annular plane systolic excursion (TAPSE) (TAPSE <1.6 cm). Atria * The left atrium is severely dilated. * The right atrium is moderately dilated. * There is no evidence of atrial septal defect, but resolution does not allow assessment for a patent foramen ovale. Mitral Valve * The mitral valve is grossly normal. * There is no mitral valve stenosis. * There is mild to moderate mitral regurgitation. Tricuspid Valve * There is no tricuspid stenosis. * There is mild tricuspid regurgitation. Aortic Valve * The aortic valve is trileaflet. * No hemodynamically significant valvular aortic stenosis. * Mild aortic regurgitation. Pulmonic Valve * The pulmonary valve is inadequately visualized, but the Doppler data is adequate for interpretation. * There is no pulmonic valvular stenosis. * Trace pulmonic valvular regurgitation. Great Vessels * The aortic root is normal size. Pericardium/Pleural * There is no pericardial effusion. Great Vessels * Normal inferior vena cava size and collapsability with sniff indicates a normal right atrial pressure of 3 mmHg MMode 2D Measurements and Calculations IVSd 1.6 cm IVSs 1.5 cm LVIDd 4.4 cm LVIDs 2.7 cm LVPWd 1.4 cm LVPWs 1.6 cm IVS/LVPW 1.2 FS 38.3 % EDV(Teich) 88.0 ml ESV(Teich) 27.4 ml EF(Teich) 68.8 % EDV(cubed) 85.6 ml ESV(cubed) 20.1 ml EF(cubed) 76.6 % % IVS thick -10.22 % % LVPW thick 15.7 % LV mass(C)d 270.8 grams LV mass(C)dI 121.5 grams/m\S\2 LV mass(C)s 145.7 grams LV mass(C)sI 65.4 grams/m\S\2 SV(Teich) 60.6 ml SI(Teich) 27.2 ml/m\S\2 SV(cubed) 65.5 ml SI(cubed) 29.4 ml/m\S\2 Ao root diam 3.7 cm Ao root area 10.6 cm\S\2 ACS 2.0 cm LA dimension 4.7 cm LA/Ao 1.3 LVAd ap4 30.1 cm\S\2 LVLd ap4 8.2 cm EDV(MOD-sp4) 95.4 ml EDV(sp4-el) 93.0 ml LVAs ap4 13.7 cm\S\2 LVLs ap4 6.3 cm ESV(MOD-sp4) 27.9 ml ESV(sp4-el) 25.5 ml EF(MOD-sp4) 70.7 % EF(sp4-el) 72.6 % LVAd ap2 31.1 cm\S\2 LVLd ap2 8.3 cm EDV(MOD-sp2) 101.4 ml EDV(sp2-el) 99.3 ml LVAs ap2 17.8 cm\S\2 LVLs ap2 7.4 cm ESV(MOD-sp2) 36.6 ml ESV(sp2-el) 36.7 ml EF(MOD-sp2) 63.9 % EF(sp2-el) 63.0 % LVLd %diff 0.30 % EDV(MOD-bp) 98.6 ml LVLs %diff 14.9 % ESV(MOD-bp) 33.9 ml EF(MOD-bp) 65.6 % SV(MOD-sp4) 67.4 ml SI(MOD-sp4) 30.3 ml/m\S\2 SV(MOD-sp2) 64.8 ml SI(MOD-sp2) 29.1 ml/m\S\2 SV(MOD-bp) 64.7 ml SI(MOD-bp) 29.0 ml/m\S\2 SV(sp4-el) 67.6 ml SI(sp4-el) 30.3 ml/m\S\2 SV(sp2-el) 62.6 ml SI(sp2-el) 28.1 ml/m\S\2 Doppler Measurements and Calculations MV E max ulises 93.3 cm/sec MV A max ulises 64.2 cm/sec MV E/A 1.5 MV dec time 0.25 sec Ao V2 max 156.0 cm/sec Ao max PG 9.7 mmHg Ao max PG (full) 6.2 mmHg AI max ulises 434.7 cm/sec AI max PG 75.8 mmHg AI dec slope 170.6 cm/sec\S\2 AI P1/2t 746.0 msec LV V1 max PG 3.5 mmHg LV V1 max 93.8 cm/sec MR max ulises 545.5 cm/sec MR max PG 119.0 mmHg MR mean ulises 434.1 cm/sec MR mean PG 83.6 mmHg MR VTI 213.0 cm MR PISA 0.97 cm\S\2 MR PISA radius 0.39 cm PA V2 max 101.5 cm/sec PA max PG 4.2 mmHg TR max ulises 264.2 cm/sec RVSP(TR) 30.9 mmHg RAP systole 3.0 mmHg
[2017-09-08 04:00] VITALS: BP 144/89; PULSE 55; TEMP 36.5; O2SAT 97
[2017-09-08 06:24] LABS: HEMATOCRIT 36.8 % (42-52); HEMOGLOBIN 11.5 g/dL (14.0-18.0); MEAN CELL VOLUME 77.6 fL (80-100); MEAN CORPUSCULAR HEMOGLOBIN 24.3 pg (25-34); MEAN CORPUSCULAR HGB CONC 31.3 g/dl (32-36); MEAN PLATELET VOLUME 10.1 fL (7.4-10.4); PLATELET COUNT 207 K/uL (130-400); RED CELL DISTRIBUTION WIDTH CV 16.3 % (11.5-14.5); RED CELL DISTRIBUTION WIDTH SD 45.8 fL (36.4-46.3); WHITE BLOOD COUNT 5.97 K/uL (4.8-10.8)
[2017-09-08 07:03] LABS: CALCIUM 8.6 mg/dl (8.5-10.1); CREATININE 1.04 mg/dl (0.60-1.40); POTASSIUM 3.8 mmol/L (3.5-5.1)
[2017-09-08] MEDS ORDERED: FERROUS SULFATE 325 MG TAB PO SCH (07:30)
[2017-09-08 07:47] VITALS: BP 137/86; PULSE 59; TEMP 36.5; O2SAT 95
[2017-09-08] MEDS: PANTOprazole SOD 40 MG TAB PO SCH (07:49)
[2017-09-08] MEDS: SUCRALFATE 1 GM TAB PO SCH ×2 (07:49→10:49)
[2017-09-08 08:00] VITALS: O2SAT 95
--- NOTE | 2017-09-08 08:43 | CARDIOLOGY PROGRESS NOTE ---
DATE: 09/08/2017 SUBJECTIVE: Mr. Bentley is resting comfortably in the bedside chair without complaints of chest pain. He does note some dyspnea with physical activity. I discussed the results of his Lexiscan and echocardiogram. OBJECTIVE: VITAL SIGNS: Blood pressure 137/86 with a regular pulse of 60. Respiratory rate is 16. The patient is afebrile at 36.5 degrees Celsius. Saturation is 95% on room air. NECK: Supple with full carotid upstrokes. No obvious bruits. Jugular venous pressure is flat at 90 degrees. There is no thyromegaly. CARDIOVASCULAR EXAMINATION: Reveals a regular rhythm with normal S1 and S2. A 1/6 basal systolic ejection murmur is noted. No S3 or S4. LUNGS: Clear without rales, rhonchi, or wheeze. ABDOMEN: Soft without bruits. EXTREMITIES: Reveal intact radial artery pulse bilaterally. There is no peripheral edema. DATA: CBC notes hemoglobin 11.5, hematocrit 36.8, white count 5.97, platelet count 207,000. Electrolytes note a sodium of 137, potassium 3.8, chloride 107, bicarbonate 25, BUN 24, creatinine 1.04, glucose 116. court recording monitor is benign. The Lexiscan stress test notes possible ischemia in the distal anteroseptum. Echocardiogram notes normal left ventricular systolic function without wall motion abnormalities. Ejection fraction is 60%-65%. There is evidence of xhfjwjwi-[id number] concentric LVH and diastolic dysfunction. Ktwb-kg-lmdlgoyc mitral regurgitation and mild aortic insufficiency noted. IMPRESSION AND PLAN: 1. Exertional dyspnea -- Again, no obvious cardiac etiology. There is evidence of possible distal anteroseptal myocardial ischemia on stress test, however, this is of uncertain clinical significance. Would suspect a large area of ischemia if there was a cardiac component to his exertional dyspnea. This defect may be secondary to his zmtmdcez-[id number] left ventricular hypertrophy. Echocardiogram notes normal systolic function with ghyzsszl-vs-khkxkv LVH and diastolic dysfunction. 2. Coronary artery disease -- Status post coronary artery bypass grafting x2 in January 2017. Continue medical management. 3. Hypertension -- Better controlled with the addition of amlodipine. 4. Bradycardia -- Improving with reduced dose of atenolol. 5. Hypercholesterolemia. 6. Hiatal hernia -- Large on a CT scan of the chest. Being followed by GI. Could consider consultation with Dr. Casas to determine whether a surgical intervention is necessary.
[2017-09-08] MEDS ORDERED: ASPIRIN 81 MG ECTAB PO SCH (09:00)
[2017-09-08] MEDS ORDERED: AMLODIPINE BESYLATE 5 MG TAB PO SCH (09:00)
--- NOTE | 2017-09-08 10:20 | Medical Consult ---
Consultation Note Date of Service Sep 08, 2017. Consultation Note Consult Dictated #[id number]
--- NOTE | 2017-09-08 10:57 | CONSULTATION REPORT ---
DATE OF CONSULTATION: 09/08/2017 SURGICAL CONSULTATION REASON FOR CONSULTATION: Hiatal hernia. HISTORY OF PRESENT ILLNESS: This is a 67-year-old male we evaluated in the hospital secondary to a large hiatal hernia. I visited with the patient at his bedside and he notes that for approximately 3 weeks he has been getting progressive dyspnea on exertion and it got to the point where even minimal activity was causing some shortness of breath, so on 09/05/2017 he was admitted to the hospital. The patient has a significant cardiac history, he was seen and evaluated by cardiology including getting a nuclear stress test which showed a small area of perfusion defect, however, this was not felt to be the main contributing factor to his shortness of breath. The patient subsequently underwent a CT scan of his chest to evaluate for pulmonary emboli and this was negative for pulmonary emboli, but the patient was noted to have a large hiatal hernia with a portion of his stomach being in the thoracic cavity. We were asked to see the patient for this reason. It is also noteworthy to mention that the patient was noted to have a microcytic anemia and he was seen by gastroenterology and subsequent plans were made to perform an EGD once cardiac workup has been completed and the EGD is yet to be performed. I discussed with the patient of numerous symptomatology. He has not had any recent falls, head injuries, or visual changes. He denies tinnitus, sore throat, or neck pain. Since admission, he has not been having any substernal chest pain. He denies any diaphoresis or syncopal episodes. He does note dyspnea on exertion, but notes that he is okay at rest. Concerning gastroenterology symptomatology, he does not have any nausea, vomiting, diarrhea, hematochezia, melena, or bright blood per rectum. He denies any reflux symptoms and notes that he has known about his hiatal hernia and his symptoms are controlled with antireflux medications. He also denies any chronic cough. He denies dysuria. He has no history of stroke or seizure. He denies anxiety, depression, history of DVT or PE. It is further noteworthy to mention that the patient stated approximately 1 year ago, he did undergo coronary artery bypass grafting at [facility]. At the time of my exam, he was resting comfortably in a bedside chair. PAST MEDICAL HISTORY: Includes the followin. Hypertension. 2. Hyperlipidemia. 3. Coronary artery disease. 4. Hiatal hernia. 5. Obesity. 6. History of BPH. 7. Nephrolithiasis. PAST SURGICAL HISTORY: Includes: 1. Coronary artery bypass grafting. 2. Umbilical herniorrhaphy. SOCIAL HISTORY: The patient stated he smoked from age [age], noting 1 pack of cigarettes per day. He denies alcohol use. FAMILY HISTORY: The patient notes that he had a sister that had breast cancer and mother that had bone cancer. ALLERGIES: HE HAS LISTED ALLERGIES TO MORPHINE. PATIENT'S OUTPATIENT MEDICATION REGIMEN: Includes the followin. Aspirin 81 mg daily. 2. Atenolol 50 mg daily. 3. Sucralfate 1 g with meals and at bedtime. DIAGNOSTIC DATA: The patient's most recent labs include a CBC today where white blood cell count and platelet count were normal. Hemoglobin and hematocrit are 11.5 and 36.8. Chemistry profile from today showed sodium, potassium, and creatinine are all within the normal range. Stool for occult blood has been ordered and is pending. The patient has undergone a CT scan of the chest which was negative for pulmonary emboli. The patient had some evidence of bronchial wall thickening which may have reflected bronchitis, a large hiatal hernia was noted with partial intrathoracic stomach. IMPRESSION: This is a 67-year-old male with a large hiatal hernia. PLAN: I did discuss with numerous specialties taking care of the patient. I did discuss with Dr. Chavis, his pinked edge sewing machine operator, who felt that the patient's symptomatology is not cardiac in nature and he felt that if the patient would require surgical intervention for his hiatal hernia, he would be an acceptable risk with no further intervention to be undertaken. I discussed with Dr. Parekh of gastroenterology and plans are noted for the patient to undergo an EGD and he notes that this can be done electively as an outpatient. I discussed with the primary service, noted that the patient may be discharged from our standpoint, we will see him in the office. Ideally it would be preferable if he had an EGD prior to his office visit, so we will have this information available to us. Once we see the patient in the office, we will make recommendations about his hiatal hernia as this could be a contributing factor to the patient's shortness of breath and then we would likely need to perform a barium swallow to assess the patient's motility to determine if he would require a partial or full fundoplication, but this is yet to be determined based on Dr. Casas's review.
[2017-09-08 12:00] VITALS: O2SAT 95
[2017-09-08 12:33] VITALS: BP 129/87; PULSE 62; TEMP 36.5; O2SAT 96
[2017-09-08 13:00] VITALS: BP 129/87; PULSE 62; TEMP 36.5; O2SAT 96
[2017-09-08] MEDS ORDERED: PRT40 PO (14:39)
[2017-09-08] MEDS ORDERED: CLC100 PO (14:39)
[2017-09-08] MEDS ORDERED: NRV5 PO (14:39)
[2017-09-08] MEDS ORDERED: ATEN-173 PO (14:39)
[2017-09-08] MEDS ORDERED: FRRS300 PO (14:39)
--- NOTE | 2017-09-08 14:49 | Discharge Instructions ---
Discharge Instructions Date of Service Sep 08, 2017. Admission Reason for Admission: Chest Pain Discharge Discharge Diagnosis / Problem: Dyspnea on exertion Discharge Goals Goal(s): Decrease discomfort, Diagnostic testing, Therapeutic intervention Activity Recommendations Activity Limitations: resume your previous activity (as tolerated) . Instructions / Follow-Up Instructions / Follow-Up You were admitted to the hospital after presenting with progressive dyspnea on exertion, or shortness of breath with activity. You received a cardiac workup which did reveal a small area of possible ischemia on the nuclear stress test. Your database security administrator does not think that this explains your symptoms, however, and did not recommend any further testing. However, you were started on a new medication for your heart called amlodipine. You also had a CT scan of your chest, which did NOT show a blood clot, but confirmed the large hiatal hernia as well as part of your stomach being up in your chest cavity. Your heart rate was slow during your hospital stay, so your atenolol dose was decreased. This may also be contributing to your shortness of breath. Your large hiatal hernia may also be contributing. You will need to follow up as an outpatient regarding the hernia. Medications: *Please take amlodipine 5 mg daily. This is a medication to lower your blood pressure and may also help prevent chest pain. *Your atenolol dose has been lowered to 25 mg daily due to slow heart rate. *Please take ferrous sulfate 325 mg twice a day with meals. This is an iron supplement as you were found to have iron deficiency anemia. *Please take docusate sodium (Colace) 100 mg twice a day. This is a stool softener as the iron can make you constipated. *Please take pantoprazole (Protonix) 40 mg twice a day. This is a medication to reduce acid reflux that was recommended by the almond huller. *Continue your other home medications as prescribed. Follow up: *You will be scheduled to follow up with your primary care provider, cardiology , gastroenterology for an endoscopy, and thoracic surgery as scheduled. Please seek medical attention if you experience fevers, chills, sweats, dizziness/lightheadedness, loss of consciousness, chest pain, shortness of breath, nausea, vomiting, numbness or tingling. Current Hospital Diet Patient's current hospital diet: AHA Diet (Heart Healthy) Discharge Diet Recommended Diet: AHA Diet (Heart Healthy) Procedures Procedures Performed: Nuclear stress test, echocardiogram Pending Studies Studies pending at discharge: no Medical Emergencies . Who to Call and When: Medical Emergencies: If at any time you feel your situation is an emergency, please call 911 immediately. . Non-Emergent Contact Non-Emergency issues call your: Primary Care Provider, Shed Boss, Awning Finisher, Surgeon . Past History Medical & Surgical History: (1) TOMAS (dyspnea on exertion) . "Provider Documentation" section prepared by Abbey Schumacher. .
--- NOTE | 2017-09-08 15:03 | Discharge Summary ---
Discharge Summary Date of Service Sep 08, 2017. Discharge Summary Admission Date: Sep 06, 2017 at 19:56 Discharge Date: Sep 08, 2017 Discharge Disposition: Home Principal Diagnosis: Dyspnea on exertion Problems/Secondary Diagnoses: HTN HLD CAD s/p 2vCABG Jan 2017 DM II BPH vertigo Obstructive sleep apnea GERD Hiatal hernia Chronic combined systolic and diastolic CHF Sinus bradycardia Iron deficiency anemia Elevated transaminases Fatty liver Immunizations: Have You Had Influenza Vaccine: Unknown History of Tetanus Vaccine?: Unknown History of Pneumococcal: Unknown History of Hepatitis B Vaccine: Unknown Procedures: Myocardial Perfusion Study Rpt Date of Service 09/07/2017 Myocardial Perfusion Study Rpt Procedure: 1. Myocardial perfusion study performed in multiple views/images 2. Lexiscan pharmacologic stress ECG Indications: 1. Dyspnea with exertion 2. CAD Consent: Informed written consent was obtained prior to the procedure. Ordering physician: Dr. Lee Procedural details: For the stress portion of the study, Lexiscan 0.4 mg was intravenously administered followed by a saline flush. This was followed by 22.4 mCi of technetium 99m Cardiolite, injected at 8:25 a.m. on 09/07/2017. 30 minutes following the injection, imaging of the heart was performed in multiple projections. For the rest portion of the study, 23.4 mCi technetium 99m Cardiolite was injected intravenously at 7:00 p.m. on 09/06/2017. 1 hour following the injection, imaging of the heart was performed in the same projections. Lexiscan stress ECG: Resting ECG demonstrated: Sinus bradycardia at 52 bpm. Maximum heart rate: 65 bpm Resting blood pressure: 160/96 mmHg Maximum blood pressure: 160/96 mmHg Maximal, age-predicted heart rate: 42 % Significant ST changes: None Arrhythmia: None Symptoms: No chest pain reported. Findings: Rotating raw imaging demonstrated no significant lung uptake. There is no significant motion artifact. Heart size appeared normal. Myocardial perfusion demonstrated a small area of mildly reduced uptake involving the distal to apical anteroseptum, which was reversible and resting images. There were no significant fixed defects to suggest infarct. Ejection fraction: 47 % Wall motion: There were no definite regional wall motion abnormalities visualized. No significant transient ischemic dilation. Impression: 1. Abnormal myocardial perfusion study suggesting a small area of mild ischemia involving the distal to apical anteroseptum. 2. Mildly reduced LV systolic function with EF of 47%. 3. No chest pain reported. 4. No arrhythmia. 5. Nondiagnostic Lexiscan ECG. Echocardiogram: Interpretation Summary * Name: LYNN MURILLO Study Date: 09/07/2017 02:27 PM BP: 160/97 mmHg * Patient Location: 2E\S\E211\S\1 HR: 56 * : 1950 (M/d/yyyy) Gender: Male Height: 69 in * Age: 67 yrs Ethnicity: CA Weight: 239 lb * Ordering Physician: Shad Lee. * Referring Physician: Self, Referred * Performed By: Bettie Gonzalez RDCS * * Reason For Study: Dyspnea with shortness of breath * BSA: 2.2 m2 * -- Conclusions -- * 1. Normal left ventricular size and systolic function. EF 60-65%. No regional wall motion abnormalities. Moderate to severe concentric left ventricular hypertrophy. Type 2 diastolic dysfunction. * 2. Moderately dilated right ventricle with mildly reduced systolic function. * 3. The left atrium is severely dilated. * 4. The right atrium is moderately dilated. * 5. Mild aortic regurgitation. * 6. There is mild to moderate mitral regurgitation. * 7. Normal estimated right ventricular systolic pressure. * 8. Compared to prior study on 01/21/2017, similar findings. Right ventricle was better visualized on prior study. Procedure Details * A complete two-dimensional transthoracic echocardiogram was performed (2D, M-mode, Doppler and color flow Doppler). Left Ventricle * Normal left ventricular size and systolic function. EF 60-65%. No regional wall motion abnormalities. Moderate to severe concentric left ventricular hypertrophy. Type 2 diastolic dysfunction. Right Ventricle * Moderately dilated right ventricle with mildly reduced systolic function. * The right ventricle is not well visualized. * The right ventricular systolic function is reduced as assessed by tricuspid annular plane systolic excursion (TAPSE) (TAPSE <1.6 cm). Atria * The left atrium is severely dilated. * The right atrium is moderately dilated. * There is no evidence of atrial septal defect, but resolution does not allow assessment for a patent foramen ovale. Mitral Valve * The mitral valve is grossly normal. * There is no mitral valve stenosis. * There is mild to moderate mitral regurgitation. Tricuspid Valve * There is no tricuspid stenosis. * There is mild tricuspid regurgitation. Aortic Valve * The aortic valve is trileaflet. * No hemodynamically significant valvular aortic stenosis. * Mild aortic regurgitation. Pulmonic Valve * The pulmonary valve is inadequately visualized, but the Doppler data is adequate for interpretation. * There is no pulmonic valvular stenosis. * Trace pulmonic valvular regurgitation. Great Vessels * The aortic root is normal size. Pericardium/Pleural * There is no pericardial effusion. Great Vessels * Normal inferior vena cava size and collapsability with sniff indicates a normal right atrial pressure of 3 mmHg (CHEST FOR PE) ANGIO WITH CT DOSE: 652.74 mGy.cm HISTORY: 67 years-old Male presents with acute dyspnea on exertion TECHNIQUE: Multiple CTA images of the chest were obtained after the intravenous administration of 94 ml Optiray 320. Coronal and sagittal MIPS were obtained from the axial data set and were submitted for review. A dose lowering technique was utilized adhering to the principles of ALARA. COMPARISON: Chest radiograph 09/05/2016 CTA of the chest 02/05/2017. FINDINGS: CTA: Moderate multichamber cardiac enlargement. Coronary arterial disease. No large pericardial effusion. Prior median sternotomy and CABG with incomplete bony healing at the sternotomy site. No aortic aneurysm or dissection identified, however the left heart structures and aortic outflow tract are not well opacified secondary to contrast bolus timing. The imaged great vessels appear patent and are unremarkable. Small foci of air within the right atrium and right ventricle are likely secondary to IV access site. The pulmonary arterial tree is opacified to level of the subsegmental branches and demonstrates no focal filling defects to suggest pulmonary thromboembolic disease. CT CHEST: No dominant thyroid nodule identified. No pathologically enlarged lymph nodes. Prior median sternotomy with minimal linear stranding of the fat within the anterior mediastinum, likely postsurgical. No postsurgical fluid collections. No pneumothorax or pleural effusion. Linear subsegmental bibasilar opacities suggest areas of atelectasis/scarring. There are no suspicious pulmonary nodules or masses identified. Mild bilateral bronchial wall thickening. Large sized hiatal hernia with partially intrathoracic stomach. Minimal stranding of the fat within the hiatal hernia with scattered nonenlarged lymph nodes. No acute process of the imaged upper abdomen. Soft tissues are unremarkable. Multilevel endplate spurring about the spine. IMPRESSION: 1. Prior median sternotomy and CABG with incomplete bony healing at the sternotomy site. 2. No acute aortic pathology or evidence of pulmonary thromboembolic disease. 3. Mild bilateral bronchial wall thickening may reflect bronchitis. No lobar airspace consolidation to suggest pneumonia. 4. Large hiatal hernia with partially intrathoracic stomach. Consultations: Cardiology Gastroenterology Thoracic surgery Medication Reconciliation New Medications: Docusate Sodium (Docusate Sodium) 100 Mg Cap 100 MG PO BID for 30 Days, #60 CAP Amlodipine Besylate (Amlodipine Besylate) 5 Mg Tab 5 MG PO QAM for 30 Days, #30 TAB Ferrous Sulfate (Ferrous Sulfate) 325 Mg Tab 325 MG PO BIDM for 30 Days, #60 TAB Pantoprazole (Pantoprazole Sodium) 40 Mg Tab 40 MG PO BID for 30 Days, #60 TAB Changed Medications: Atenolol (Tenormin) 25 Mg Tab 25 MG PO DAILY for 30 Days, #30 TAB (Changed from: Atenolol (Tenormin) 50 Mg Tab 50 Mg PO QAM) Continued Medications: Aspirin (Aspirin Ec) 81 Mg Tab 81 MG PO DAILY Sucralfate (Sucralfate) 1 Gm Tab 1 GM PO ACHS, TAB Discharge Exam Patient reports feeling well. He denies any chest pain or shortness of breath at rest. He states that he is able to ambulate in the room without much dyspnea but thinks if he walked down the raya, he would feel dyspneic. He otherwise denies complaints. The patient denies fevers, chills, sweats, chest pain, palpitations, claudication, cough, wheezing, nausea, vomiting, abdominal pain, dysuria, hematuria, urinary retention, paralysis, weakness, numbness and tingling. Constitutional: No fever, No chills, No sweats Eyes: No worsening of vision, No eye pain, No diplopia ENT: No hearing loss, No nasal symptoms, No trouble swallowing Respiratory: +TOMAS, improved. No cough, No wheezing, No shortness of breath at rest Cardiovascular: No chest pain, No claudication, No palpitations Abdomen: No pain, No nausea, No vomiting Musculoskeletal: No joint pain, No muscle pain, No swelling Genitourinary - Male: No dysuria, No urinary retention, No hematuria Neurologic: No paralysis, No weakness, No numbness/tingling Integumentary: No rash, No itch, No color change General appearance: +Obese. Well-developed, well-nourished, no apparent distress Head: Normocephalic, atraumatic Eyes: Normal inspection, PERRL, EOMI ENT: Normal ENT inspection, hearing grossly normal, pharynx normal Neck: Supple, no JVD, trachea midline Respiratory/Chest: +Decreased breath sounds in bases. Lungs clear to auscultation, no respiratory distress Cardiovascular: +Systolic murmur. Bradycardic. Regular rhythm, no gallop Abdomen/GI: Normal bowel sounds, non-tender, soft Extremities/Musculoskeletal: Normal inspection, no calf tenderness, no pedal edema Neurological/Psych: Alert, normal mood/affect, oriented x 3 Skin: Normal color, warm/dry, no rash Hospital Course 67 y/o male with a history of HTN, HLD, CAD s/p CABG x 2 Jan 2017, DM II, BPH, vertigo, sleep apnea, and GERD who presents with progressive dyspnea on exertion. TOMAS--improving -Admit to telemetry. No acute events overnight. Pt in sinus bradycardia with HR 50s -Sx not improved after blood transfusion. Hgb remains stable -Troponin negative x 3 -Echo pending -Nuclear stress test shows likely small area of mild ischemia distal to apical anteroseptum. EF 47%. -Echo shows normal EF 60-65%. No WMA. Moderate to severe LVH. Type 2 diastolic dysfunction. -Cardiology consulted, appreciate recs: Area of ischemia is small, will hold off on cath or further testing for now as unclear clinical significance. Could add amlodipine to help lower BP without worsening bradycardia and for anti- anginal effect. Consider thoracic surgery input for hiatal hernia. -CTA chest negative for PE, confirms large hiatal hernia -Consult thoracic surgery regarding large hiatal hernia: will see as outpatient , preferably have EGD before. Likely will need barium swallow to determine if he needs a partial or full fundoplication. -TOMAS does not appear to be cardiac, could be related to bradycardia vs hiatal hernia CAD s/p CABG x 2, HTN, HLD--stable -Stress test as above -Atenolol decreased to 25 mg PO qd due to bradycardia -Resume ASA, EGD moved to outpt -Continue amlodipine 5 mg PO qd DM II--last HgbA1c 6.1 on 01/21/17 -Sugars have been adequate here, diet controlled Microcytic anemia--appears to be KRISH, stable -S/p 2 units PRBCs night of 09/05 -Hgb remains stable at 11.5 -Iron studies suggest KRISH -Ferrous sulfate 325 mg PO BIDM -GI consulted, appreciate recs: Can have outpatient EGD -Continue Protonix 40 mg PO BID -B12, folate WNL Elevated transaminases--resolving -LFTs trending down DVT prophylaxis - SCDs Code Status -Level I, FULL RESUSCITATION STATUS Dispo -F/u with PCP in 1 week -F/u cardiology, GI, thoracic surgery Total Time Spent: Greater than 30 minutes This includes examination of the patient, discharge planning, medication reconciliation, and communication with other providers. Discharge Instructions Please refer to the electronic Patient Visit Report (Discharge Instructions) for additional information. Follow-Up PCP within 1-2 weeks Cardiology within 2 weeks GI for EGD within 1 month Thoracic Surgery within 1 month Additional Copies To Lori Ponce C.R.N.P Reviewed: Pt Seen/Exam by Me History Physician Buggyman Supervision Note: I interviewed and examined the patient. Discussed with SALLY Schumacher and agree with findings and plan as documented in the note. Any exceptions or clarifications are listed here: Pt feels a little better with less dyspnea. POx remains normal. Discussed case with Thoracic Surgery PA and plan to have EGD as outpt and then see Thoracic Surgery for discussion of fundoplication after that. Tele with improved bradycardia, rates now 50s-60s. Vitals reviewed, telemetry with sinus bradycardia-NSR 50s-60s Gen: AAOx3, NAD HEENT: anicteric sclerae, EOMI CV: Regular rhythm, reg rate no mgr nl S1S2 Pulm: CTAB no wcr Abd: +BS soft NT ND no masses or hernias Ext: trace pitting edema left leg-chronic Skin: no rashes, warm/dry Neuro: full strength throughout Nuclear medicine stress test as above, EF 47% Echocardiogram with right-sided systolic dysfunction, grade 2 diastolic dysfunction, normal EF 67-year-old male with chronic combined systolic and diastolic CHF, CAD status post CABG, obesity, HTN,DM II, BPH, vertigo, sleep apnea, and GERD who presents with progressive dyspnea on exertion. Dyspnea-could be from bradycardia, large intrathoracic stomach, doubt acute CHF as he is euvolemic, proBNP is normal, nuclear stress with small area of reversible ischemia would not account for his significant symptoms. Could be from iron deficiency anemia. CT angiogram negative for PE. Could be combination of several of these things -Reduced dose of atenolol down to 25 mg which will help with bradycardia and seem sto have improved his symptoms somewhat -Consult thoracic surgery trto see if inathoracic stomach could be contributing is appreciated-plan for outpt f/u -Appreciate cardiology consultation-f/u as outpt -Received PRBCs and should remain on ferrous sulfate orally and follow CBC-plan for EGD as outpt, Hemoccult was never collected here -JORDY mentioned-not on CPAP.-question if needs this as outpatient? -Appreciate GI consultation -Uncertain why he is not on statin agent (due to abnormal ast/alt?)-can d/w PCP Abnormal AST, ALT - these have been high for some time. Prior abdominal u/s showed fatty liver and thus could be 2nd to such. -stable for discharge to home today Documented By: Cathi Leahy
== END 2017-09-08 17:18 | disposition home or self-care (01) | DRG 204 ==
LOC: C.EDB 15:37 → C.2E 19:45 → ENRESERV 20:00 → OBSVTOIN 09-06 19:56
PROVIDERS: ADMIT Internal Medicine; ATTEND Family Medicine
DX: R06.00 Dyspnea, unspecified (principal); I50.42 Chronic combined systolic (congestive) and diastolic (congestive) heart failure; I25.10 Atherosclerotic heart disease of native coronary artery without angina pectoris; D64.9 Anemia, unspecified; I11.0 Hypertensive heart disease with heart failure; N40.0 Benign prostatic hyperplasia without lower urinary tract symptoms; K44.9 Diaphragmatic hernia without obstruction or gangrene; K21.9 Gastro-esophageal reflux disease without esophagitis; G47.30 Sleep apnea, unspecified; R00.1 Bradycardia, unspecified; E11.9 Type 2 diabetes mellitus without complications; E78.00 Pure hypercholesterolemia, unspecified; Z79.82 Long term (current) use of aspirin; Z87.440 Personal history of urinary (tract) infections; Z88.5 Allergy status to narcotic agent; Z98.49 Cataract extraction status, unspecified eye; Z87.891 Personal history of nicotine dependence; Z80.1 Family history of malignant neoplasm of trachea, bronchus and lung; Z80.3 Family history of malignant neoplasm of breast; Z83.3 Family history of diabetes mellitus; Z81.8 Family history of other mental and behavioral disorders; Z82.49 Family history of ischemic heart disease and other diseases of the circulatory system

== ENCOUNTER → 2017-09-16 | Day surgery (SDC) | payer OTHER ==
[2017-09-13 09:45] VITALS: Ht 175.3 cm; Wt 102.3 kg
[~2017-09-16] VITALS: Ht 175.3 cm; Wt 102.3 kg
[~2017-09-16] MED LIST changes: -ACET-1256 PO; +ATEN-173 PO; -ATEN50TA8 PO; +CLC100 PO; +FRRS300 PO; -FURO-85 PO; +LIDOCAINE HCL 2% 2 ML VIAL (20MG/ML) ONE; +NRV5 PO; -NTRGSL/4 UT; -OMEP40CA41 PO; -OXYC-609 PO; -POTA20TA13 PO; +PROPOFOL IV EMULSION 10 MG/ML 20 ML VIAL IV ONE; +PRT40 PO; -SIMV40TA2 PO; +SODIUM CHLORIDE 0.9% 500ML 500 ML IV ONE; -SUCR1TAB PO; -TAMS0.4C38 PO
[2017-09-16 08:51] VITALS: TEMP 36.6
--- NOTE | 2017-09-16 09:09 | Endo History and Physical ---
History & Physical Date of Service: Sep 16, 2017. Chief Complaint: atypical chest pain, hernia Referring Physician: SOILA Amaro History of Present Illness 67 yo CM who presents for EGD secondary to atypical chest pain. Past Surgical History Hx Cardiac Surgery: Yes (CABG X2 01/2017) Hx Internal Defibrillator: No Hx Pacemaker: No Hx Abdominal Surgery: Yes (HERNIA REPAIR) Hx of Implantable Prosthesis: No Hx Post-Op Nausea and Vomiting: No Hx Cancer Surgery: No Hx Thoracic Surgery: No Hx Orthopedic: Yes (left ankle fusion) Hx Urinary Tract Surgery: No Family History None Social History Smoking Status: Former Smoker Hx Substance Use: No Hx Alcohol Use: No Allergies Coded Allergies: Morphine (Verified Adverse Reaction, Unknown, GI upset, 09/13/17) Current Medications Reported Home Medications Medications Dose Route/Sig Max Daily Dose Days Date Category Docusate Sodium 100 Mg Cap 100 Mg PO BID 30 09/08/17 Rx Pantoprazole Sodium (Pantoprazole) 40 Mg Tab 40 Mg PO BID 30 09/08/17 Rx Amlodipine Besylate 5 Mg Tab 5 Mg PO QAM 30 09/08/17 Rx Ferrous Sulfate 325 Mg Tab 325 Mg PO BIDM 30 09/08/17 Rx Tenormin (Atenolol) 25 Mg Tab 25 Mg PO DAILY 30 09/08/17 Rx Aspirin Ec (Aspirin) 81 Mg Tab 81 Mg PO DAILY 02/05/17 Reported Vital Signs Weight (Kilograms): 102.27 Height (Feet): 5 Height (Inches): 9 Date Time Temp Pulse Resp B/P (MAP) Pulse Ox O2 Delivery O2 Flow Rate FiO2 09/16/17 08:51 36.6 54 20 158/85 (109) 96 Room Air Physical Exam General Appearance: WD/WN, no apparent distress Respiratory/Chest: Auscultation: breath sounds normal Cardiovascular: Heart Auscultation: RRR Abdomen: Bowel Sounds: normal Inspection & Palpation: soft, non-distended, no tenderness, guarding & rebound Assessment and Plan Assessment: 67 yo CM who presents for EGD secondary to atypical chest pain. Plan: Proceed with colonoscopy.
--- NOTE | 2017-09-16 09:58 | Anesthesiology Progress Note ---
Anesthesia Post Op Note Date & Time Sep 16, 2017 at 09:58 Vital Signs Pain Intensity: 0 Vital Signs Past 12 Hours Date Time Temp Pulse Resp B/P (MAP) Pulse Ox O2 Delivery O2 Flow Rate FiO2 09/16/17 09:52 49 20 134/80 (98) 95 Room Air 09/16/17 09:36 56 20 110/73 (85) 95 Room Air 09/16/17 08:51 36.6 54 20 158/85 (109) 96 Room Air Notes Mental Status: alert / awake / arousable, participated in evaluation Pt Amnestic to Procedure: Yes Nausea / Vomiting: adequately controlled Pain: adequately controlled Airway Patency, RR, SpO2: stable & adequate BP & HR: stable & adequate Hydration State: stable & adequate Anesthetic Complications: no major complications apparent
[2017-09-16 10:08] VITALS: BP 143/89; PULSE 47; O2SAT 97
--- NOTE | 2017-09-16 10:20 | Discharge Instructions ---
Endoscopy Patient Instructions Date / Procedure(s) Performed Sep 16, 2017. EGD Allergy Information Coded Allergies: Morphine (Verified Adverse Reaction, Unknown, GI upset, 09/13/17) Discharge Date / Findings Sep 16, 2017. Gastritis s/p biopsies Hiatal hernia Medication Instructions Stopped Medication(s): Patient was told to take his 2 bp pills and to hold his others. OK to resume all medications today as prescribed Reported Home Medications Medications Dose Route/Sig Max Daily Dose Days Date Category Docusate Sodium 100 Mg Cap 100 Mg PO BID 30 09/08/17 Rx Pantoprazole Sodium (Pantoprazole) 40 Mg Tab 40 Mg PO BID 30 09/08/17 Rx Amlodipine Besylate 5 Mg Tab 5 Mg PO QAM 30 09/08/17 Rx Ferrous Sulfate 325 Mg Tab 325 Mg PO BIDM 30 09/08/17 Rx Tenormin (Atenolol) 25 Mg Tab 25 Mg PO DAILY 30 09/08/17 Rx Aspirin Ec (Aspirin) 81 Mg Tab 81 Mg PO DAILY 02/05/17 Reported Provider Instructions Activity Restrictions - No exercising or heavy lifting for 24 hours. - Do not drink alcohol the day of the procedure. - Do not drive a car or operate machinery until the day after the procedure. - Do not make any important decisions or sign important papers in 24 hours after the procedure. Following Day: - Return to full activity which may include returning to work/school. Diet Start your diet with liquids and light foods (jello, soup, juice, toast). Then eat your usual diet if not nauseated. Treatment For Common After Affects For mild abdominal pain, bloating, or excessive gas: - Rest - Eat lightly - Lie on right side Follow-Up Information Follow-up with SOILA Amaro as scheduled Anesthesia Information What You Should Know You have had a procedure that required some medicine to reduce anxiety and discomfort. This treatment is called moderate sedation. After receiving the treatment, you may be sleepy, but you will be able to breathe on your own. The effects of the treatment may last for several hours. Follow these instructions along with Activity/Diet recommendations noted above: * Do NOT do anything where dizziness or clumsiness would be dangerous. * Rest quietly at home today, then you can be up and about tomorrow. * Have a responsible person stay with you the rest of today. * You may have had an I.V. today. If so, you may take the dressing off later today. Recommendations Call your doctor if: * Trouble breathing * Continuous vomiting for more than 24 hours * Temperature above 101 degrees * Severe abdominal pain or bloating * Pain not relieved by pain medicine ordered * There is increased drainage or redness from any incision * A large amount of rectal bleeding greater than 2-3 tablespoons. (If you had a polyp/s removed or have hemorrhoids, a small amount of blood - from the rectum is to be expected.) * You have any unanswered questions or concerns. IN THE EVENT OF A SERIOUS EMERGENCY, GO TO THE NEAREST EMERGENCY ROOM Your discharge instructions were prepared by provider Jeovany Parekh. Patient Instructions Signature Page Eber Bentley Patient (or Guardian) Signature/Date: I have read and understand the instructions given to me by my caregivers. Caregiver/RN/Doctor Signature/Date: The above-named patient and/or guardian has received patient instructions on this date. + Original Patient Signature Page (only) stays with chart. Please make copy for patient.
--- NOTE | 2017-09-16 11:35 | GI REPORT ---
Patient Name: Eber Bentley Procedure Date: 09/16/2017 8:46 AM Date of : 1950 Admit Type: Outpatient Age: 67 Gender: Male Attending MD: Jeovany Parekh DO Procedure: Upper GI endoscopy Providers: Jeovany Parekh DO Referring MD: Lori Ponce Indications: Unexplained chest pain Medicines: Monitored Anesthesia Care Complications: No immediate complications. Estimated Blood Loss: Estimated blood loss: none. Procedure: Pre-Anesthesia Assessment: - Prior to the procedure, a History and Physical was performed, and patient medications and allergies were reviewed. The patient's tolerance of previous anesthesia was also reviewed. The risks and benefits of the procedure and the sedation options and risks were discussed with the patient. All questions were answered, and informed consent was obtained. Prior Anticoagulants: The patient has taken aspirin, last dose was 1 day prior to procedure. ASA Grade Assessment: III - A patient with severe systemic disease. After reviewing the risks and benefits, the patient was deemed in satisfactory condition to undergo the procedure. After obtaining informed consent, the endoscope was passed under direct vision. Throughout the procedure, the patient's blood pressure, pulse, and oxygen saturations were monitored continuously. The scope was introduced through the mouth, and advanced to the second part of duodenum. The upper GI endoscopy was accomplished without difficulty. The patient tolerated the procedure well. Findings: The esophagus was normal. A large hiatal hernia was present. Localized mild inflammation characterized by erosions and erythema was found in the gastric antrum. Biopsies were taken with a cold forceps for histology. The examined duodenum was normal. Impression: - Normal esophagus. - Large hiatal hernia. - Gastritis. Biopsied. - Normal examined duodenum. Recommendation: - Resume previous diet. - Continue present medications. - Await pathology results. - Return to primary care physician as previously scheduled. Jeovany Parekh DO 09/16/2017 9:36:57 AM This report has been signed electronically. Note Initiated On: 09/16/2017 8:46 AM Number of Addenda: 0 I attest to the content of the Intraoperative Record and orders documented therein, exceptions below {[id number]}
== END | disposition home or self-care (01) ==
LOC: C.GI 08:28
PROVIDERS: ATTEND Internal Medicine
DX: R07.89 Other chest pain (principal); K21.9 Gastro-esophageal reflux disease without esophagitis; K29.50 Unspecified chronic gastritis without bleeding; K44.9 Diaphragmatic hernia without obstruction or gangrene; E66.9 Obesity, unspecified; G47.33 Obstructive sleep apnea (adult) (pediatric); I10 Essential (primary) hypertension; E78.5 Hyperlipidemia, unspecified; Z95.1 Presence of aortocoronary bypass graft

== ENCOUNTER → 2017-10-11 | Outpatient (CLI) | payer OTHER ==
[~2017-10-11] MED LIST changes: -LIDOCAINE HCL 2% 2 ML VIAL (20MG/ML) ONE; -PROPOFOL IV EMULSION 10 MG/ML 20 ML VIAL IV ONE; -SODIUM CHLORIDE 0.9% 500ML 500 ML IV ONE
--- NOTE | 2017-10-11 10:05 | DIAGNOSTIC IMAGING REPORT ---
DOUBLE CONTRAST BARIUM ESOPHAGRAM CLINICAL HISTORY: Hiatal hernia. Gaseous of esophageal reflux disease. COMPARISON STUDY: Chest CT dated 09/07/2017. TECHNIQUE: A standard air contrast barium esophagram is performed. Multiple spot images of the esophagus are acquired both upright and prone. FINDINGS: The patient swallowed barium and the barium pill without difficulty. The mucosal pattern is normal. There is no evidence of intrinsic or extrinsic mass lesion. No aspiration was seen. The gastroesophageal junction distended normally. Gastroesophageal reflux could was observed during the examination. Midline sternotomy wires are noted. There is a large sliding-type hiatal hernia with at least half of the stomach located within the thoracic cavity. The duodenum is normal in configuration. Fluoroscopy time: 1.4 minutes. Fluoroscopic images: 24 IMPRESSION: 1. There is a large sliding-type hiatal hernia. 2. Gastroesophageal reflux was observed during the examination. Electronically signed by: Chi Meier M.D. 10/11/2017 10:04 AM Dictated Date/Time: 10/11/2017 10:01 AM
== END | disposition home or self-care (01) ==
LOC: C.RAD 08:59
PROVIDERS: ATTEND Surgery
DX: K44.9 Diaphragmatic hernia without obstruction or gangrene (principal); K21.9 Gastro-esophageal reflux disease without esophagitis

== ENCOUNTER 2021-11-03 18:33 | Inpatient (IN) ==
[2021-11-03] MEDS ORDERED: SODIUM CHLORIDE 0.9% 1000ML 500 ML IV ONE (18:58)
[2021-11-03 19:14] LABS: iSTAT Creatinine 0.8 mg/dl (0.6-1.3); iSTAT Hemoglobin 14.6 g/dl (14.0-18.0); iSTAT Ionized Calcium 1.27 mmol/l (1.12-1.32); iSTAT Potassium 4.1 mmol/L (3.3-5.0)
[2021-11-03 19:18] LABS: Basophils # (auto) 0.03 K/uL (0-0.2); Basophils % (auto) 0.4 %; Eosinophils # (auto) 0.24 K/uL (0-0.5); Eosinophils % (auto) 3.3 %; Hematocrit (blood only) 41.9 % (42-52); Hemoglobin 14.2 g/dL (14.0-18.0); Immature Granulocytes # (auto) 0.03 K/uL (0.00-0.02); Immature Granulocytes % (auto) 0.4 %; Lymphocytes % (auto) 24.7 %; Mean Corpuscular Hemoglobin 30.6 pg (25-34); Mean Corpuscular Hgb Conc 33.9 g/dL (32-36); Mean Corpuscular Volume 90.3 fL (80-100); Monocytes # (auto) 0.79 K/uL (0.11-0.59); Monocytes % (auto) 10.9 %; Neutrophils # (auto) 4.39 K/uL (1.4-6.5); Neutrophils % (auto) 60.3 %; Nucleated RBC # (auto) 0.04 K/uL (0-0); Nucleated RBC % (auto) 0.5 %; Platelet Count 224 K/uL (130-400); RDW Standard Deviation 45.4 fL (36.4-46.3); Red Blood Count 4.64 M/uL (4.7-6.1); White Blood Count 7.28 K/uL (4.8-10.8)
--- NOTE | 2021-11-03 19:18 | Emergency Department Note ---
Impression & Plan Slurred speech, Stroke-like symptoms ED Provider Note NAME: LYNN MURILLO Sr AGE: 71 SEX: M : 1950 ARRIVES VIA: Walk-In INFORMANT: [Patient] ED PROVIDER(S): [Chi Marshall MD] CHIEF COMPLAINT: Stroke symptoms HISTORY OF PRESENT ILLNESS: The patient is a 71-year-old male who has had slurred speech for 3 days. He actually thinks it is better than it was initially. No facial droop noted by friends, no arm or leg weakness noted by the patient. No headache. There has been no cough, cold or congestion. No shortness of breath, no abdominal pain. He has no history of CVA. He was brought today because of concerns for stroke. REVIEW OF SYSTEMS: See HPI for pertinent positives and negatives. A total of ten systems were reviewed and were otherwise negative. PMHx/PSHx: See Below SOCIAL HISTORY: See Below. PHYSICAL EXAM: GENERAL: Patient is in no acute distress. HEENT: No acute trauma, normocephalic atraumatic, mucous membranes moist, no nasal congestion, no scleral icterus. NECK: No stridor, no adenopathy, no meningismus, trachea is midline. LUNGS: Clear to auscultation bilaterally, no wheeze, no rhonchi, breath sounds equal. HEART: 2/6 systolic murmur, regular rate and rhythm. ABDOMEN: Soft, nontender, bowel sounds positive, no peritonitis. EXTREMITIES: No cyanosis or edema, full range of motion of all the joints without pain or difficulty, no signs for acute trauma. NEUROLOGIC: Oriented x 3. The patient's speech is slurred. No facial droop, no extremity drift, no cerebellar dysfunction. SKIN: No rash, no jaundice, no diaphoresis. DIFFERENTIAL DIAGNOSIS: Infection, UTI, dehydration, metabolic abnormality, hypo/hyperglycemia, electrolyte disturbance, anemia, hypoxia, cardiac sources, intracerebral event, toxicologic issues, stroke, TIA, as well as other pathologies. EMERGENCY DEPARTMENT COURSE/PROCEDURES: ECG: Indication was possible stroke. The ECG shows a sinus bradycardia with a rate of 58. There is an inverted T wave in aVL. No ST elevation, no PVCs. The QTc is 402. A potential old inferior infarct was noted. Continuous Cardiac Monitoring: An order was placed for continuous cardiac monitoring. The monitor shows a rate of 63 with normal sinus rhythm. Critical Care Note: I have personally spent 43 minutes of critical care time in the direct management of this patient. This includes bedside care, interpretation of diagnostic studies, and testing, discussion with consultants, patient, and family members, and other required patient management activities. This 43 minutes is in excess of all separately billable procedures. MEDICAL DECISION MAKING: There is no leukocytosis or concerning anemia. There is a normal platelet count. No coagulopathy. No significant electrolyte abnormality in need of emergent correction, no renal failure. No concerning liver enzyme elevation. Ammonia level is not elevated. ECG shows a sinus bradycardia, no obvious i schemia. Cardiac enzyme testing x1 is not consistent with acute cardiac injury. COVID test returned negative. Chest x-ray did not show CHF or pneumonia. Brain CT showed no acute bleed or mass-effect. CT angio of the brain and neck were done, no stenosis or clot seen. On exam, patient speech was slurred, no focal neurologic findings otherwise. The patient received a 500 cc saline bolus, he has been resting comfortably. The patient presents with slurred speech. He was way out of the window for tPA as he has had symptoms for 3 days. The patient requires a hospital stay for further stroke work-up. I did speak with the patient and case investigator, the on-call hospitalist was consulted. Past Med/Surg History Medical History Aortic insufficiency Delayed gastric emptying Hyperlipidemia Mitral regurgitation S/P CABG (coronary artery bypass graft) Sleep apnea does not use CPAP Surgical History History of bilateral cataract extraction History of colonoscopy History of coronary artery bypass graft History of coronary artery bypass graft x 2 History of esophagogastroduodenoscopy (EGD) History of Toyin fundoplication History of open reduction and internal fixation (ORIF) procedure History of repair of hiatal hernia History of tonsillectomy History of tooth extraction History of umbilical hernia repair Family History Sister Breast cancer Other No family history of adverse response to anesthesia Denies family history of Ovarian cancer Prostate cancer Myocardial infarction Colorectal cancer Social History Smoking Status: Never smoker Second Hand Exposure: No; Hx Alcohol Use: No Hx Substance Use: No Preferred Language: Kyrgyz Communication Ability: Effective Visual Impairment: No Limitations Hearing Ability: Normal Director Social Service Required: No Beliefs That Will Affect Care: None marital status: / Current Living Situation: Alone current occupational status: retired How many Children do You have: 2 Feels Safe at Home: Yes Childhood Exposure to Second-Hand Smoke: Yes caffeine: Yes Dental Care, Regularly: Yes Physical Activity Frequency: Daily Seatbelt Use: always Sunscreen Use: No Assistive Devices: Glasses Allergies Allergies Allergy/AdvReac Type Severity Reaction Status Date / Time Penicillins Allergy Unknown Unknown Verified 11/03/21 19:06 morphine AdvReac Mild GI upset Verified 11/03/21 19:06 Home Meds Home Medications Medication Instructions Recorded Confirmed aspirin 81 mg tablet,delayed 81 mg PO QAM 09/15/18 11/03/21 release ibuprofen 200 mg tablet 200 mg PO QID PRN 09/15/18 11/03/21 gabapentin 100 mg capsule 200 mg PO HS 11/03/21 11/03/21 metformin 500 mg tablet,extended 500 mg PO BID 11/03/21 11/03/21 release 24 hr Previous Rx's Medication Instructions Recorded diclofenac sodium 1 % topical gel 2 g TOPICAL QID PRN #100 g 02/06/20 sildenafil 100 mg tablet 100 mg PO DAILY PRN #10 tab 01/07/21 atenolol 50 mg tablet 50 mg PO DAILY #90 tab 04/25/21 amlodipine 10 mg tablet 10 mg PO DAILY #90 tab 09/11/21 atorvastatin 40 mg tablet 40 mg PO DAILY #90 tab 09/11/21 famotidine 40 mg tablet 40 mg PO DAILY #90 tab 09/11/21 losartan 50 mg tablet 50 mg PO DAILY #90 tab 09/11/21 pantoprazole 40 mg tablet,delayed 40 mg PO BID #180 tab 09/11/21 release tamsulosin 0.4 mg capsule (Flomax) 0.4 mg PO DAILY #90 cap 09/11/21 Results & Data (ED) Vital Signs Vital Signs - 24 hr 11/03/21 18:38 11/03/21 19:31 11/03/21 20:00 Temperature 36.3 C L Temperature Source Oral Pulse Rate 63 55 L 53 L Respiratory Rate 18 18 16 Blood Pressure 142/86 H 147/84 H 142/82 H Blood Pressure Mean 104 105 102 Pulse Oximetry 95 98 97 Oxygen Delivery Method Room Air Room Air Room Air Sepsis Recent Fever Within 48 Hours No Sepsis New/Unexplained Change in Mental Status No Sepsis Action Taken by Nursing No Action Required 11/03/21 20:32 Temperature Temperature Source Pulse Rate 52 L Respiratory Rate 16 Blood Pressure 144/85 H Blood Pressure Mean 104 Pulse Oximetry 96 Oxygen Delivery Method Room Air Sepsis Recent Fever Within 48 Hours Sepsis New/Unexplained Change in Mental Status Sepsis Action Taken by Snf Medications Current Medication List: was personally reviewed by me Laboratory Data Attestation: I reviewed the patient's lab results. Result diagrams: 11/03/21 18:51 11/03/21 18:51 Lab Results 11/03/21 11/03/21 11/03/21 Range/Units 18:51 18:51 18:51 WBC 7.28 (4.8-10.8) K/uL RBC 4.64 L (4.7-6.1) M/uL Hgb 14.2 (14.0-18.0) g/dL POC Hgb (14.0-18.0) g/dl Hct 41.9 L (42-52) % POC Hct (42-52) % MCV 90.3 (80-100) fL MCH 30.6 (25-34) pg MCHC 33.9 (32-36) g/dL RDW Std Deviation 45.4 (36.4-46.3) fL RDW Coeff of Marce 14.0 (11.5-14.5) % Plt Count 224 (130-400) K/uL MPV 12.0 H (7.4-10.4) fL Immature Gran % (Auto) 0.4 % Neut % (Auto) 60.3 % Lymph % (Auto) 24.7 % Door % (Auto) 10.9 % Eos % (Auto) 3.3 % Baso % (Auto) 0.4 % Neut # (Auto) 4.39 (1.4-6.5) K/uL Lymph # (Auto) 1.80 (1.2-3.4) K/uL Door # (Auto) 0.79 H (0.11-0.59) K/uL Eos # (Auto) 0.24 (0-0.5) K/uL Baso # (Auto) 0.03 (0-0.2) K/uL Immature Gran # (Auto) 0.03 H (0.00-0.02) K/uL Absolute Nucleated RBC 0.04 H (0-0) K/uL Nucleated RBC % (auto) 0.5 % PT 10.6 (9.0-12.0) Seconds INR 1.0 (0.9-1.1) APTT 28.6 (21.0-31.0) Seconds PTT Ratio 1.0 POC Sodium (135-144) mmol/L Sodium (136-145) mmol/L POC Potassium (3.3-5.0) mmol/L Potassium (3.5-5.1) mmol/L POC Chloride (101-112) mmol/L Chloride (98-107) mmol/L Carbon Dioxide (21-32) mmol/L POC Total CO2 (24-31) mmol/L Anion Gap (3-11) POC Anion Gap (16-25) mmol/L POC BUN (7-18) mg/dl BUN (6-23) mg/dl Creatinine (0.6-1.4) mg/dl POC Creatinine (0.6-1.3) mg/dl Est Cr Clr Drug Dosing ml/min Est GFR ( Amer) ml/min Est GFR (Non-Af Amer) ml/min BUN/Creatinine Ratio (10-20) Glucose (70-99(Fasting)) mg/dl POC Glucose 266 H (70-99) mg/dl POC Glucose (other) (70-99) mg/dl Calcium (8.5-10.1) mg/dl POC Ioniz Calcium Coby (1.12-1.32) mmol/l Magnesium (1.7-2.4) mg/dl Total Bilirubin (0.2-1.0) mg/dl AST (13-39) U/L ALT (7-52) U/L Alkaline Phosphatase (34-104) U/L Ammonia (18-72) umol/L Troponin I High Sens (0-20) pg/ml Total Protein (6.0-8.3) gm/dl Albumin (3.4-5.0) gm/dl Globulin (2.5-4.0) gm/dl Albumin/Globulin Ratio (0.9-2) SARS-CoV-2, RNA, NAAT (NEGATIVE) 11/03/21 11/03/21 11/03/21 Range/Units 18:51 19:01 19:04 WBC (4.8-10.8) K/uL RBC (4.7-6.1) M/uL Hgb (14.0-18.0) g/dL POC Hgb 14.6 (14.0-18.0) g/dl Hct (42-52) % POC Hct 43 (42-52) % MCV (80-100) fL MCH (25-34) pg MCHC (32-36) g/dL RDW Std Deviation (36.4-46.3) fL RDW Coeff of Marce (11.5-14.5) % Plt Count (130-400) K/uL MPV (7.4-10.4) fL Immature Gran % (Auto) % Neut % (Auto) % Lymph % (Auto) % Door % (Auto) % Eos % (Auto) % Baso % (Auto) % Neut # (Auto) (1.4-6.5) K/uL Lymph # (Auto) (1.2-3.4) K/uL Door # (Auto) (0.11-0.59) K/uL Eos # (Auto) (0-0.5) K/uL Baso # (Auto) (0-0.2) K/uL Immature Gran # (Auto) (0.00-0.02) K/uL Absolute Nucleated RBC (0-0) K/uL Nucleated RBC % (auto) % PT (9.0-12.0) Seconds INR (0.9-1.1) APTT (21.0-31.0) Seconds PTT Ratio POC Sodium 138 (135-144) mmol/L Sodium 135 L (136-145) mmol/L POC Potassium 4.1 (3.3-5.0) mmol/L Potassium 4.0 (3.5-5.1) mmol/L POC Chloride 102 (101-112) mmol/L Chloride 102 (98-107) mmol/L Carbon Dioxide 25 (21-32) mmol/L POC Total CO2 24 (24-31) mmol/L Anion Gap 8 (3-11) POC Anion Gap 17.0 (16-25) mmol/L POC BUN 22 H (7-18) mg/dl BUN 24 H (6-23) mg/dl Creatinine 1.01 (0.6-1.4) mg/dl POC Creatinine 0.8 (0.6-1.3) mg/dl Est Cr Clr Drug Dosing 75.1 ml/min Est GFR ( Amer) 85.7 ml/min Est GFR (Non-Af Amer) 74.0 ml/min BUN/Creatinine Ratio 23.8 H (10-20) Glucose 265 H (70-99(Fasting)) mg/dl POC Glucose (70-99) mg/dl POC Glucose (other) 276 H (70-99) mg/dl Calcium 10.0 (8.5-10.1) mg/dl POC Ioniz Calcium Coby 1.27 (1.12-1.32) mmol/l Magnesium 2.2 (1.7-2.4) mg/dl Total Bilirubin 1.0 (0.2-1.0) mg/dl AST 17 (13-39) U/L ALT 25 (7-52) U/L Alkaline Phosphatase 70 (34-104) U/L Ammonia 40.0 (18-72) umol/L Troponin I High Sens 7.9 (0-20) pg/ml Total Protein 7.7 (6.0-8.3) gm/dl Albumin 4.6 (3.4-5.0) gm/dl Globulin 3.1 (2.5-4.0) gm/dl Albumin/Globulin Ratio 1.5 (0.9-2) SARS-CoV-2, RNA, NAAT (NEGATIVE) 11/03/21 Range/Units 19:32 WBC (4.8-10.8) K/uL RBC (4.7-6.1) M/uL Hgb (14.0-18.0) g/dL POC Hgb (14.0-18.0) g/dl Hct (42-52) % POC Hct (42-52) % MCV (80-100) fL MCH (25-34) pg MCHC (32-36) g/dL RDW Std Deviation (36.4-46.3) fL RDW Coeff of Marce (11.5-14.5) % Plt Count (130-400) K/uL MPV (7.4-10.4) fL Immature Gran % (Auto) % Neut % (Auto) % Lymph % (Auto) % Door % (Auto) % Eos % (Auto) % Baso % (Auto) % Neut # (Auto) (1.4-6.5) K/uL Lymph # (Auto) (1.2-3.4) K/uL Door # (Auto) (0.11-0.59) K/uL Eos # (Auto) (0-0.5) K/uL Baso # (Auto) (0-0.2) K/uL Immature Gran # (Auto) (0.00-0.02) K/uL Absolute Nucleated RBC (0-0) K/uL Nucleated RBC % (auto) % PT (9.0-12.0) Seconds INR (0.9-1.1) APTT (21.0-31.0) Seconds PTT Ratio POC Sodium (135-144) mmol/L Sodium (136-145) mmol/L POC Potassium (3.3-5.0) mmol/L Potassium (3.5-5.1) mmol/L POC Chloride (101-112) mmol/L Chloride (98-107) mmol/L Carbon Dioxide (21-32) mmol/L POC Total CO2 (24-31) mmol/L Anion Gap (3-11) POC Anion Gap (16-25) mmol/L POC BUN (7-18) mg/dl BUN (6-23) mg/dl Creatinine (0.6-1.4) mg/dl POC Creatinine (0.6-1.3) mg/dl Est Cr Clr Drug Dosing ml/min Est GFR ( Amer) ml/min Est GFR (Non-Af Amer) ml/min BUN/Creatinine Ratio (10-20) Glucose (70-99(Fasting)) mg/dl POC Glucose (70-99) mg/dl POC Glucose (other) (70-99) mg/dl Calcium (8.5-10.1) mg/dl POC Ioniz Calcium Coby (1.12-1.32) mmol/l Magnesium (1.7-2.4) mg/dl Total Bilirubin (0.2-1.0) mg/dl AST (13-39) U/L ALT (7-52) U/L Alkaline Phosphatase (34-104) U/L Ammonia (18-72) umol/L Troponin I High Sens (0-20) pg/ml Total Protein (6.0-8.3) gm/dl Albumin (3.4-5.0) gm/dl Globulin (2.5-4.0) gm/dl Albumin/Globulin Ratio (0.9-2) SARS-CoV-2, RNA, NAAT NEGATIVE (NEGATIVE) Administered Medications Discontinued Medications Sodium Chloride (Nss 1000ml) 500 mls @ 999 mls/hr IV .Q31M ONE Stop: 11/03/21 19:28 Last Infusion: 11/03/21 19:49 Dose: 0 mls/hr Documented by: [id number] Admin: 11/03/21 19:08 Dose: 999 mls/hr Documented by: [id number] Ioversol (Optiray 320 125ml) 119 ml IV ONCE ONE Stop: 11/03/21 19:27 Last Admin: 11/03/21 19:26 Dose: 119 ml Documented by: [id number] Imaging Data Radiologist's Impression: Chest X-Ray 11/03/21 18:58 SINGLE VIEW CHEST CLINICAL HISTORY: Strokelike symptoms. FINDINGS: An AP, portable, upright chest radiograph is compared to study dated 02/06/2020. The patient is status post midline sternotomy. The heart is enlarged noting atherosclerotic calcification of the thoracic aorta. The pulmonary vasculature is noncongested. Chronic interstitial thickening is similar to previous. Mild atelectasis is noted at the lung bases. The lungs and pleural spaces are otherwise clear. No pneumothorax is seen. The bony thorax is grossly intact. IMPRESSION: Cardiomegaly with no active disease in the chest. ACT 112: Negative or not required by law. Electronically signed by: Chi Meier M.D. 11/03/2021 8:[address] 11/03/21 18:[address] OF THE BRAIN; CT ANGIOGRAM OF THE BRAIN; CT ANGIOGRAM OF THE NECK CLINICAL HISTORY: Strokelike symptoms. Slurred speech. COMPARISON STUDY: No priors. TECHNIQUE: Unenhanced axial CT scan of the brain is performed. Subsequently, following the IV administration of 119 of Optiray 320, CT angiogram of the head and neck was performed from the aortic arch to the vertex. Images are reviewed in the axial, sagittal, and coronal planes. 3-D MIPS images are created and assessed. IV contrast was administered without complication. All measurements were calculated based on NASCET criteria. A dose lowering technique was utilized adhering to the principles of ALARA. CT DOSE: 1184.93 mGy.cm FINDINGS: Brain parenchyma: There is age-related involutional change noting moderate subcortical and periventricular microangiopathic disease. There is no hemorrhage, mass effect, or evidence of acute territorial ischemia by CT criteria. There is no evidence of enhancing mass lesion on the angiogram phase images. The ventricles, sulci, and cisterns are prominent secondary to involutional change. Chronic lacunar infarcts are noted in both thalami as well as within the periventricular white matter. Wiggins-white matter differentiation is preserved. No extra-axial fluid collection is seen. Thoracic aorta: Visualized portions of the thoracic aorta are normal in caliber. The aortic arch demonstrates standard 3-vessel anatomy. Right carotid arterial system: The right common carotid artery is widely patent, as are the right internal and external carotid arteries. There is tortuosity of the proximal to mid internal carotid artery. Left carotid arterial system: The left common carotid artery is widely patent, as are the left internal and external carotid arteries. Mild calcified plaque is noted in the carotid bulb. There is tortuosity of the proximal mid internal ca rotid artery. Vertebral arteries: The vertebral arteries are widely patent bilaterally noting left-sided dominance. Subclavian arteries: Widely patent bilaterally. Intracranial vasculature: There is atherosclerotic calcification of the cavernous carotid and vertebral arteries. The internal carotid arteries are patent at the skull base, as are the anterior and middle cerebral arteries bilaterally. The vertebrobasilar system and posterior cerebral arteries are widely patent. The left vertebral artery is dominant. There is no aneurysm, high-grade stenosis, or focal vessel cut off seen throughout the intracranial circulation. Jugular veins: Patent bilaterally. Dural sinuses: Patent. Lung apices: Partially visualized upper lobe lung parenchyma appears clear. Soft tissues: The visualized pharyngeal soft tissues are normal in appearance noting angiographic phase technique. The oropharyngeal airway appears widely patent. The salivary and thyroid glands are normal in appearance. No cervical lymphadenopathy is seen. Skeletal structures: The skeletal structures are osteopenic. The calvarium appears intact. The cervical spine is maintained noting multilevel spondylosis. No lytic or blastic lesion is seen. Midline sternotomy wires are noted. Orbits: The bony orbits are intact. Orbital contents are normal as visualized noting bilateral ocular lens implants. Sinuses and mastoids: There is evidence of previous nasal sinus surgery. The paranasal sinuses are clear. There is a small left mastoid effusion. The right mastoid air cells are well pneumatized. IMPRESSION: 1. There is no hemorrhage, mass effect, or evidence of acute territorial ischemia by CT criteria. 2. Unremarkable CT angiogram of the brain. 3. Unremarkable CT angiogram of the neck. ACT 112: Negative or not required by law. Electronically signed by: Chi Meier M.D. 11/03/2021 7:44 PM Head CTA 11/03/21 18:[address] OF THE BRAIN; CT ANGIOGRAM OF THE BRAIN; CT ANGIOGRAM OF THE NECK CLINICAL HISTORY: Strokelike symptoms. Slurred speech. COMPARISON STUDY: No priors. TECHNIQUE: Unenhanced axial CT scan of the brain is performed. Subsequently, following the IV administration of 119 of Optiray 320, CT angiogram of the head and neck was performed from the aortic arch to the vertex. Images are reviewed in the axial, sagittal, and coronal planes. 3-D MIPS images are created and assessed. IV contrast was administered without complication. All measurements were calculated based on NASCET criteria. A dose lowering technique was utilized adhering to the principles of ALARA. CT DOSE: 1184.93 mGy.cm FINDINGS: Brain parenchyma: There is age-related involutional change noting moderate subcortical and periventricular microangiopathic disease. There is no hemorrhage, mass effect, or evidence of acute territorial ischemia by CT criteria. There is no evidence of enhancing mass lesion on the angiogram phase i mages. The ventricles, sulci, and cisterns are prominent secondary to involutional change. Chronic lacunar infarcts are noted in both thalami as well as within the periventricular white matter. Wiggins-white matter differentiation is preserved. No extra-axial fluid collection is seen. Thoracic aorta: Visualized portions of the thoracic aorta are normal in caliber. The aortic arch demonstrates standard 3-vessel anatomy. Right carotid arterial system: The right common carotid artery is widely patent, as are the right internal and external carotid arteries. There is tortuosity of the proximal to mid internal carotid artery. Left carotid arterial system: The left common carotid artery is widely patent, as are the left internal and external carotid arteries. Mild calcified plaque is noted in the carotid bulb. There is tortuosity of the proximal mid internal carotid artery. Vertebral arteries: The vertebral arteries are widely patent bilaterally noting left-sided dominance. Subclavian arteries: Widely patent bilaterally. Intracranial vasculature: There is atherosclerotic calcification of the cavernous carotid and vertebral arteries. The internal carotid arteries are patent at the skull base, as are the anterior and middle cerebral arteries bilaterally. The vertebrobasilar system and posterior cerebral arteries are widely patent. The left vertebral artery is dominant. There is no aneurysm, high-grade stenosis, or focal vessel cut off seen throughout the intracranial circulation. Jugular veins: Patent bilaterally. Dural sinuses: Patent. Lung apices: Partially visualized upper lobe lung parenchyma appears clear. Soft tissues: The visualized pharyngeal soft tissues are normal in appearance noting angiographic phase technique. The oropharyngeal airway appears widely patent. The salivary and thyroid glands are normal in appearance. No cervical lymphadenopathy is seen. Skeletal structures: The skeletal structures are osteopenic. The calvarium appears intact. The cervical spine is maintained noting multilevel spondylosis. No lytic or blastic lesion is seen. Midline sternotomy wires are noted. Orbits: The bony orbits are intact. Orbital contents are normal as visualized noting bilateral ocular lens implants. Sinuses and mastoids: There is evidence of previous nasal sinus surgery. The paranasal sinuses are clear. There is a small left mastoid effusion. The right mastoid air cells are well pneumatized. IMPRESSION: 1. There is no hemorrhage, mass effect, or evidence of acute territorial ischemia by CT criteria. 2. Unremarkable CT angiogram of the brain. 3. Unremarkable CT angiogram of the neck. ACT 112: Negative or not required by law. Electronically signed by: Chi Meier M.D. 11/03/2021 7:44 PM Neck CTA 11/03/21 18:[address] OF THE BRAIN; CT ANGIOGRAM OF THE BRAIN; CT ANGIOGRAM OF THE NECK CLINICAL HISTORY: Strokelike symptoms. Slurred speech. COMPARISON STUDY: No priors. TECHNIQUE: Unenhanced axial CT scan of the brain is performed. Subsequently, following the IV administration of 119 of Optiray 320, CT angiogram of the head and neck was performed from the aortic arch to the vertex. Images are reviewed in the axial, sagittal, and coronal planes. 3-D MIPS images are created and assessed. IV contrast was administered without complication. All measurements were calculated based on NASCET criteria. A dose lowering technique was utilized adhering to the principles of ALARA. CT DOSE: 1184.93 mGy.cm FINDINGS: Brain parenchyma: There is age-related involutional change noting moderate subcortical and periventricular microangiopathic disease. There is no hemorrhage, mass effect, or evidence of acute territorial ischemia by CT criteria. There is no evidence of enhancing mass lesion on the angiogram phase images. The ventricles, sulci, and cisterns are prominent secondary to involutional change. Chronic lacunar infarcts are noted in both thalami as well as within the periventricular white matter. Wiggins-white matter differentiation is preserved. No extra-axial fluid collection is seen. Thoracic aorta: Visualized portions of the thoracic aorta are normal in caliber. The aortic arch demonstrates standard 3-vessel anatomy. Right carotid arterial system: The right common carotid artery is widely patent, as are the right internal and external carotid arteries. There is tortuosity of the proximal to mid internal carotid artery. Left carotid arterial system: The left common carotid artery is widely patent, as are the left internal and external carotid arteries. Mild calcified plaque is noted in the carotid bulb. There is tortuosity of the proximal mid internal carotid artery. Vertebral arteries: The vertebral arteries are widely patent bilaterally noting left-sided dominance. Subclavian arteries: Widely patent bilaterally. Intracranial vasculature: There is atherosclerotic calcification of the ca vernous carotid and vertebral arteries. The internal carotid arteries are patent at the skull base, as are the anterior and middle cerebral arteries bilaterally. The vertebrobasilar system and posterior cerebral arteries are widely patent. The left vertebral artery is dominant. There is no aneurysm, high-grade stenosis, or focal vessel cut off seen throughout the intracranial circulation. Jugular veins: Patent bilaterally. Dural sinuses: Patent. Lung apices: Partially visualized upper lobe lung parenchyma appears clear. Soft tissues: The visualized pharyngeal soft tissues are normal in appearance noting angiographic phase technique. The oropharyngeal airway appears widely patent. The salivary and thyroid glands are normal in appearance. No cervical lymphadenopathy is seen. Skeletal structures: The skeletal structures are osteopenic. The calvarium appears intact. The cervical spine is maintained noting multilevel spondylosis. No lytic or blastic lesion is seen. Midline sternotomy wires are noted. Orbits: The bony orbits are intact. Orbital contents are normal as visualized noting bilateral ocular lens implants. Sinuses and mastoids: There is evidence of previous nasal sinus surgery. The paranasal sinuses are clear. There is a small left mastoid effusion. The right mastoid air cells are well pneumatized. IMPRESSION: 1. There is no hemorrhage, mass effect, or evidence of acute territorial ischemia by CT criteria. 2. Unremarkable CT angiogram of the brain. 3. Unremarkable CT angiogram of the neck. ACT 112: Negative or not required by law. Electronically signed by: Chi Meier M.D. 11/03/2021 7:44 PM Discharge Plan Visit Data Chief Complaint: Stroke/CVA Symptoms Stated Complaint: HAD STROKE, SLURRED SPEECH ED Provider: Chi Marshall Discharge Problem: Slurred speech, Stroke-like symptoms Patient Disposition: Admitted As Inpatient Condition: Good Forms Stand Alone Forms: [facility] cisimple Prescriptions Prescriptions: No Action sildenafil 100 mg tablet 100 mg PO DAILY PRN (Reason: sexual activity) Qty: 10 RF: 3 atenolol 50 mg tablet 50 mg PO DAILY Qty: 90 RF: 3 amlodipine 10 mg tablet 10 mg PO DAILY Qty: 90 RF: 3 atorvastatin 40 mg tablet 40 mg PO DAILY Qty: 90 RF: 3 famotidine 40 mg tablet 40 mg PO DAILY Qty: 90 RF: 3 losartan 50 mg tablet 50 mg PO DAILY Qty: 90 RF: 3 pantoprazole 40 mg tablet,delayed release (DR/EC) 40 mg PO BID Qty: 180 RF: 3 tamsulosin [Flomax] 0.4 mg capsule 0.4 mg PO DAILY Qty: 90 RF: 2 diclofenac sodium 1 % gel 2 g topical QID PRN (Reason: knee pain) Qty: 100 RF: 3 aspirin 81 mg Tablet,Delayed Release (Dr/Ec) 81 mg PO QAM RF: 0 ibuprofen 200 mg Tablet 200 mg PO QID PRN (Reason: Pain) RF: 0 gabapentin 100 mg capsule 200 mg PO HS RF: 0 metformin 500 mg tablet extended release 24 hr 500 mg PO BID RF: 0 Referrals Referrals: Lori Ponce CRNP [Primary Care Provider] -
[2021-11-03] MEDS ORDERED: OPTIRAY 320 125ml IV ONE (19:26)
[2021-11-03 19:27] LABS: Partial Thromboplastin Time 28.6 Seconds (21.0-31.0); Prothrombin Time 10.6 Seconds (9.0-12.0)
[2021-11-03 19:42] LABS: Albumin Globulin Ratio 1.5 (0.9-2); Albumin Level 4.6 gm/dl (3.4-5.0); BUN Creatinine Ratio 23.8 (10-20); Creatinine Clr Calc Pharmacy 75.1 ml/min; Est GFR (African American) 85.7 ml/min; Globulin 3.1 gm/dl (2.5-4.0); Magnesium 2.2 mg/dl (1.7-2.4); Total Protein 7.7 gm/dl (6.0-8.3)
[2021-11-03 19:45] LABS: Troponin I High Sensitivity 7.9 pg/ml (0-20)
--- NOTE | 2021-11-03 19:46 | CT Scan Report ---
UNENHANCED CT OF THE BRAIN; CT ANGIOGRAM OF THE BRAIN; CT ANGIOGRAM OF THE NECK CLINICAL HISTORY: Strokelike symptoms. Slurred speech. COMPARISON STUDY: No priors. TECHNIQUE: Unenhanced axial CT scan of the brain is performed. Subsequently, following the IV adminis tration of 119 of [address] 320, CT angiogram of the head and neck was performed from the aortic arch t o the vertex. Images are reviewed in the axial, sagittal, and coronal planes. 3-D MIPS images are cre ated and assessed. IV contrast was administered without complication. All measurements were calculate d based on NASCET criteria. A dose lowering technique was utilized adhering to the principles of ALA RA. CT DOSE: 1184.93 mGy.cm FINDINGS: Brain parenchyma: There is age-related involutional change noting moderate subcortical and periventri cular microangiopathic disease. There is no hemorrhage, mass effect, or evidence of acute territorial ischemia by CT criteria. There is no evidence of enhancing mass lesion on the angiogram phase images . The ventricles, sulci, and cisterns are prominent secondary to involutional change. Chronic lacunar infarcts are noted in both thalami as well as within the periventricular white matter. Wiggins-white ma tter differentiation is preserved. No extra-axial fluid collection is seen. Thoracic aorta: Visualized portions of the thoracic aorta are normal in caliber. The aortic arch demo nstrates standard 3-vessel anatomy. Right carotid arterial system: The right common carotid artery is widely patent, as are the right int ernal and external carotid arteries. There is tortuosity of the proximal to mid internal carotid fei ry. Left carotid arterial system: The left common carotid artery is widely patent, as are the left sales management intern al and external carotid arteries. Mild calcified plaque is noted in the carotid bulb. There is tortuo sity of the proximal mid internal carotid artery. Vertebral arteries: The vertebral arteries are widely patent bilaterally noting left-sided dominance. Subclavian arteries: Widely patent bilaterally. Intracranial vasculature: There is atherosclerotic calcification of the cavernous carotid and vertebr al arteries. The internal carotid arteries are patent at the skull base, as are the anterior and midd le cerebral arteries bilaterally. The vertebrobasilar system and posterior cerebral arteries are wide ly patent. The left vertebral artery is dominant. There is no aneurysm, high-grade stenosis, or focal vessel cut off seen throughout the intracranial circulation. Jugular veins: Patent bilaterally. Dural sinuses: Patent. Lung apices: Partially visualized upper lobe lung parenchyma appears clear. Soft tissues: The visualized pharyngeal soft tissues are normal in appearance noting angiographic pha se technique. The oropharyngeal airway appears widely patent. The salivary and thyroid glands are nor mal in appearance. No cervical lymphadenopathy is seen. Skeletal structures: The skeletal structures are osteopenic. The calvarium appears intact. The cervic al spine is maintained noting multilevel spondylosis. No lytic or blastic lesion is seen. Midline steve rnotomy wires are noted. Orbits: The bony orbits are intact. Orbital contents are normal as visualized noting bilateral ocular lens implants. Sinuses and mastoids: There is evidence of previous nasal sinus surgery. The paranasal sinuses are cl ear. There is a small left mastoid effusion. The right mastoid air cells are well pneumatized. IMPRESSION: 1. There is no hemorrhage, mass effect, or evidence of acute territorial ischemia by CT criteria. 2. Unremarkable CT angiogram of the brain. 3. Unremarkable CT angiogram of the neck. ACT 112: Negative or not required by law. Electronically signed by: Chi Meier M.D. 11/03/2021 7:44 PM
--- NOTE | 2021-11-03 20:17 | XRay Report ---
SINGLE VIEW CHEST CLINICAL HISTORY: Strokelike symptoms. FINDINGS: An AP, portable, upright chest radiograph is compared to study dated 02/06/2020. The patient is status post midline sternotomy. The heart is enlarged noting atherosclerotic calcification of the thoracic aorta. The pulmonary vasculature is noncongested. Chronic interstitial thickening is simila r to previous. Mild atelectasis is noted at the lung bases. The lungs and pleural spaces are otherwis e clear. No pneumothorax is seen. The bony thorax is grossly intact. IMPRESSION: Cardiomegaly with no active disease in the chest. ACT 112: Negative or not required by law. Electronically signed by: Chi Meier M.D. 11/03/2021 8:16 PM
--- NOTE | 2021-11-03 21:12 | History & Physical Report ---
Date of Service November 03, 2021 Assessment & Plan (1) Slurred speech: Plan: 71yo male with history of DM, HTN, HLP, evidence of prior CVA on CT brain presenting with two days of slurred speech. Workup thus far to include CT Head and CTA Head/Neck is unremarkable for acute intracranial pathology. Suspect CVA. Patient is out of window for thrombolysis. Symptoms have been improving over the last 48 hours. Blood pressure is acceptable -Admit to medical with telemetry -NIHSS daily, Neuro checks per protocol -Check Hgb AIC and Lipid panel -Check MRI Brain -Check 2D echo with bubble study -Continue ASA 81mg po daily -Initiate Plavix 75mg po daily -Continue Atorvastatin 40mg po daily -PT/OT and Speech evaluations appreciated -Neurology consultation appreciated (2) CAD, multiple vessel: Plan: Chronic. Patient denies chest pain -Continue ASA 81mg po daily -Continue Atenolol 50mg po daily -Continue Atorvastatin 40mg po daily -Continue Losartan 50mg po daily (3) Hypertension: Plan: Blood pressure mildly elevated at 144/85. Patient's symptoms began >48 hours ago. Most likely does not require permissive hypertension at this time -Continue Atenolol, Losartan, Amlodipine -Continue to monitor blood pressure (4) BPH (benign prostatic hyperplasia): Plan: Chronic. Stable -Continue Flomax 0.4mg daily -Monitor UOP (5) Diabetes mellitus: Plan: Elevated blood sugar on arrival. Patient is on Metformin at home. -Hold Metformin -Check HgbA1C with AM labs -Lantus 5u BID with ISS -Goal blood sugar 100 - 140 (6) Hyperlipidemia: Plan: Chronic -Continue Atorvastatin (7) GERD (gastroesophageal reflux disease): Plan: Chronic -Continue home medication, Famotidine 40mg po daily and Protonix BID (8) Sleep apnea: Plan: Patient does not use CPAP Plan: F/E/N - Heplock. Electrolytes WNL. AHA diet as tolerated with aspiration precautions Ppx - SCDs Code - Full per discussion with patient Dispo - Admit to medical with telemetry History of Present Illness Chief Complaint: slurred speech Primary Care Provider: SOILA Escudero Eber Bentley is a pleasant 71yo male with history of DM, HTN, HLP presenting with slurred speech which began approximately 48 hours ago. Patient was in his usual state of health when he developed sudden onset of slurred speech on the morning of 11/01/21 around 10:00 AM. He denies additional complaints at that time - specifically denies headache, visual disturbance, numbness, tingling, weakness. No ambulatory difficulties or confusion. Patient's speech has been slowly improving over the last 2 days. Still slower than usual and slightly slurred. His friend advised him to come to the ER. Patient with no additional complaints at this time. Specifically denies fever, chills, cough, SOB, FLORES, chest pain, palpitations, abdominal pain, nausea, vomiting, diarrhea or constipation. Workup in the ER with CT of the head with is negative for acute hemorrhage as well as unremarkable CTA Head/Neck. CT of the head did reveal areas of chronic infarcts in the thalamus and periventricular wiggins matter. Patient with no prior knowledge of CVA. ER Course: imaging obtained Allergies Allergy/AdvReac Type Severity Reaction Status Date / Time Penicillins Allergy Unknown Unknown Verified 11/03/21 19:06 morphine AdvReac Mild GI upset Verified 11/03/21 19:06 Home Medications Medication Instructions Recorded Confirmed Type aspirin 81 mg tablet,delayed 81 mg PO QAM 09/15/18 11/03/21 History release ibuprofen 200 mg tablet 200 mg PO QID PRN 09/15/18 11/03/21 History diclofenac sodium 1 % topical gel 2 g TOPICAL QID PRN #100 g 02/06/20 11/03/21 Rx sildenafil 100 mg tablet 100 mg PO DAILY PRN #10 tab 01/07/21 11/03/21 Rx atenolol 50 mg tablet 50 mg PO DAILY #90 tab 04/25/21 11/03/21 Rx amlodipine 10 mg tablet 10 mg PO DAILY #90 tab 09/11/21 11/03/21 Rx atorvastatin 40 mg tablet 40 mg PO DAILY #90 tab 09/11/21 11/03/21 Rx famotidine 40 mg tablet 40 mg PO DAILY #90 tab 09/11/21 11/03/21 Rx losartan 50 mg tablet 50 mg PO DAILY #90 tab 09/11/21 11/03/21 Rx pantoprazole 40 mg tablet,delayed 40 mg PO BID #180 tab 09/11/21 11/03/21 Rx release tamsulosin 0.4 mg capsule (Flomax) 0.4 mg PO DAILY #90 cap 09/11/21 11/03/21 Rx gabapentin 100 mg capsule 200 mg PO HS 11/03/21 11/03/21 History metformin 500 mg tablet,extended 500 mg PO BID 11/03/21 11/03/21 History release 24 hr Past Med/Surg History Medical History (Updated 11/04/21 @ 00:02 by Negar Suazo DO) Aortic insufficiency BPH (benign prostatic hyperplasia) CAD, multiple vessel Delayed gastric emptying Diabetes mellitus Hyperlipidemia Hypertension Mitral regurgitation Sleep apnea does not use CPAP Surgical History (Updated 11/03/21 @ 23:58 by Negar Suazo DO) History of bilateral cataract extraction History of colonoscopy History of coronary artery bypass graft History of coronary artery bypass graft x 2 2017 [place] [facility] [place] with Dr. Chavis History of esophagogastroduodenoscopy (EGD) History of Toyin fundoplication History of open reduction and internal fixation (ORIF) procedure left ankle--hardware removed History of repair of hiatal hernia History of tonsillectomy History of tooth extraction History of umbilical hernia repair S/P CABG (coronary artery bypass graft) Family History Sister Breast cancer Other No family history of adverse response to anesthesia Denies family history of Ovarian cancer Prostate cancer Myocardial infarction Colorectal cancer Social History Smoking Status: Never smoker Second Hand Exposure: No; Hx Alcohol Use: No Hx Substance Use: No Preferred Language: Kazakh Communication Ability: Effective Visual Impairment: No Limitations Hearing Ability: Normal Embossing [employer] Required: No Beliefs That Will Affect Care: None marital status: / Current Living Situation: Alone current occupational status: retired How many Children do You have: 2 Feels Safe at Home: Yes Childhood Exposure to Second-Hand Smoke: Yes caffeine: Yes Dental Care, Regularly: Yes Physical Activity Frequency: Daily Seatbelt Use: always Sunscreen Use: No Assistive Devices: Glasses Review of Systems Review of Systems: All systems reviewed & are unremarkable except as noted in HPI & below Physical Exam Physical Exam: General: patient resting comfortably, NAD, non-toxic in appearance, AA&O x 4 Skin: warm, dry, intact, no rashes or lesions HEENT: NC/AT, PERRL, EOMI, anicteric sclera, conjunctiva without injection, external ear normal to inspection and nontender, nares patent, moist mucus membranes, dentition intact, no oropharyngeal lesions, neck supple, trachea midline, no LAD, no thyromegaly, no JVD Heart: +S1/S2, regular, no m/r/g Lungs: equal air entry bilaterally, no rales/rhonchi/wheezes Abd: +BS, soft, NT/ND, no masses/organomegaly/ascites Ext: warm, 2+ pulses in UE/LE bilaterally, no clubbing/cyanosis or edema Neuro: AA&O x 4, speech is slow and slightly slurred, no facial droop, CN II - XII grossly normal, sensation to light touch intact in UE/LE bilaterally, MS 5/5 in UE/LE bilaterally, [id number] and [id number] normal, no drift Results & Data Results & Data ([facility]) Vital Signs (Past 12 Hours) Vital Signs Temp Pulse Resp BP Pulse Ox 11/03/21 20:32 52 L 16 144/85 H 96 11/03/21 20:00 53 L 16 142/82 H 97 11/03/21 19:31 55 L 18 147/84 H 98 11/03/21 18:38 36.3 C L 63 18 142/86 H 95 Laboratory Results Laboratory Results WBC 7.28 K/uL (4.8-10.8) 11/03/21 18:51 RBC 4.64 M/uL (4.7-6.1) L 11/03/21 18:51 Hgb 14.2 g/dL (14.0-18.0) 11/03/21 18:51 POC Hgb 14.6 g/dl (14.0-18.0) 11/03/21 19:01 Hct 41.9 % (42-52) L 11/03/21 18:51 POC Hct 43 % (42-52) 11/03/21 19:01 MCV 90.3 fL (80-100) 11/03/21 18:51 MCH 30.6 pg (25-34) 11/03/21 18:51 MCHC 33.9 g/dL (32-36) 11/03/21 18:51 RDW Std Deviation 45.4 fL (36.4-46.3) 11/03/21 18:51 RDW Coeff of Marce 14.0 % (11.5-14.5) 11/03/21 18:51 Plt Count 224 K/uL (130-400) 11/03/21 18:51 MPV 12.0 fL (7.4-10.4) H 11/03/21 18:51 Immature Gran % (Auto) 0.4 % 11/03/21 18:51 Neut % (Auto) 60.3 % 11/03/21 18:51 Lymph % (Auto) 24.7 % 11/03/21 18:51 Pepin % (Auto) 10.9 % 11/03/21 18:51 Eos % (Auto) 3.3 % 11/03/21 18:51 Baso % (Auto) 0.4 % 11/03/21 18:51 Neut # (Auto) 4.39 K/uL (1.4-6.5) 11/03/21 18:51 Lymph # (Auto) 1.80 K/uL (1.2-3.4) 11/03/21 18:51 Pepin # (Auto) 0.79 K/uL (0.11-0.59) H 11/03/21 18:51 Eos # (Auto) 0.24 K/uL (0-0.5) 11/03/21 18:51 Baso # (Auto) 0.03 K/uL (0-0.2) 11/03/21 18:51 Immature Gran # (Auto) 0.03 K/uL (0.00-0.02) H 11/03/21 18:51 Absolute Nucleated RBC 0.04 K/uL (0-0) H 11/03/21 18:51 Nucleated RBC % (auto) 0.5 % 11/03/21 18:51 PT 10.6 Seconds (9.0-12.0) 11/03/21 18:51 INR 1.0 (0.9-1.1) 11/03/21 18:51 APTT 28.6 Seconds (21.0-31.0) 11/03/21 18:51 PTT Ratio 1.0 11/03/21 18:51 POC Sodium 138 mmol/L (135-144) 11/03/21 19:01 Sodium 135 mmol/L (136-145) L 11/03/21 18:51 POC Potassium 4.1 mmol/L (3.3-5.0) 11/03/21 19:01 Potassium 4.0 mmol/L (3.5-5.1) 11/03/21 18:51 POC Chloride 102 mmol/L (101-112) 11/03/21 19:01 Chloride 102 mmol/L (98-107) 11/03/21 18:51 Carbon Dioxide 25 mmol/L (21-32) 11/03/21 18:51 POC Total CO2 24 mmol/L (24-31) 11/03/21 19:01 Anion Gap 8 (3-11) 11/03/21 18:51 POC Anion Gap 17.0 mmol/L (16-25) 11/03/21 19:01 POC BUN 22 mg/dl (7-18) H 11/03/21 19:01 BUN 24 mg/dl (6-23) H 11/03/21 18:51 Creatinine 1.01 mg/dl (0.6-1.4) 11/03/21 18:51 POC Creatinine 0.8 mg/dl (0.6-1.3) 11/03/21 19:01 Est Cr Clr Drug Dosing 75.1 ml/min 11/03/21 18:51 Est GFR ( Amer) 85.7 ml/min 11/03/21 18:51 Est GFR (Non-Af Amer) 74.0 ml/min 11/03/21 18:51 BUN/Creatinine Ratio 23.8 (10-20) H 11/03/21 18:51 Glucose 265 mg/dl (70-99(Fasting)) H 11/03/21 18:51 POC Glucose 266 mg/dl (70-99) H 11/03/21 18:51 POC Glucose (other) 276 mg/dl (70-99) H 11/03/21 19:01 Calcium 10.0 mg/dl (8.5-10.1) 11/03/21 18:51 POC Ioniz Calcium Coby 1.27 mmol/l (1.12-1.32) 11/03/21 19:01 Magnesium 2.2 mg/dl (1.7-2.4) 11/03/21 18:51 Total Bilirubin 1.0 mg/dl (0.2-1.0) 11/03/21 18:51 AST 17 U/L (13-39) 11/03/21 18:51 ALT 25 U/L (7-52) 11/03/21 18:51 Alkaline Phosphatase 70 U/L (34-104) 11/03/21 18:51 Ammonia 40.0 umol/L (18-72) 11/03/21 19:04 Troponin I High Sens 7.9 pg/ml (0-20) 11/03/21 18:51 Total Protein 7.7 gm/dl (6.0-8.3) 11/03/21 18:51 Albumin 4.6 gm/dl (3.4-5.0) 11/03/21 18:51 Globulin 3.1 gm/dl (2.5-4.0) 11/03/21 18:51 Albumin/Globulin Ratio 1.5 (0.9-2) 11/03/21 18:51 SARS-CoV-2, RNA, NAAT NEGATIVE (NEGATIVE) 11/03/21 19:32 Impressions Chest X-Ray 11/03/21 18:58 SINGLE VIEW CHEST CLINICAL HISTORY: Strokelike symptoms. FINDINGS: An AP, portable, upright chest radiograph is compared to study dated 02/06/2020. The patient is status post midline sternotomy. The heart is enlarged noting atherosclerotic calcification of the thoracic aorta. The pulmonary vasculature is noncongested. Chronic interstitial thickening is similar to previous. Mild atelectasis is noted at the lung bases. The lungs and pleural spaces are otherwise clear. No pneumothorax is seen. The bony thorax is grossly intact. IMPRESSION: Cardiomegaly with no active disease in the chest. ACT 112: Negative or not required by law. Electronically signed by: Cih Meier M.D. 11/03/2021 8:[address] 11/03/21 18:[address] OF THE BRAIN; CT ANGIOGRAM OF THE BRAIN; CT ANGIOGRAM OF THE NECK CLINICAL HISTORY: Strokelike symptoms. Slurred speech. COMPARISON STUDY: No priors. TECHNIQUE: Unenhanced axial CT scan of the brain is performed. Subsequently, following the IV administration of 119 of Optiray 320, CT angiogram of the head and neck was performed from the aortic arch to the vertex. Images are reviewed in the axial, sagittal, and coronal planes. 3-D MIPS images are created and assessed. IV contrast was administered without complication. All measurements were calculated based on NASCET criteria. A dose lowering technique was utilized adhering to the principles of ALARA. CT DOSE: 1184.93 mGy.cm FINDINGS: Brain parenchyma: There is age-related involutional change noting moderate subcortical and periventricular microangiopathic disease. There is no hemorrhage, mass effect, or evidence of acute territorial ischemia by CT criteria. There is no evidence of enhancing mass lesion on the angiogram phase images. The ventricles, sulci, and cisterns are prominent secondary to involutional change. Chronic lacunar infarcts are noted in both thalami as well as within the periventricular white matter. Wiggins-white matter differentiation is preserved. No extra-axial fluid collection is seen. Thoracic aorta: Visualized portions of the thoracic aorta are normal in caliber. The aortic arch demonstrates standard 3-vessel anatomy. Right carotid arterial system: The right common carotid artery is widely patent, as are the right internal and external carotid arteries. There is tortuosity of the proximal to mid internal carotid artery. Left carotid arterial system: The left common carotid artery is widely patent, as are the left internal and external carotid arteries. Mild calcified plaque is noted in the carotid bulb. There is tortuosity of the proximal mid internal carotid artery. Vertebral arteries: The vertebral arteries are widely patent bilaterally noting left-sided dominance. Subclavian arteries: Widely patent bilaterally. Intracranial vasculature: There is atherosclerotic calcification of the cavernous carotid and vertebral arteries. The internal carotid arteries are patent at the skull base, as are the anterior and middle cerebral arteries bilaterally. The vertebrobasilar system and posterior cerebral arteries are widely patent. The left vertebral artery is dominant. There is no aneurysm, high-grade stenosis, or focal vessel cut off seen throughout the intracranial circulation. Jugular veins: Patent bilaterally. Dural sinuses: Patent. Lung apices: Partially visualized upper lobe lung parenchyma appears clear. Soft tissues: The visualized pharyngeal soft tissues are normal in appearance noting angiographic phase technique. The oropharyngeal airway appears widely patent. The salivary and thyroid glands are normal in appearance. No cervical lymphadenopathy is seen. Skeletal structures: The skeletal structures are osteopenic. The calvarium appears intact. The cervical spine is maintained noting multilevel spondylosis. No lytic or blastic lesion is seen. Midline sternotomy wires are noted. Orbits: The bony orbits are intact. Orbital contents are normal as visualized noting bilateral ocular lens implants. Sinuses and mastoids: There is evidence of previous nasal sinus surgery. The paranasal sinuses are clear. There is a small left mastoid effusion. The right mastoid air cells are well pneumatized. IMPRESSION: 1. There is no hemorrhage, mass effect, or evidence of acute territorial ischemia by CT criteria. 2. Unremarkable CT angiogram of the brain. 3. Unremarkable CT angiogram of the neck. ACT 112: Negative or not required by law. Electronically signed by: Chi Meier M.D. 11/03/2021 7:44 PM Head CTA 11/03/21 18:[address] OF THE BRAIN; CT ANGIOGRAM OF THE BRAIN; CT ANGIOGRAM OF THE NECK CLINICAL HISTORY: Strokelike symptoms. Slurred speech. COMPARISON STUDY: No priors. TECHNIQUE: Unenhanced axial CT scan of the brain is performed. Subsequently, following the IV administration of 119 of Optiray 320, CT angiogram of the head and neck was performed from the aortic arch to the vertex. Images are reviewed in the axial, sagittal, and coronal planes. 3-D MIPS images are created and assessed. IV contrast was administered without complication. All measurements were calculated based on NASCET criteria. A dose lowering technique was utilized adhering to the principles of ALARA. CT DOSE: 1184.93 mGy.cm FINDINGS: Brain parenchyma: There is age-related involutional change noting moderate subcortical and periventricular microangiopathic disease. There is no hemorrhage, mass effect, or evidence of acute territorial ischemia by CT criteria. There is no evidence of enhancing mass lesion on the angiogram phase images. The ventricles, sulci, and cisterns are prominent secondary to involutional change. Chronic lacunar infarcts are noted in both thalami as well as within the periventricular white matter. Wiggins-white matter differentiation is preserved. No extra-axial fluid collection is seen. Thoracic aorta: Visualized portions of the thoracic aorta are normal in caliber. The aortic arch demonstrates standard 3-vessel anatomy. Right carotid arterial system: The right common carotid artery is widely patent, as are the right internal and external carotid arteries. There is tortuosity of the proximal to mid internal carotid artery. Left carotid arterial system: The left common carotid artery is widely patent, as are the left internal and external carotid arteries. Mild calcified plaque is noted in the carotid bulb. There is tortuosity of the proximal mid internal carotid artery. Vertebral arteries: The vertebral arteries are widely patent bilaterally noting left-sided dominance. Subclavian arteries: Widely patent bilaterally. Intracranial vasculature: There is atherosclerotic calcification of the cavernous carotid and vertebral arteries. The internal carotid arteries are patent at the skull base, as are the anterior and middle cerebral arteries bilaterally. The vertebrobasilar system and posterior cerebral arteries are widely patent. The left vertebral artery is dominant. There is no aneurysm, high-grade stenosis, or focal vessel cut off seen throughout the intracranial circulation. Jugular veins: Patent bilaterally. Dural sinuses: Patent. Lung apices: Partially visualized upper lobe lung parenchyma appears clear. Soft tissues: The visualized pharyngeal soft tissues are normal in appearance noting angiographic phase technique. The oropharyngeal airway appears widely patent. The salivary and thyroid glands are normal in appearance. No cervical lymphadenopathy is seen. Skeletal structures: The skeletal structures are osteopenic. The calvarium jil ears intact. The cervical spine is maintained noting multilevel spondylosis. No lytic or blastic lesion is seen. Midline sternotomy wires are noted. Orbits: The bony orbits are intact. Orbital contents are normal as visualized noting bilateral ocular lens implants. Sinuses and mastoids: There is evidence of previous nasal sinus surgery. The paranasal sinuses are clear. There is a small left mastoid effusion. The right mastoid air cells are well pneumatized. IMPRESSION: 1. There is no hemorrhage, mass effect, or evidence of acute territorial ischemia by CT criteria. 2. Unremarkable CT angiogram of the brain. 3. Unremarkable CT angiogram of the neck. ACT 112: Negative or not required by law. Electronically signed by: Chi Meier M.D. 11/03/2021 7:44 PM Neck CTA 11/03/21 18:[address] OF THE BRAIN; CT ANGIOGRAM OF THE BRAIN; CT ANGIOGRAM OF THE NECK CLINICAL HISTORY: Strokelike symptoms. Slurred speech. COMPARISON STUDY: No priors. TECHNIQUE: Unenhanced axial CT scan of the brain is performed. Subsequently, following the IV administration of 119 of Optiray 320, CT angiogram of the head and neck was performed from the aortic arch to the vertex. Images are reviewed in the axial, sagittal, and coronal planes. 3-D MIPS images are created and assessed. IV contrast was administered without complication. All measurements were calculated based on NASCET criteria. A dose lowering technique was utilized adhering to the principles of ALARA. CT DOSE: 1184.93 mGy.cm FINDINGS: Brain parenchyma: There is age-related involutional change noting moderate subcortical and periventricular microangiopathic disease. There is no hemorrhage, mass effect, or evidence of acute territorial ischemia by CT criteria. There is no evidence of enhancing mass lesion on the angiogram phase images. The ventricles, sulci, and cisterns are prominent secondary to involutional change. Chronic lacunar infarcts are noted in both thalami as well as within the periventricular white matter. Wiggins-white matter differentiation is preserved. No extra-axial fluid collection is seen. Thoracic aorta: Visualized portions of the thoracic aorta are normal in caliber. The aortic arch demonstrates standard 3-vessel anatomy. Right carotid arterial system: The right common carotid artery is widely patent, as are the right internal and external carotid arteries. There is tortuosity of the proximal to mid internal carotid artery. Left carotid arterial system: The left common carotid artery is widely patent, as are the left internal and external carotid arteries. Mild calcified plaque is noted in the carotid bulb. There is tortuosity of the proximal mid internal carotid artery. Vertebral arteries: The vertebral arteries are widely patent bilaterally noting left-sided dominance. Subclavian arteries: Widely patent bilaterally. Intracranial vasculature: There is atherosclerotic calcification of the ca vernous carotid and vertebral arteries. The internal carotid arteries are patent at the skull base, as are the anterior and middle cerebral arteries bilaterally. The vertebrobasilar system and posterior cerebral arteries are widely patent. The left vertebral artery is dominant. There is no aneurysm, high-grade stenosis, or focal vessel cut off seen throughout the intracranial circulation. Jugular veins: Patent bilaterally. Dural sinuses: Patent. Lung apices: Partially visualized upper lobe lung parenchyma appears clear. Soft tissues: The visualized pharyngeal soft tissues are normal in appearance noting angiographic phase technique. The oropharyngeal airway appears widely patent. The salivary and thyroid glands are normal in appearance. No cervical lymphadenopathy is seen. Skeletal structures: The skeletal structures are osteopenic. The calvarium appears intact. The cervical spine is maintained noting multilevel spondylosis. No lytic or blastic lesion is seen. Midline sternotomy wires are noted. Orbits: The bony orbits are intact. Orbital contents are normal as visualized noting bilateral ocular lens implants. Sinuses and mastoids: There is evidence of previous nasal sinus surgery. The paranasal sinuses are clear. There is a small left mastoid effusion. The right mastoid air cells are well pneumatized. IMPRESSION: 1. There is no hemorrhage, mass effect, or evidence of acute territorial ischemia by CT criteria. 2. Unremarkable CT angiogram of the brain. 3. Unremarkable CT angiogram of the neck. ACT 112: Negative or not required by law. Electronically signed by: Chi Meier M.D. 11/03/2021 7:44 PM ECG Additional Comments: EKG with sinus bradycardia, incomplete RBBB, no acute ischemia Code Status & VTE Plan VTE Prophylaxis Plan VTE Prophylaxis will be ordered: Yes PG Care Time/CCT Total # of Minutes Spent Total Time Spent with Patient: Total time spent is greater than 50% in coordination of care (as documented) at patient's floor/unit and/or counseling patient: Coding Level of Care Code 31557 Initial Inpt Care Lvl 3 Diagnoses CAD, multiple vessel I25.10 Hypertension I10 BPH (benign prostatic hyperplasia) N40.0 Diabetes mellitus E11.9 Slurred speech R47.81 Hyperlipidemia E78.5 GERD (gastroesophageal reflux disease) K21.9 Sleep apnea G47.30
[2021-11-03] MEDS ORDERED: GABAPENTIN 100 MG CAP PO SCH (22:49)
[2021-11-03] MEDS ORDERED: GLUCOSE 40% GEL 15 GM TUBE PO PRN (22:49)
[2021-11-03] MEDS ORDERED: DICLOFENAC SOD 1% GEL 100 GM TUBE EXT PRN (22:49)
[2021-11-03] MEDS ORDERED: GLUCOSE 10 TABS/TUBE PO PRN (22:49)
[2021-11-03] MEDS ORDERED: ACETAMINOPHEN 325 MG TAB PO PRN (22:49)
[2021-11-03] MEDS ORDERED: PHARMACIST DISCHARGE MED REC CONSULT PRN (22:49)
[2021-11-03] MEDS ORDERED: DEXTROSE 50% 50 ML SYRINGE IV PRN (22:49)
[2021-11-03] MEDS ORDERED: GLUCAGON FOR INJ 1 MG VIAL SQ PRN (22:49)
[2021-11-03] MEDS ORDERED: CARBOHYDRATES FOR HYPOGLYCEMIA PO PRN (22:49)
[2021-11-03] MEDS ORDERED: GADOBUTROL 65ML VIAL IV ONE (23:46)
[2021-11-04] MEDS: PANTOprazole 40 MG TAB PO SCH ×2 (00:05→08:30)
[2021-11-04] MEDS: INSULIN GLARGINE SOLOSTAR 100 UNITS/ML 3 ML PEN SC SCH ×2 (01:08→08:33)
[2021-11-04 06:13] LABS: Basophils # (auto) 0.03 K/uL (0-0.2); Basophils % (auto) 0.5 %; Eosinophils % (auto) 5.2 %; Hematocrit (blood only) 38.5 % (42-52); Hemoglobin 13.3 g/dL (14.0-18.0); Immature Granulocytes # (auto) 0.02 K/uL (0.00-0.02); Immature Granulocytes % (auto) 0.3 %; Lymphocytes # (auto) 1.43 K/uL (1.2-3.4); Mean Corpuscular Hemoglobin 31.7 pg (25-34); Mean Corpuscular Hgb Conc 34.5 g/dL (32-36); Mean Corpuscular Volume 91.9 fL (80-100); Mean Platelet Volume 12.4 fL (7.4-10.4); Monocytes # (auto) 0.66 K/uL (0.11-0.59); Monocytes % (auto) 11.5 %; Neutrophils # (auto) 3.28 K/uL (1.4-6.5); Neutrophils % (auto) 57.5 %; Platelet Count 184 K/uL (130-400); RDW Standard Deviation 46.8 fL (36.4-46.3); Red Blood Count 4.19 M/uL (4.7-6.1); White Blood Count 5.72 K/uL (4.8-10.8)
[2021-11-04 06:40] LABS: BUN Creatinine Ratio 26.5 (10-20); Calcium 8.8 mg/dl (8.5-10.1); Chol HDL Ratio 4.8 (0-5); Creatinine Clr Calc Pharmacy 91.4 ml/min; Est GFR (African American) 101.9 ml/min; Est GFR (Non-African American) 87.9 ml/min; Potassium 3.6 mmol/L (3.5-5.1)
[2021-11-04 06:45] LABS: Appearance Urine Clear (Clear); Bilirubin Urine 1+ (Negative); Blood Urine Negative (Negative); Color Urine Dark Yellow; Glucose Urine UA 2+ (Negative); Ketones Urine Negative (Negative); Leukocyte Esterase Urine Negative (Negative); Nitrite Urine Negative (Negative); Protein Urine Negative (Negative); Specific Gravity Urine > 1.045 (1.000-1.030); Urobilinogen Urine Negative (Negative)
--- NOTE | 2021-11-04 07:42 | Magnetic Resonance Report ---
MRI OF THE BRAIN WITHOUT AND WITH IV CONTRAST CLINICAL HISTORY: ?CVA. Slurred speech. COMPARISON STUDY: Head CT and CTA of the head November 03, 2021. TECHNIQUE: Utilizing a 1.5 Yanelis magnet and dedicated coil, multiplanar, multiecho imaging of the br ain was performed pre and postcontrast administration. IV administration of 9.5 mL of Gadavist contr ast was uneventful. FINDINGS: There is a 1.6 x 0.6 cm focus of restricted diffusion within the posterior left frontal lob e, within the centrum semiovale. This represents an acute infarct. There is no mass effect. There is no acute hemorrhage. Mild atrophy is noted. Ventricular system is unremarkable. Basal cisterns are pa tent. No extra-axial collections present. No intracranial mass or pathologic enhancement is present. Flow-voids for the major intracranial vessels are present. Several old infarcts within the bilateral centrum semiovale are present. White matter T2 hyperintense foci represent small vessel disease. Calv arial signal is normal. There are postoperative findings within the sinuses. Small amount of fluid wi thin the inferior left mastoid air cells is present. IMPRESSION: 1. 1.6 x 0.6 cm acute infarct within the posterior left frontal lobe. No mass effect. No acute hemorr radhika. 2. Several small old infarcts and extensive small vessel disease. 3. No intracranial mass or pathologic enhancement. ACT 112: Negative or not required by law. Electronically signed by: Gaurav Renteria M.D. 11/04/2021 7:41 AM
[2021-11-04 08:09] LABS: Estimated Average Glucose 226 mg/dl; Hemoglobin A1C 9.5 % (4.5-5.6)
[2021-11-04] MEDS ORDERED: ATORVASTATIN 40 MG TAB PO SCH ×2 (09:00)
[2021-11-04] MEDS ORDERED: CLOPIDOGREL BISULFATE 75 MG TAB PO SCH (09:00)
[2021-11-04] MEDS ORDERED: FAMOTIDINE 40 MG TABLET PO SCH (09:00)
[2021-11-04] MEDS ORDERED: ASPIRIN 81 MG ECTAB PO SCH (09:00)
[2021-11-04] MEDS ORDERED: ATENOLOL 50 MG TABLET PO SCH (09:00)
[2021-11-04] MEDS ORDERED: amLODIPine BESYLATE 5 MG TAB PO SCH (09:00)
[2021-11-04] MEDS ORDERED: TAMSULOSIN HCL 0.4 MG CAP PO SCH (09:00)
[2021-11-04] MEDS ORDERED: LOSARTAN POTASSIUM 50 MG TAB PO SCH (09:00)
[2021-11-04] MEDS: INSULIN ASPART PER UNIT SC SCH ×2 (09:15→13:22)
--- NOTE | 2021-11-04 09:30 | Neurology Consultation ---
Date of Consultation November 04, 2021 Assessment & Plan (1) Acute ischemic stroke: 71-year-old left-handed male with acute ischemic stroke to the left frontal lobe, presenting with word finding difficulty and dysarthria. Patient does not have a significant aphasia at this time although he does exhibit some speech hesitancy/disfluency as well as mild associated dysarthria. He does not have an associated facial droop or hemiparesis. He does have some distal sensory loss which is probably related to his history of diabetes mellitus and associated diabetic peripheral neuropathy. His diabetes does appear to be suboptimally controlled given his recent hemoglobin A1c. No significant vascu lar lesion identified on CT angiography of the head and neck. Follow-up with results of transthoracic echocardiogram. Consider obtaining 30-day mobile cardiac outpatient telemetry. Agree with addition of clopidogrel to patient's medication regimen. Would recommend dual antiplatelet therapy for 3 weeks, followed by transition to monotherapy, clopidogrel 75 mg/day. Agree with increasing patient's dosage of atorvastatin to 80 mg/day. Consultations with PT/OT/speech therapy. Consider outpatient EMG/nerve conduction study to further evaluate probable diabetic peripheral neuropathy. Patient will need to follow-up with his PCP for ongoing management of his diabetes, hypertension, and dyslipidemia. History of Present Illness Reason for Consultation: stroke Requesting Physician: Negar Suazo DO Attending Physician: Mann Castorena MD History of Present Illness The patient is a 71-year-old left handed male with a chief complaint of word finding difficulty and slurred speech that began acutely 3 days ago while driving home with his spouse from [place]. His speech difficulty has modestly improved since onset. He denies experiencing any associated headache, vision disturbance, facial droop, or focal weakness of the limbs. As his symptoms had persisted, he decided to contact his PCP yesterday. He was told to present to the emergency department for more immediate evaluation given concern for possible stroke. The patient denies a prior history of stroke or TIA although his past medical history is notable for diabetes mellitus, hypertension, dy slipidemia, coronary artery disease status post CABG, and sleep apnea. He is a non-smoker. He takes aspirin 81 mg/day as well as atorvastatin 40 mg/day. His blood pressure has been modestly elevated. CT angiography of the head and neck was negative for hemorrhage or vascular lesion. A follow-up brain MRI revealed a 1.6 x 0.6 cm acute infarct within the posterior left frontal lobe as well as s everal chronic infarcts, notably within both thalami and the bilateral subcortical periventricular regions. Plavix has been started. His atorvastatin dose has been increased to 80 mg/day. Allergies Allergy/AdvReac Type Severity Reaction Status Date / Time Penicillins Allergy Unknown Unknown Verified 11/03/21 19:06 morphine AdvReac Mild GI upset Verified 11/03/21 19:06 Home Medications Medication Instructions Recorded Confirmed Type aspirin 81 mg tablet,delayed 81 mg PO QAM 09/15/18 11/03/21 History release ibuprofen 200 mg tablet 200 mg PO QID PRN 09/15/18 11/03/21 History diclofenac sodium 1 % topical gel 2 g TOPICAL QID PRN #100 g 02/06/20 11/03/21 Rx sildenafil 100 mg tablet 100 mg PO DAILY PRN #10 tab 01/07/21 11/03/21 Rx atenolol 50 mg tablet 50 mg PO DAILY #90 tab 04/25/21 11/03/21 Rx amlodipine 10 mg tablet 10 mg PO DAILY #90 tab 09/11/21 11/03/21 Rx atorvastatin 40 mg tablet 40 mg PO DAILY #90 tab 09/11/21 11/03/21 Rx famotidine 40 mg tablet 40 mg PO DAILY #90 tab 09/11/21 11/03/21 Rx losartan 50 mg tablet 50 mg PO DAILY #90 tab 09/11/21 11/03/21 Rx pantoprazole 40 mg tablet,delayed 40 mg PO BID #180 tab 09/11/21 11/03/21 Rx release tamsulosin 0.4 mg capsule (Flomax) 0.4 mg PO DAILY #90 cap 09/11/21 11/03/21 Rx gabapentin 100 mg capsule 200 mg PO HS 11/03/21 11/03/21 History metformin 500 mg tablet,extended 500 mg PO BID 11/03/21 11/03/21 History release 24 hr Patient History Medical History (Updated 11/04/21 @ 09:22 by Jeffrey Bauman MD) Aortic insufficiency BPH (benign prostatic hyperplasia) CAD, multiple vessel Delayed gastric emptying Diabetes mellitus Hyperlipidemia Hypertension Mitral regurgitation Sleep apnea does not use CPAP Surgical History (Updated 11/03/21 @ 23:58 by Negar Suazo DO) History of bilateral cataract extraction History of colonoscopy History of coronary artery bypass graft History of coronary artery bypass graft x 2 2017 @ [facility] – [place]--follows with Dr. Chavis History of esophagogastroduodenoscopy (EGD) History of Toyin fundoplication History of open reduction and internal fixation (ORIF) procedure left ankle--hardware removed History of repair of hiatal hernia History of tonsillectomy History of tooth extraction History of umbilical hernia repair S/P CABG (coronary artery bypass graft) Family History Sister Breast cancer Other No family history of adverse response to anesthesia Denies family history of Ovarian cancer Prostate cancer Myocardial infarction Colorectal cancer Social History Smoking Status: Never smoker Second Hand Exposure: No; Hx Alcohol Use: No Hx Substance Use: No Preferred Language: Nepali Communication Ability: Effective Visual Impairment: No Limitations Hearing Ability: Normal Outpatient Scheduler Required: No Beliefs That Will Affect Care: None marital status: / Current Living Situation: Alone current occupational status: retired How many Children do You have: 2 Feels Safe at Home: Yes Childhood Exposure to Second-Hand Smoke: Yes caffeine: Yes Dental Care, Regularly: Yes Physical Activity Frequency: Daily Seatbelt Use: always Sunscreen Use: No Assistive Devices: Glasses Review of Systems Constitutional: no fever and no chills Eyes: no blind spots and no diplopia Ear, Nose, Mouth, Throat: no ear pain and no hearing loss Respiratory: no cough and no dyspnea Cardiovascular: no chest pain and no palpitations Gastrointestinal: no constipation and no diarrhea/loose stools Genitourinary: no urinary incontinence or no urinary urgency Musculoskeletal: no muscle weakness and no muscle atrophy Integumentary: no rash and no lesions Neurologic: as per Subjective / HPI; no gait abnormality, no localized weakness, no loss of sensation, no tremor(s), no headache(s) and no memory loss Psychiatric: no behavioral changes, no depression, no abnormal sleep pattern and no anxiety Hematologic / Lymphatic: no easy bruising and no lymphadenopathy Exam (Neuro) Constitutional: well developed and well nourished; no acute distress Eyes: normal visual guzman by confrontation, PERRL, normal accommodation and EOM intact bilaterally; no fundoscopic abnormality, no nystagmus and no papilledema Cardiovascular: Vessels: normal carotid upstroke; no carotid bruit Neurologic: Oriented to:: Person, Place and Time Memory: Short Term Intact and Remote Intact Attention: Span Intact and Concentration Intact Language: Naming Objects and Repeating Phrases Speech Fluency: Dysarthria (mild) and Dysfluency (mild) Speech Aphasia: negative Aphasia (able to name and repeat) Fund of Knowledge: Current Events, Past History and Vocabulary Cranial Nerves: Normal II (Visual guzman full to confrontation, visual acuity normal), III, IV, (Pupils equal round reactive to light and accommodation, eye movements normal), V (Facial sensation intact), VII (There is no facial droop or weakness), VIII (Hearing intact), IX, X (Palate elevates to midline), XI (Shoulder shrug intact) and XII (Tongue protrudes to midline) Motor Strength: Normal Lower Extremities and Normal Upper Extremities; negative Pronator Drift Motor Tone: Normal Lower Extremities and Normal Upper Extremities Muscle Bulk/Involuntary Movements: No Involuntary Movements; negative Muscle Atrophy Sensation: Light Touch Intact and Proprioception Intact; negative Pain/Temperature Intact or Vibration Intact Coordination: Normal; negative Limited Balance, Dysdiadochokinesia, Finger-Nose Abnormal or Heel-Velázquez Abnormal Deep Tendon Reflexes: Rt Triceps: 2+, Lt Triceps: 2+, Rt Biceps: 2+, Lt Biceps: 2+, Rt Brachioradialis: 2+, Lt Brachioradialis: 2+, Rt Patellar: 2+, Lt Patellar: 2+, Rt Ankle: 1+ and Lt Ankle: 1+ Special Tests: negative Babinski Present Details: gait not tested in context of patients current neuro status Results & Data ([facility]) Vital Signs (Past 12 Hours) Vital Signs Pulse Resp BP Pulse Ox 11/04/21 08:00 53 L 18 158/89 H 96 11/04/21 04:02 53 L 20 118/74 98 11/03/21 22:49 55 L 20 147/89 H 96 Laboratory Results WBC 5.72, hemoglobin 13.3, hematocrit 38.5, MCV 91.9, platelet count 184, sodium 136, potassium 3.6, BUN 22, creatinine 0.83, glucose 185, hemoglobin A1c 9.5, AST 17, ALT 25, ammonia 40, triglycerides 127, cholesterol 169, LDL 109, VLDL 25, HDL [address] of the head, CT angiography of the head and neck, and brain MRI are as desc ribed in the history of present illness. I reviewed the images as well as the radiologist's interpretation of these tests. Electrocardiogram reveals sinus bradycardia, incomplete right bundle branch block, 58 bpm. Coding Level of Care Code 74670 Initial In Care Lvl 3 Diagnoses Acute ischemic stroke I63.9
--- NOTE | 2021-11-04 09:34 | Hospitalist Progress Note ---
Date of Service November 04, 2021 Assessment & Plan (1) Slurred speech: Plan: ischemic stroke -MRI showed frontal lobe ischemic stroke; CT head and CTA head/neck showed no acute pathology -Delayed presentation disqualified him from tPA -Neuro consult reviewed/appreciated -NIHSS daily, Neuro checks per protocol -Optimize control of HTN, DM2, hyperlipidemia -Hgb A1C 9.5% -Continue Atorvastatin 80mg po daily (increased from 40mg) -DAPT for 3 weeks Continue ASA 81mg po daily + add Plavix 75mg po daily Then keep Plavix thereafter -echo with bubble study pending -PT/OT and Speech evaluations appreciated (2) CAD, multiple vessel: Plan: Chronic. Patient denies chest pain -Continue ASA 81mg po daily -Continue Atenolol 50mg po daily -Continue Atorvastatin 80mg (up from 40mg) po daily -Continue Losartan 50mg po daily (3) Hypertension: Plan: Blood pressure mildly elevated during admission. Patient's symptoms began >48 hours ago. Most likely does not require permissive hypertension at this time -Continue Atenolol, Losartan, Amlodipine w/ HR parameters for atenolol -Continue to monitor blood pressure (4) BPH (benign prostatic hyperplasia): Plan: Chronic. Stable -Continue Flomax 0.4mg daily -Monitor UOP (5) Diabetes mellitus: Plan: -Glucose in ED was 265 -Hold Metformin -HgbA1C 9.5% -Lantus 5u BID with carb correction after meals -Goal blood sugar 100 - 140 -Likely a good candidate for Semaglutide given his needle aversion, mortality benefits, and potential for weight control (6) Hyperlipidemia: Plan: Chronic -Increase atorvastatin from 40mg to 80mg, with goal of LDL < 70 (7) GERD (gastroesophageal reflux disease): Plan: Chronic -Continue home medication, Famotidine 40mg po daily and Protonix BID (8) Sleep apnea: Plan: Patient does not use CPAP Plan: FENGI - Heart healthy diet as tolerated with aspiration precautions Ppx - SCDs Code - Full per discussion with patient Dispo - Admit to medical with telemetry Admission and Anticipated Discharge Date Admission Date: November 03, 2021 Mark Bentley is a 71 y/o male with history of DM2, HTN, hyperlipidemia, CAD s/p CABG X2, and JORDY presenting to the ED on 11/03 with slurred speech that began on 11/01. No issues with swallowing liquids/solids and has had no choking. His symptoms have been improving over time. There was no reported history of facial droop, extremity weakness, headache, SOB, or trauma. No known history of prior CVA. ED workup included -CT head and CTA Head/Neck did not show bleeds or other acute pathology -EKG, CXR, cardiac enzymes, CBC were WNL except: -Glucose elevated at 265 Today 11/04: No acute distress or complaints, reports that his slurred speech is improving but still noticeable to him. In the weeks leading up to his slurred speech there were no changes to his health except for developing a cold after going on a cruise in early October 2021; he was negative for COVID. He regularly sees his PCP for his chronic medical conditions but has trouble taking his multiple pills every day and said he likely does not take all of them as prescribed. He consumes 6 beers/week and has a remote smoking history in the . No SOB, chest pain, FLORES, vision/hearing changes, abdominal pain. Review of Systems Review of Systems: All systems reviewed & are unremarkable except as noted in HPI & below Physical Exam Constitutional: WD/WN, vitals as above Eyes: PERRL, conjunctivae normal, anicteric sclerae Respiratory: no conversational dyspnea, normal respiratory effort Cardiovascular: no LE edema, calf pain, swelling or redness Gastrointestinal (Abdomen): no pain to palpation in all 4 quadrants Neurologic: CN's II-XI intact bilaterally, deep tendon reflexes 2+ bilaterally and moves all extremities Speech / Cognition: + abnormal speech Cranial Nerves: PERRL, EOM intact bilaterally, normal facial strength, tongue midline, normal hearing, able to rotate head bilaterally, able to elevate shoulders bilaterally and symmetric palate elevation some slurred speech but I had no issues understanding him Results & Data Results & Data ([facility]) Vital Signs (Past 12 Hours) Vital Signs Pulse Resp BP Pulse Ox 11/04/21 08:00 53 L 18 158/89 H 96 11/04/21 04:02 53 L 20 118/74 98 11/03/21 22:49 55 L 20 147/89 H 96 Laboratory Results 11/04/21 11/04/21 11/04/21 08:26 06:15 05:55 WBC RBC Hgb POC Hgb Hct POC Hct MCV MCH MCHC RDW Std Deviation RDW Coeff of Marce Plt Count MPV Immature Gran % (Auto) Neut % (Auto) Lymph % (Auto) [place] % (Auto) Eos % (Auto) Baso % (Auto) Neut # (Auto) Lymph # (Auto) [place] # (Auto) Eos # (Auto) Baso # (Auto) Immature Gran # (Auto) Absolute Nucleated RBC Nucleated RBC % (auto) PT INR APTT PTT Ratio POC Sodium Sodium POC Potassium Potassium POC Chloride Chloride Carbon Dioxide POC Total CO2 Anion Gap POC Anion Gap POC BUN BUN Creatinine POC Creatinine Est Cr Clr Drug Dosing Est GFR ( Amer) Est GFR (Non-Af Amer) BUN/Creatinine Ratio Glucose POC Glucose 176 H POC Glucose (other) Estimat Average Glucose 226 Hemoglobin A1c 9.5 H Calcium POC Ioniz Calcium Coby Magnesium Total Bilirubin AST ALT Alkaline Phosphatase Ammonia Troponin I High Sens Total Protein Albumin Globulin Albumin/Globulin Ratio Triglycerides Cholesterol LDL Cholesterol, Calc VLDL Cholesterol, Calc HDL Cholesterol Cholesterol/HDL Ratio Urine Color Dark Yellow Urine Appearance Clear Urine pH 5.0 Ur Specific [place] > 1.045 H Urine Protein Negative Urine Glucose (UA) 2+ H Urine Ketones Negative Urine Blood Negative Urine Nitrite Negative Urine Bilirubin 1+ H Urine Urobilinogen Negative Ur Leukocyte Esterase Negative SARS-CoV-2, RNA, NAAT 11/04/21 11/04/21 11/03/21 05:55 05:55 19:32 WBC 5.72 RBC 4.19 L Hgb 13.3 L POC Hgb Hct 38.5 L POC Hct MCV 91.9 MCH 31.7 MCHC 34.5 RDW Std Deviation 46.8 H RDW Coeff of Marce 14.0 Plt Count 184 MPV 12.4 H Immature Gran % (Auto) 0.3 Neut % (Auto) 57.5 Lymph % (Auto) 25.0 [place] % (Auto) 11.5 Eos % (Auto) 5.2 Baso % (Auto) 0.5 Neut # (Auto) 3.28 Lymph # (Auto) 1.43 [place] # (Auto) 0.66 H Eos # (Auto) 0.30 Baso # (Auto) 0.03 Immature Gran # (Auto) 0.02 Absolute Nucleated RBC Nucleated RBC % (auto) PT INR APTT PTT Ratio POC Sodium Sodium 136 POC Potassium Potassium 3.6 POC Chloride Chloride 103 Carbon Dioxide 26 POC Total CO2 Anion Gap 7 POC Anion Gap POC BUN BUN 22 Creatinine 0.83 POC Creatinine Est Cr Clr Drug Dosing 91.4 Est GFR ( Amer) 101.9 Est GFR (Non-Af Amer) 87.9 BUN/Creatinine Ratio 26.5 H Glucose 185 H POC Glucose POC Glucose (other) Estimat Average Glucose Hemoglobin A1c Calcium 8.8 POC Ioniz Calcium Coby Magnesium Total Bilirubin AST ALT Alkaline Phosphatase Ammonia Troponin I High Sens Total Protein Albumin Globulin Albumin/Globulin Ratio Triglycerides 127 Cholesterol 169 LDL Cholesterol, Calc 109 VLDL Cholesterol, Calc 25 HDL Cholesterol 35 Cholesterol/HDL Ratio 4.8 Urine Color Urine Appearance Urine pH Ur Specific [place] Urine Protein Urine Glucose (UA) Urine Ketones Urine Blood Urine Nitrite Urine Bilirubin Urine Urobilinogen Ur Leukocyte Esterase SARS-CoV-2, RNA, NAAT NEGATIVE 11/03/21 11/03/21 11/03/21 19:04 19:01 18:51 WBC RBC Hgb POC Hgb 14.6 Hct POC Hct 43 MCV MCH MCHC RDW Std Deviation RDW Coeff of Marce Plt Count MPV Immature Gran % (Auto) Neut % (Auto) Lymph % (Auto) [place] % (Auto) Eos % (Auto) Baso % (Auto) Neut # (Auto) Lymph # (Auto) [place] # (Auto) Eos # (Auto) Baso # (Auto) Immature Gran # (Auto) Absolute Nucleated RBC Nucleated RBC % (auto) PT INR APTT PTT Ratio POC Sodium 138 Sodium 135 L POC Potassium 4.1 Potassium 4.0 POC Chloride 102 Chloride 102 Carbon Dioxide 25 POC Total CO2 24 Anion Gap 8 POC Anion Gap 17.0 POC BUN 22 H BUN 24 H Creatinine 1.01 POC Creatinine 0.8 Est Cr Clr Drug Dosing 75.1 Est GFR ( Amer) 85.7 Est GFR (Non-Af Amer) 74.0 BUN/Creatinine Ratio 23.8 H Glucose 265 H POC Glucose POC Glucose (other) 276 H Estimat Average Glucose Hemoglobin A1c Calcium 10.0 POC Ioniz Calcium Coby 1.27 Magnesium 2.2 Total Bilirubin 1.0 AST 17 ALT 25 Alkaline Phosphatase 70 Ammonia 40.0 Troponin I High Sens 7.9 Total Protein 7.7 Albumin 4.6 Globulin 3.1 Albumin/Globulin Ratio 1.5 Triglycerides Cholesterol LDL Cholesterol, Calc VLDL Cholesterol, Calc HDL Cholesterol Cholesterol/HDL Ratio Urine Color Urine Appearance Urine pH Ur Specific [place] Urine Protein Urine Glucose (UA) Urine Ketones Urine Blood Urine Nitrite Urine Bilirubin Urine Urobilinogen Ur Leukocyte Esterase SARS-CoV-2, RNA, NAAT 11/03/21 11/03/21 11/03/21 18:51 18:51 18:51 WBC 7.28 RBC 4.64 L Hgb 14.2 POC Hgb Hct 41.9 L POC Hct MCV 90.3 MCH 30.6 MCHC 33.9 RDW Std Deviation 45.4 RDW Coeff of Marce 14.0 Plt Count 224 MPV 12.0 H Immature Gran % (Auto) 0.4 Neut % (Auto) 60.3 Lymph % (Auto) 24.7 [place] % (Auto) 10.9 Eos % (Auto) 3.3 Baso % (Auto) 0.4 Neut # (Auto) 4.39 Lymph # (Auto) 1.80 [place] # (Auto) 0.79 H Eos # (Auto) 0.24 Baso # (Auto) 0.03 Immature Gran # (Auto) 0.03 H Absolute Nucleated RBC 0.04 H Nucleated RBC % (auto) 0.5 PT 10.6 INR 1.0 APTT 28.6 PTT Ratio 1.0 POC Sodium Sodium POC Potassium Potassium POC Chloride Chloride Carbon Dioxide POC Total CO2 Anion Gap POC Anion Gap POC BUN BUN Creatinine POC Creatinine Est Cr Clr Drug Dosing Est GFR ( Amer) Est GFR (Non-Af Amer) BUN/Creatinine Ratio Glucose POC Glucose 266 H POC Glucose (other) Estimat Average Glucose Hemoglobin A1c Calcium POC Ioniz Calcium Coby Magnesium Total Bilirubin AST ALT Alkaline Phosphatase Ammonia Troponin I High Sens Total Protein Albumin Globulin Albumin/Globulin Ratio Triglycerides Cholesterol LDL Cholesterol, Calc VLDL Cholesterol, Calc HDL Cholesterol Cholesterol/HDL Ratio Urine Color Urine Appearance Urine pH Ur Specific [place] Urine Protein Urine Glucose (UA) Urine Ketones Urine Blood Urine Nitrite Urine Bilirubin Urine Urobilinogen Ur Leukocyte Esterase SARS-CoV-2, RNA, NAAT
--- NOTE | 2021-11-04 12:18 | Discharge Summary ---
Date of Service November 04, 2021 Admission HPI Per Admitting Provider Eber Bentley is a pleasant 71yo male with history of DM, HTN, HLP presenting with slurred speech which began approximately 48 hours ago. Patient was in his usual state of health when he developed sudden onset of slurred speech on the morning of 11/01/21 around 10:00 AM. He denies additional complaints at that time - specifically denies headache, visual disturbance, numbness, tingling, weakness. No ambulatory difficulties or confusion. Patient's speech has been slowly improving over the last 2 days. Still slower than usual and slightly slurred. His friend advised him to come to the ER. Patient with no additional complaints at this time. Specifically denies fever, chills, cough, SOB, FLORES, chest pain, palpitations, abdominal pain, nausea, vomiting, diarrhea or constipation. Workup in the ER with CT of the head with is negative for acute hemorrhage as well as unremarkable CTA Head/Neck. CT of the head did reveal areas of chronic infarcts in the thalamus and periventricular mathias matter. Patient with no prior knowledge of CVA. ER Course: imaging obtained Admission Exam Per Admitting Provider General: patient resting comfortably, NAD, non-toxic in appearance, AA&O x 4 Skin: warm, dry, intact, no rashes or lesions HEENT: NC/AT, PERRL, EOMI, anicteric sclera, conjunctiva without injection, external ear normal to inspection and nontender, nares patent, moist mucus membranes, dentition intact, no oropharyngeal lesions, neck supple, trachea midline, no LAD, no thyromegaly, no JVD Heart: +S1/S2, regular, no m/r/g Lungs: equal air entry bilaterally, no rales/rhonchi/wheezes Abd: +BS, soft, NT/ND, no masses/organomegaly/ascites Ext: warm, 2+ pulses in UE/LE bilaterally, no clubbing/cyanosis or edema Neuro: AA&O x 4, speech is slow and slightly slurred, no facial droop, CN II - XII grossly normal, sensation to light touch intact in UE/LE bilaterally, MS 5/5 in UE/LE bilaterally, [id number] and [id number] normal, no drift Negar Suazo D.O. Principal Diagnosis stroke Discharge Exam Physical Exam Constitutional: WD/WN, vitals as above Eyes: PERRL, conjunctivae normal, anicteric sclerae Respiratory: no conversational dyspnea, normal respiratory effort Cardiovascular: normal S1/S2, no M/R/G, no LE edema, calf pain, swelling or redness Gastrointestinal (Abdomen): no pain to palpation in all 4 quadrants Neurologic: CN's II-XI intact bilaterally, deep tendon reflexes 2+ bilaterally and moves all extremities Speech / Cognition: + abnormal speech Cranial Nerves: PERRL, EOM intact bilaterally, normal facial strength, tongue deviated slightly to the right, normal hearing, able to rotate head bilaterally, able to elevate shoulders bilaterally and symmetric palate elevation some slurred speech but coherent/linear thought process and I had no issues understanding him Discharge Data Allergies Allergy/AdvReac Type Severity Reaction Status Date / Time Penicillins Allergy Unknown Unknown Verified 11/03/21 19:06 morphine AdvReac Mild GI upset Verified 11/03/21 19:06 Consultations 11/03/21 19:53 ED Decision to Admit Stat 11/03/21 22:49 Consult Neurology Routine Ordered Studies 11/03/21 18:58 CT angio head w con Stat CT angio neck with con Stat CT head/brain wo con Stat 11/03/21 22:49 MR brain wo/w con Routine Hospital Course (1) Slurred speech: ischemic stroke - etiology likely due to suboptimally controlled DM2, HTN, HLD resulting from patient's noncompliance [facility] home medication regimen - MRI showed frontal lobe ischemic stroke 1.6 x 0.6 cm as well as evidence of prior CVA (asymptomatic per patient) -CT head and CTA head/neck showed no acute pathology -Delayed presentation disqualified him from tPA -NIHSS daily, Neuro checks per protocol -Hgb A1C 9.5% -Increased Atorvastatin 80mg po daily (increased from 40mg) -Neuro consulted; recommended DAPT for 3 weeks (Until November 25, 2021) before transition to Plavix monotherapy -echo with bubble study pending on discharge (2) Diabetes mellitus: -Increased to metformin 1000 mg po bid -HgbA1C 9.5%; Glucose in ED was 265 -Likely a good candidate for outpatient initiation of SGLT2 inhibitor - would favor this over GLP-1 in the setting of his delayed gastric emptying (3) CAD, multiple vessel: Chronic. Patient denies chest pain -Continue ASA 81mg po daily -Continue Atenolol 50mg po daily -Increased Atorvastatin to 80 mg po daily -Continue Losartan 50mg po daily (4) Hypertension: Blood pressure mildly elevated during admission. Most likely does not require permissive hypertension at this time -Continue Atenolol, Amlodipine - consider increase of Losartan to 100 mg if BP remains above goal -Continue to monitor blood pressure (5) BPH (benign prostatic hyperplasia): Chronic. Stable -Continue Flomax 0.4mg daily (6) Hyperlipidemia: Chronic -Increase atorvastatin from 40mg to 80mg, with goal of LDL < 70 (7) GERD (gastroesophageal reflux disease): Chronic -Continue home medication, Famotidine 40mg po daily and Protonix BID (8) Sleep apnea: Patient does not use CPAP at home Total Time Total Time Spent Total Time Spent (In Minutes): see attending attestation Discharge Plan Discharge Items Patient Disposition: Home - Self-Care Reason For Visit: SLURRED SPEECH Discharge Diagnosis: Left Frontal CVA Condition on Discharge: Good Activity: Per Instructions section Non-emergency contact: Primary Care Provider and Neurologist Call non-emergency contact if: you have any medication questions and your symptoms worsen Follow-up/Referrals: Lori Ponce CRNP [Primary Care Provider] - (please schedule f/u within 1 week of discharge) Diet: Carb Consistent or DM2 Addtl Attending Provider Instructions: You were admitted to [facility] from 11/03 - 11/04 for acute-onset slurred s peech and overall difficulty speaking. An MRI was done which showed an acute stroke of the left front lobe (left side of the brain) which is likely the cause of your symptoms. Thankfully your speech difficulty is already improved and hopefully will continue to improve. You will be discharged in improved condition on 11/04. You were started on a blood thinner called Plavix - please continue to take this medication every day. You will continue to take your baby Aspirin every day for the next 3 weeks ONLY - then please stop this medication. Your Atorvastatin was increased to a maximum dose of 80mg to help with further stroke prevention - please taking this medication daily. Your A1c was also high at 9.5. Your diabetes is not adequately controlled, and you will need to speak with your PCP about further management of Diabetes. This is very important for preventing further strokes. Note: It is very important that you avoid foods and drinks that make your sugar high and worsen your diabetes. Please stop drinking alcohol and soda, and please avoid any sugary foods such as desserts/sweets. Please continue taking your other medications as prescribed. We hope you continue to feel better. Addtl Food Technology Teacher Provider Instructions: Risk Factors for Stroke: You can reduce your chances of stroke by working with your medical provider to adopt a healthy lifestyle. Some specific ways to lower your chance of stroke are: * If you are a smoker, now is the time to stop smoking cigarettes * If you are diabetic, improve the control of your blood sugars * Avoid excessive amounts of alcohol * Control high blood pressure * Lose weight if you are overweight * Be sure to lead an active lifestyle * Eat a healthy diet low in salt, cholesterol and fat You should know about other risk factors for stroke that you are unable to control. These include: * Age 55 years or older * Male gender * Certain racial groups: , or / * Family History of Stroke, Mini stroke or Heart Attack * Sickle Cell Disease Follow Up: It is important for you to keep your follow up appointments with your medical provider. Who to Call and When: Medical Emergencies: Call 911 immediately if you experience any of the following warning signs and symptoms of Stroke: * Sudden numbness or weakness of the face, arm or leg, especially on one side of the body * Sudden confusion, trouble speaking or understanding * Sudden trouble seeing in one or both eyes * Sudden trouble walking, dizziness, loss of balance or coordination * Sudden severe headache with no cause Do not delay calling 911 if you experience any warning signs or symptoms of a stroke. Delay in seeking medical attention may affect what treatments can be given to you. . Pending Studies at Discharge: No Stand-Alone Forms: Medications to Prevent Stroke, [facility], Smoking Cessation Medications and DC Order Prescriptions: New clopidogrel 75 mg Tablet 75 mg PO QAM 30 Days Qty: 30 RF: 2 atorvastatin 80 mg tablet 80 mg PO DAILY Qty: 90 RF: 1 metformin 1,000 mg tablet 1,000 mg PO BID 30 Days Qty: 60 RF: 0 Continued sildenafil 100 mg tablet 100 mg PO DAILY PRN (Reason: sexual activity) Qty: 10 RF: 3 atenolol 50 mg tablet 50 mg PO DAILY Qty: 90 RF: 3 amlodipine 10 mg tablet 10 mg PO DAILY Qty: 90 RF: 3 famotidine 40 mg tablet 40 mg PO DAILY Qty: 90 RF: 3 losartan 50 mg tablet 50 mg PO DAILY Qty: 90 RF: 3 pantoprazole 40 mg tablet,delayed release (DR/EC) 40 mg PO BID Qty: 180 RF: 3 tamsulosin [Flomax] 0.4 mg capsule 0.4 mg PO DAILY Qty: 90 RF: 2 diclofenac sodium 1 % gel 2 g topical QID PRN (Reason: knee pain) Qty: 100 RF: 3 ibuprofen 200 mg Tablet 200 mg PO QID PRN (Reason: Pain) RF: 0 gabapentin 100 mg capsule 200 mg PO HS RF: 0 aspirin 81 mg Tablet,Delayed Release (Dr/Ec) 81 mg PO QAM 21 Days Qty: 21 RF: 0 Discontinued atorvastatin 40 mg tablet 40 mg PO DAILY Qty: 90 RF: 3 metformin 500 mg tablet extended release 24 hr 500 mg PO BID RF: 0 Discharge Orders: Discharge Order (Routine); Ordered 11/04/21 Ordered By: Howie Jeffery Admission Data Admit Date/Time: 11/03/21 21:07 Attending Provider: Mann Castorena Admit Provider: Negar Suazo Primary Care Provider: Lori Ponce. Other Providers: Negar Suazo ; Jeffrey Bauman Supervising Physician Co-Signing Physician Notes Attending attestation Pt seen and examined in concert with St. Dr. Anshu Calhoun. In agreement with the documented findings as noted in the resident documentation with any exceptions or additions as noted here. Still having some slurring subjectively, as well as intermittent tongue biting during speech, chewing without reporting any other acute symptoms, speech symptoms subjectively improving. VS reviewed. On examination, S1/S2 nl RRR no MCG. CTAB. Abd NT/ND BS+ve. CNII- XII grossly intact EXCEPT some leftward tongue drift c/w complaint. Ischemic stroke noted on MRI brain - DAPT for 3 wks, then transition to clopidogrel monotherapy. Increased atorvastatin to 80mg. Close outpatient f/u Type 2 diabetes, uncontrolled - DM educator engaged. Details of therapy as noted. Restart metformin as IR so it can be crushed to avoid swallowing difficulties. Avoid GLP-1 2/2 gastric emptying delay. JORDY - does not use a CPAP at home, would strongly recommend initiation/adherence Else see resident/student documentation as noted. Total attending physician time spent on this patient's care on the day of discharge: 40 minutes.
[2021-11-04] MEDS ORDERED: PNEUMOCOCCAL POLYSACCHARIDES 25 MCG/0.5 ML VIAL/SYR IM ONE (12:55)
[2021-11-04] MEDS ORDERED: STROKE PATIENT DISCHARGE STA (14:20)
--- NOTE | 2021-11-04 15:07 | Pharmacy Report ---
Pharmacist Stroke Counseling - Date of Service November 04, 2021 - Scope: Pharmacy has been consulted to provide medication discharge counseling for this patient admitted with ischemic stroke as per the Pharmacist Discharge Counseling for Stroke Patients Protocol. - Medications on Discharge: Home Medications Medication Instructions Recorded Confirmed ibuprofen 200 mg tablet 200 mg PO QID PRN 09/15/18 11/03/21 gabapentin 100 mg capsule 200 mg PO HS 11/03/21 11/03/21 New Rx's Medication Instructions Recorded diclofenac sodium 1 % topical gel 2 g TOPICAL QID PRN #100 g 02/06/20 sildenafil 100 mg tablet 100 mg PO DAILY PRN #10 tab 01/07/21 atenolol 50 mg tablet 50 mg PO DAILY #90 tab 04/25/21 amlodipine 10 mg tablet 10 mg PO DAILY #90 tab 09/11/21 famotidine 40 mg tablet 40 mg PO DAILY #90 tab 09/11/21 losartan 50 mg tablet 50 mg PO DAILY #90 tab 09/11/21 pantoprazole 40 mg tablet,delayed 40 mg PO BID #180 tab 09/11/21 release tamsulosin 0.4 mg capsule (Flomax) 0.4 mg PO DAILY #90 cap 09/11/21 aspirin 81 mg tablet,delayed 81 mg PO QAM 21 Days #21 tab 11/04/21 release atorvastatin 80 mg tablet 80 mg PO DAILY #90 tab 11/04/21 clopidogrel 75 mg tablet 75 mg PO QAM 30 Days #30 tab 11/04/21 metformin 1,000 mg tablet 1,000 mg PO BID 30 Days #60 tab 11/04/21 - Action: The above medications, specifically ones for stroke treatment/prophylaxis, have been reviewed in detail with the patient and/or patient union contract representative(s) prior to discharge. This includes indication, common adverse reactions, drug interactions, and medication administration. Medication counseling has been employed using the teach-back method to ensure understanding. - Outcome: The patient and/or patient union contract representative(s) have demonstrated understanding of the medications. Additional comments: - Discussed medication changes/additions with patient who verbalized understanding - Plavix and aspirin to be continued for 21 days (through 11/24/21), then aspirin to be discontinued. Plavix only thereafter. - Atorvastatin increased from 40 to 80 mg PO daily - Metformin increased from 500-1000 mg PO BIDM Thank you for allowing pharmacy to be involved in the care of this patient. Please call [phone] with any additional questions
--- NOTE | 2021-11-04 19:00 | Electrocardiogram Report ---
Test Reason : Blood Pressure : / mmHG Vent. Rate : 058 BPM Atrial Rate : 058 BPM P-R Int : 194 ms QRS Dur : 094 ms QT Int : 410 ms P-R-T Axes : 039 -21 080 degrees QTc Int : 402 ms Sinus bradycardia Incomplete right bundle branch block Abnormal ECG When compared with ECG of 05-SEP-2017 15:55, Incomplete right bundle branch block is now Present Confirmed by Corby Hood ([id number]) on 11/04/2021 6:59:43 PM Referred By: REFERRED SELF Confirmed By:Rajendra Hood
--- NOTE | 2021-11-04 20:51 | XCELERA ---
[id number]
== END 2021-11-04 15:08 | disposition home or self-care (01) | DRG 66 ==
LOC: ED 18:33 → EDINP 21:07 → SUATTDRO 21:07 → EDINP 23:20

== ENCOUNTER 2023-05-20 07:26 | Observation (INO) ==
--- NOTE | 2023-05-11 14:44 | Anesthesiology Consultation ---
Date of Service May 11, 2023 Assessment & Plan (1) Encounter for pre-operative examination: - check BSG am DOS. - PFO, stroke 10/2021. Upcoming cardiology clearance for scheduled knee replacement 06/10/22. Case discussed in detail with Dr. Kennedy including PFO, stroke and A1c history. He advised relaying PFO and stroke 10/2021 to surgeon's office and inquiring if patient is remaining on Plavix or not, and if to be held if this was approved adjustment to anticoagulation. [place] PCP workload note response to surgeon's office 05/11/23: "let pt know he will need to hold plavix for 5 days prior to urology procedure and restart day after..." - Per tunneling machine operator on 05/11/2023: No known infectious disease contacts, current infectious disease symptoms in past 10 days or COVID positive test result in the past 30 days. Chart Review Chart Review: Acceptable Risk for Surgery and Patient NOT seen in Pre Admission Testing History Surgery Operation Date: 05/20/23 10:50 Proposed Procedures p TURP (Transurethral Resection of the Prostate) - David Monk, Height/Weight Height: 5 ft 9 in Weight: 95.254 kg Allergies Allergy/AdvReac Type Severity Reaction Status Date / Time Penicillins Allergy Unknown Unknown Verified 05/11/23 14:07 morphine AdvReac Mild GI upset Verified 05/11/23 14:07 Medications Home Medications Medication Instructions Recorded Confirmed Last Taken ibuprofen 200 mg tablet 200 mg PO QID PRN Pain 09/15/18 05/11/23 Unknown sildenafil 100 mg tablet 100 mg PO DAILY PRN sexual 01/07/21 05/11/23 Unknown activity #10 tabs blood sugar diagnostic (OneTouch #300 ea 11/05/21 03/11/23 Unknown Verio test strips) lancets 33 gauge (OneTouch Delica #300 ea 11/05/21 05/03/23 Unknown Lancets) clopidogrel 75 mg tablet 75 mg PO QAM 30 days #90 tabs 12/18/21 05/11/23 Unknown metformin 1,000 mg tablet 1,000 mg PO BID 30 days #180 tabs 12/18/21 05/11/23 Unknown pantoprazole 40 mg tablet,delayed 40 mg PO BID #180 tabs 10/05/22 05/11/23 Unknown release gabapentin 100 mg capsule 300 mg (3 x 100 mg) PO HS #270 caps 10/12/22 05/11/23 Unknown amlodipine 10 mg tablet 10 mg PO QAM 05/03/23 05/11/23 Unknown atenolol 50 mg tablet 50 mg PO QAM 05/03/23 05/11/23 Unknown atorvastatin 80 mg tablet 80 mg PO QAM 05/03/23 05/11/23 Unknown dapagliflozin propanediol 5 mg 5 mg PO QAM 05/03/23 05/11/23 Unknown tablet (Farxiga) losartan 50 mg tablet 50 mg PO QAM 05/03/23 05/11/23 Unknown tamsulosin 0.4 mg capsule (Flomax) 0.8 mg PO QAM 05/03/23 05/11/23 Unknown Past Medical History Medical History COVID-19 04/27/23 (home test)- symptom onset 04/23/23 of rhinorrhea, coughing and fatigue which has resolved PFO (patent foramen ovale) Noted on Echo 10/2021 CAD (coronary artery disease) CABG x2 [place]2016[place] [place] [facility] [place] Follows with Dr. Chavis Diabetes mellitus, type 2 GERD (gastroesophageal reflux disease) Poor historian Depression with anxiety Stroke 10/2021- residual speech affected, mild slurring, some memory issues BPH (benign prostatic hyperplasia) Delayed gastric emptying Sleep apnea no device Past Family History Family History Sister Breast cancer Other No family history of adverse response to anesthesia Denies family history of Ovarian cancer Prostate cancer Myocardial infarction Colorectal cancer Past Surgical History Surgical History History of cardiac cath 2017 [facility] [place] [facility] [place] CABG x2 History of Toyin fundoplication 2018, [place] History of open reduction and internal fixation (ORIF) procedure left ankle- hardware removed History of repair of hiatal hernia History of umbilical hernia repair History of colonoscopy History of esophagogastroduodenoscopy (EGD) History of tooth extraction History of tonsillectomy History of bilateral cataract extraction History of coronary artery bypass graft x 2 2016 [place] [place] [facility] [place] Social History Smoking Status: Never smoker Do You Dip or Chew Tobacco: No Hx Alcohol Use: Yes Alcohol type: beer alcohol intake frequency: a few times a week Hx Substance Use: No substance use type: does not use Lab Results Anesthesia Preop Results Results Anesthesia Widget: WBC 6.60 K/ul (4.8-10.8) 05/05/23 Hgb 13.2 g/dl (14.0-18.0) L 05/05/23 Hct 39.5 % (42.0-52.0) L 05/05/23 Plt 206 K/uL (130-400) 05/05/23 Na 138 mmol/L (136-145) 05/05/23 K 4.6 mmol/L (3.5-5.1) 05/05/23 Cl 103 mmol/L (98-107) 05/05/23 CO2 28 mmol/L (21-32) 05/05/23 BUN 19 mg/dl (6-23) 05/05/23 Creat 0.84 mg/dl (0.6-1.4) 05/05/23 Glucose Level 236 mg/dl (70-99(Fasting)) H 05/05/23 Fasting Glucose 271 mg/dl (70-99) H 05/06/23 PT 11.4 Seconds (9.0-12.0) 05/05/23 PTT 30 Seconds (21-31) 05/05/23 INR 1.0 (0.9-1.1) 05/05/23 HA1c 10.8 % (4.5-5.6) H 05/05/23 Urine Color Yellow 05/05/23 Urine Appearance Clear (Clear) 05/05/23 Urine pH 5.0 (4.5-7.5) 05/05/23 Urine Specific [place] 1.034 (1.000-1.030) H 05/05/23 Urine Protein Negative (Negative) 05/05/23 Urine Glucose (UA) 3+ (Negative) H 05/05/23 Urine Ketones Negative (Negative) 05/05/23 Urine Blood Negative (Negative) 05/05/23 Urine Nitrite Negative (Negative) 05/05/23 Urine Bilirubin Negative (Negative) 05/05/23 Urine Urobilinogen Negative (Negative) 05/05/23 Urine Leukocyte Esterase Negative (Negative) 05/05/23 Blood Type O Positive 05/05/23 Antibody Screen NEGATIVE 05/05/23 Testing Electrocardiogram Date: 05/05/23 Sinus bradycardia, rate 59 bpm Incomplete RBBB Chest X-Ray Date: 05/05/23 Cardiac silhouette is enlarged. Prior median sternotomy with CABG. No pneumothorax, pleural effusion, airspace consolidation or overt pulmonary edema. Degenerative changes of the shoulders and spine. IMPRESSION: Cardiomegaly without acute process. Echocardiogram Date: 11/04/21 EF 60-65% Normal LV wall motion Mildly dilated atria PFO Moderate aortic regurgitation Mild mitral regurgitation Stress Test Date: 02/26/20 Negative dobutamine stress echo for myocardial ischemia at [facility] 52% Other Testing Head and neck CTA 11/03/21 1. There is no hemorrhage, mass effect, or evidence of acute territorial ischemia by CT criteria. 2. Unremarkable CT angiogram of the brain. 3. Unremarkable CT angiogram of the neck.
[~2023-05-20 07:26] MED LIST changes: -ASPI81TA28 PO; -ATEN-173 PO; -CLC100 PO; -FRRS300 PO; +LR 15ML/HR IV SCH; -NRV5 PO; -PRT40 PO; +ceFAZolin 2000MG 2,000 MG/15 ML SYR IV SCH
[2023-05-20] MEDS ORDERED: DEXAMETHASONE SOD INJ 4 MG/ML VIAL ONE (07:46)
[2023-05-20] MEDS ORDERED: fentaNYL citrate PF 100 MCG/2 ML VIAL ONE (07:46)
[2023-05-20] MEDS ORDERED: MIDAZOLAM HCL 1 MG/ML 2ML VIAL ONE (07:46)
[2023-05-20] MEDS ORDERED: LIDOCAINE 2% 2 ML VIAL/AMP(20MG/ML) INFIL ONE (07:46)
[2023-05-20] MEDS ORDERED: PROPOFOL IV EMULSION 10 MG/ML 20 ML VIAL IV ONE (07:46)
[2023-05-20] MEDS ORDERED: ONDANSETRON INJ 2 MG/ML 2 ML VIAL ONE (07:46)
[2023-05-20] MEDS ORDERED: KETOROLAC 30 MG/ML VIAL ONE (07:46)
[2023-05-20] MEDS ORDERED: ONDANSETRON INJ 2 MG/ML 2 ML VIAL IV PRN (07:50)
[2023-05-20] MEDS ORDERED: ePHEDrine sulfate 50 MG/ML AMP IV PRN (07:50)
[2023-05-20] MEDS ORDERED: ATROPINE SULFATE 0.1 MG/ML 10ML SYR IV PRN (07:50)
[2023-05-20] MEDS ORDERED: LABETALOL HCL IV 5 MG/ML 20ML IV ONE (08:16)
[2023-05-20] MEDS ORDERED: PHENAZOPYRIDINE HCL 200 MG TAB PO PRN (08:44)
[2023-05-20] MEDS ORDERED: MoRPHine SULFATE 2 MG/ML CARP IV PRN (08:44)
[2023-05-20] MEDS ORDERED: oxyBUTYnin chloride 5 MG TAB PO PRN (08:44)
[2023-05-20] MEDS ORDERED: oxyCODONE/ACETAMINOPHEN 5mg/325mg TAB PO PRN (08:44)
--- NOTE | 2023-05-20 08:44 | History & Physical Bridge Note ---
Date of Service May 20, 2023 History & Physical Bridge Note I have examined the patient, reviewed the History & Physical and in the interval since the performance of the History & Physical I have noted the following changes of clinical significance: no changes noted
--- NOTE | 2023-05-20 10:50 | Operative Report ---
PG Post Operative Report Pre & Post Diagnosis Operation Date: 05/20/23 09:20 Pre-Op Diagnosis: Urinary Frequency, Benign Prostatic Hyperplasia Post-Op Diagnosis: Urinary Frequency, Benign Prostatic Hyperplasia I identified the patient and participated in the time-out.: Yes Procedure Operation Date: 05/20/23 09:20 Actual Procedures p Transurethral Resection of the Prostate(Not Applicable) - David Monk DO Surgeon David Monk, II, DO Firer Kiln None Estimated Blood Loss 10 Findings Consistent with Post-Op Diagnosis Extremely large median lobe with Large Prostate with obstruction. Specimens Prostate adenoma. Drains 24Fr [address] Catheter Anesthesia Type General Complications none Disposition Disposition: Recovery Room Indications Patient with obstruction due to prostate enlargement. Risks and benefits discussed at length. Description of Procedure Patient was consented and brought back to the operating room. Patient was placed under anesthesia in the supine position and moved to the dorsal lithotomy position. Patient was prepped and draped in the regular sterile fashion. A time out was completed. A 30degree Cystoscope was placed into the bladder and the entire bladder was examined. The UO's were identified as well as the bladder neck, trigone, dome, and the other important landmarks. The prostatic urethra and large lobes/adenoma was assessed and the veru and bladder neck identified and area/size was assessed. The resection scope was placed and the fine bipolar loop was selected. The median lobe was found to be extremely large causing major obstruction of the bladder neck. Starting at the 5 and 7 o'clock positions, a channel was created from bladder neck to the veru. Resection was taken down to the capsule fibers. An extensive amount of tissue had to be resected from the median lobe in order to form the channel. Resection that was then taken from the 1 and 11 o'clock position sweeping down to the channel the resection was taken down the capsule fibers as well. All bleeding was controlled. The bladder neck and UOs were monitored throughout the resection process as well as the Kalie. The tissue was intermittently irrigated. All bleeding was controlled with cautery. The tissue was able to be fully resected. The Specimen was removed and sent for analysis. The resection bed and any bleeding areas were fulgurated/cauterized and the entire area inspected. All bleeding was controlled. The bladder was inspected a final time. The bladder was emptied and irrigated. All specimen and debris was removed. The scope was removed with the bladder partially full. A catheter was placed and balloon elevated. This was easily irrigated. The patient was cleaned, aroused from anesthesia, and transferred to the pacu in stable condition having tolerated the procedure well with no complications. I was present and participated in all aspects of the procedure. The patient will be monitored in the PACU until transferred. Will plan to maintain catheter on CBI overnight. Will monitor patient in the hospital with plans for discharge tomorrow. Will maintain catheter for approximately 7 to 10 days with removal in the office and plans for follow-up in approximately 2-3 weeks for pathology I attest to the content of the Intraoperative Record and any orders documented therein. Any exceptions are noted below.
[2023-05-20] MEDS: fentaNYL citrate PF 100 MCG/2 ML VIAL IV PRN ×4 (11:16→11:31)
[2023-05-20 11:45] LABS: Basophils # (auto) 0.05 K/uL (0.00-0.20); Basophils % (auto) 0.7 %; Eosinophils # (auto) 0.25 K/uL (0.00-0.50); Eosinophils % (auto) 3.6 %; Hematocrit (blood only) 32.4 % (42.0-52.0); Immature Granulocytes # (auto) 0.05 K/uL (0.01-0.20); Immature Granulocytes % (auto) 0.7 %; Lymphocytes # (auto) 1.54 K/uL (1.20-3.40); Lymphocytes % (auto) 22.2 %; Mean Corpuscular Hemoglobin 31.2 pg (25.0-34.0); Mean Corpuscular Volume 91.8 fL (80.0-100.0); Mean Platelet Volume 12.4 fL (9.4-12.4); Monocytes % (auto) 8.6 %; Neutrophils # (auto) 4.45 K/uL (1.40-6.50); Neutrophils % (auto) 64.2 %; Platelet Count 167 K/uL (130-400); RDW Coefficient of Variation 13.3 % (11.5-14.5); Red Blood Count 3.53 M/uL (4.70-6.10); White Blood Count 6.94 K/ul (4.8-10.8)
[2023-05-20 12:01] LABS: Calcium 8.2 mg/dl (8.6-10.3); Potassium 4.2 mmol/L (3.5-5.1)
[2023-05-20 12:07] LABS: BUN Creatinine Ratio 26.8 (10-20); Creatinine Clr Calc Pharmacy 90.1 ml/min; Est GFR (African American) 101.7 ml/min; Est GFR (Non-African American) 87.7 ml/min
[2023-05-20] MEDS ORDERED: GLUCOSE 40% GEL 15 GM TUBE PO PRN (14:16)
[2023-05-20] MEDS ORDERED: GLUCAGON FOR INJ 1 MG VIAL SQ PRN (14:16)
[2023-05-20] MEDS ORDERED: GLUCOSE 10 TAB/TUBE PO PRN (14:16)
[2023-05-20] MEDS ORDERED: CARBOHYDRATES FOR HYPOGLYCEMIA PO PRN (14:16)
[2023-05-20] MEDS ORDERED: DEXTROSE 50% 50 ML SYRINGE IV PRN (14:16)
[2023-05-20] MEDS ORDERED: MoRPHine SULFATE 4 MG/ML 1 ML CARP\\VIAL ONE (15:03)
--- NOTE | 2023-05-20 15:32 | Hospitalist Consultation ---
Date of Consultation May 20, 2023 Assessment & Plan (1) BPH (benign prostatic hyperplasia): Patient status post TURP he 05/20/2023 after having hematuria with venous varicosities seen on cystoscopy Patient doing well postoperatively with bladder irrigation in place on primary service of urology (2) CAD (coronary artery disease): Patient history of CABG in the past cannot recall the exact year. Echo from 2021 shows normal ejection fraction patent foramen ovale moderate aortic regurgitation mild mitral regurgitation Cardiac medications preoperatively include atenolol, amlodipine, atorvastatin, losartan, Plavix. (3) History of ischemic stroke without residual deficits: Patient had episode of a stroke with word finding issues in October 2021 echocardiogram comments on patent foramen ovale. This time secondary risk prevention with atorvastatin and Plavix are continued (4) Diabetes mellitus: Patient's diabetes has been in poor control with last A1c being 10.8 typically only on metformin 1000 twice daily and Farxiga 5 mg 1 daily at home. However patient does live alone there is compliance issues and is not sure he always takes his medicines twice a day. Currently blood glucoses are in the 250 range employed insulin sliding scale consider sulfonylurea addition to his medications or an additional oral agent. Going to basal bolus insulin for home discharge likely may be challenging as this patient is not significantly attuned to his medical issues or medications Plan DVT prevention is SCDs at this point History of Present Illness Attending Physician: David Monk, II, DO History of Present Illness 72 M with history of CAD/CABG, CVA, DM and Valvular heart disease, who presents after TURP for medical management post operatively Pt is stable in the PACU, bladder irrigation is clear at present perioperative blood glucose is elevated to 250 range post op pain control is good Allergies Allergy/AdvReac Type Severity Reaction Status Date / Time Penicillins Allergy Unknown Unknown Verified 05/20/23 07:49 morphine AdvReac Mild GI upset Verified 05/20/23 07:49 Home Medications Medication Instructions Recorded Confirmed Type ibuprofen 200 mg tablet 200 mg PO QID PRN Pain 09/15/18 05/20/23 History blood sugar diagnostic (Verve MobileTouch #300 ea 11/05/21 05/13/23 Rx Verio test strips) lancets 33 gauge (OneTouch Delica #300 ea 11/05/21 05/13/23 Rx Lancets) clopidogrel 75 mg tablet 75 mg PO QAM 30 days #90 tabs 12/18/21 05/20/23 Rx metformin 1,000 mg tablet 1,000 mg PO BID 30 days #180 tabs 12/18/21 05/20/23 Rx pantoprazole 40 mg tablet,delayed 40 mg PO BID #180 tabs 10/05/22 05/20/23 Rx release gabapentin 100 mg capsule 300 mg (3 x 100 mg) PO HS #270 caps 10/12/22 05/20/23 Rx amlodipine 10 mg tablet 10 mg PO QAM 05/03/23 05/20/23 History atenolol 50 mg tablet 50 mg PO QAM 05/03/23 05/20/23 History atorvastatin 80 mg tablet 80 mg PO QAM 05/03/23 05/20/23 History dapagliflozin propanediol 5 mg 5 mg PO QAM 05/03/23 05/20/23 History tablet (Farxiga) losartan 50 mg tablet 50 mg PO QAM 05/03/23 05/20/23 History tamsulosin 0.4 mg capsule (Flomax) 0.8 mg PO QAM 05/03/23 05/20/23 History insulin glargine 100 unit/mL (3 10 unit (0.1 mL) subcut QPM #15 mL 05/13/23 05/20/23 Rx mL) subcutaneous pen (Lantus Solostar U-100 Insulin) pen needle, diabetic, safety 30 #100 ea 05/13/23 05/13/23 Rx gauge x 5/16" (Assure ID Pen Needle) sildenafil 100 mg tablet 100 mg PO DAILY PRN sexual 05/13/23 05/20/23 Rx activity #10 tabs Patient History Medical History COVID-19 PFO (patent foramen ovale) CAD (coronary artery disease) Diabetes mellitus, type 2 GERD (gastroesophageal reflux disease) Poor historian Depression with anxiety Stroke BPH (benign prostatic hyperplasia) Delayed gastric emptying Sleep apnea Surgical History History of cardiac cath History of Tyoin fundoplication History of open reduction and internal fixation (ORIF) procedure History of repair of hiatal hernia History of umbilical hernia repair History of colonoscopy History of esophagogastroduodenoscopy (EGD) History of tooth extraction History of tonsillectomy History of bilateral cataract extraction History of coronary artery bypass graft x 2 Family History Sister Breast cancer Other No family history of adverse response to anesthesia Denies family history of Ovarian cancer Prostate cancer Myocardial infarction Colorectal cancer Social History Smoking Status: Never smoker Second Hand Exposure: No; Do You Dip or Chew Tobacco: No; Hx Alcohol Use: Yes Alcohol type: beer Hx Substance Use: No Preferred Language: Serbian Communication Ability: Effective Visual Impairment: Limited Hearing Ability: Normal Drawer In Required: No Beliefs That Will Affect Care: None marital status: / Current Living Situation: Significant Other Current Living Situation Comment: Intermittently with significant other. current occupational status: retired How many Children do You have: 2 Feels Safe at Home: Yes Safety Concerns: Feels Safe At This Time Childhood Exposure to Second-Hand Smoke: Yes Diet: regular caffeine: Yes during the past year weight has: remained stable Dental Care, Regularly: Yes Physical Activity Frequency: Daily Seatbelt Use: always Sunscreen Use: No Assistive Devices: Glasses Physical Exam Physical Exam: Pt is awake and alert no focal complaints attempted med reconciliation, pt cannot recall meds cardiac is regular, melanie is heard lungs are clear abd is soft and non tender, no suprapubic tenderness neuro is non focal Results & Data Results & Data Vital Signs (Past 12 Hours) Vital Signs Temp Pulse Pulse Resp BP BP Pulse Ox 05/20/23 14:50 59 L 18 108/69 96 05/20/23 13:50 59 L 17 101/68 95 05/20/23 13:20 57 L 12 104/64 97 05/20/23 12:50 58 L 19 96/68 L 93 05/20/23 12:35 55 L 14 98/64 L 97 05/20/23 12:20 57 L 18 112/68 96 05/20/23 12:05 58 L 16 109/67 96 05/20/23 11:50 97.3 F L 60 17 108/72 92 05/20/23 11:40 58 L 17 115/71 95 05/20/23 11:30 61 18 118/79 95 05/20/23 11:20 60 19 118/83 99 05/20/23 11:10 61 15 124/76 100 05/20/23 11:00 97.2 F L 66 14 126/79 99 05/20/23 07:40 97.9 F 56 L 17 143/76 H 97 O2 Del Method O2 Flow Rate 05/20/23 14:50 Room Air 05/20/23 13:50 Room Air 05/20/23 13:20 Room Air 05/20/23 12:50 Room Air 05/20/23 12:35 Room Air 05/20/23 12:20 Room Air 05/20/23 12:05 Room Air 05/20/23 11:50 Room Air 05/20/23 11:40 Room Air 05/20/23 11:30 Room Air 05/20/23 11:20 Oxymask 4 05/20/23 11:10 Oxymask 6 05/20/23 11:00 Oxymask 6 05/20/23 07:40 Room Air Laboratory Results Reviewed CBC reviewed CBC Reviewed chemistry PG Care Time/CCT Total # of Minutes Spent Total Time Spent with Patient: Total time spent is greater than 50% in coordination of care (as documented) at patient's floor/unit and/or counseling patient: Coding Level of Care Code 30354 IN/OBS CONSULT LVL 3,45M Diagnoses BPH (benign prostatic hyperplasia) N40.0 CAD (coronary artery disease) I25.10 History of ischemic stroke without residual deficits Z86.73 Type 2 diabetes mellitus without complication, without long-term current use of insulin E11.9 Diabetes mellitus type: type 2 Diabetes mellitus intermediate frame tender insulin use: without intermediate frame tender use Diabetes mellitus complication status: without complication (4) Diabetes mellitus Diabetes mellitus type: type 2 Diabetes mellitus intermediate frame tender insulin use: without retirement use Diabetes mellitus complication status: without complication Qualified Code(s): E11.9 - Type 2 diabetes mellitus without complications
--- NOTE | 2023-05-20 15:59 | Anesthesiology Progress Note ---
Date of Service May 20, 2023 Anesthesia Post Procedure Vital Signs Vital Signs: Temp Pulse Pulse Resp BP BP Pulse Ox 05/20/23 15:50 36.4 C L 60 14 101/66 98 05/20/23 14:50 59 L 18 108/69 96 05/20/23 13:50 59 L 17 101/68 95 05/20/23 13:20 57 L 12 104/64 97 05/20/23 12:50 58 L 19 96/68 L 93 05/20/23 12:35 55 L 14 98/64 L 97 05/20/23 12:20 57 L 18 112/68 96 05/20/23 12:05 58 L 16 109/67 96 05/20/23 11:50 36.3 C L 60 17 108/72 92 05/20/23 11:40 58 L 17 115/71 95 05/20/23 11:30 61 18 118/79 95 05/20/23 11:20 60 19 118/83 99 05/20/23 11:10 61 15 124/76 100 05/20/23 11:00 36.2 C L 66 14 126/79 99 05/20/23 07:40 36.6 C 56 L 17 143/76 H 97 O2 Del Method O2 Flow Rate 05/20/23 15:50 Room Air 05/20/23 14:50 Room Air 05/20/23 13:50 Room Air 05/20/23 13:20 Room Air 05/20/23 12:50 Room Air 05/20/23 12:35 Room Air 05/20/23 12:20 Room Air 05/20/23 12:05 Room Air 05/20/23 11:50 Room Air 05/20/23 11:40 Room Air 05/20/23 11:30 Room Air 05/20/23 11:20 Oxymask 4 05/20/23 11:10 Oxymask 6 05/20/23 11:00 Oxymask 6 05/20/23 07:40 Room Air Pain Intensity Penis: Pain Intensity: 2 Transfer of Care Handoff Completed per policy Notes Mental Status: alert / awake / arousable Patient Amnestic to Procedure: Yes Nausea / Vomiting: adequately controlled Pain: adequately controlled Airway Patency, RR, SpO2: stable & adequate BP & HR: stable & adequate Hydration State: stable & adequate Anesthetic Complications: no major complications apparent and Pt Satisfied with anesthetic care
[2023-05-20] MEDS ORDERED: NovoLIN-N (NPH) PER UNIT CHARGE SQ ONE (17:00)
[2023-05-20] MEDS ORDERED: HYDROmorphone INJ 0.5 MG/0.5 ML SYR IV PRN (17:41)
[2023-05-20] MEDS ORDERED: HYDROmorphone INJ 1 MG/ML SYRINGE IV PRN (17:41)
[2023-05-20] MEDS: ceFAZolin 2000MG 2,000 MG/15 ML SYR IV SCH (17:48)
[2023-05-20] MEDS: SODIUM CHLORIDE 0.9% 1,000 ML IV SCH (17:48)
[2023-05-20] MEDS: DOCUSATE SODIUM 100 MG CAP PO SCH ×2 (17:48→21:41)
[2023-05-20] MEDS: INSULIN ASPART PER UNIT CHARGE SC SCH ×2 (18:13→21:40)
[2023-05-20] MEDS ORDERED: GABAPENTIN 300 MG CAP PO SCH (21:00)
[2023-05-20] MEDS ORDERED: LANTUS PER UNIT CHARGE SQ SCH ×2 (21:00)
[2023-05-20] MEDS: PANTOprazole 40 MG TAB PO SCH (21:41)
[2023-05-21] MEDS: ceFAZolin 2000MG 2,000 MG/15 ML SYR IV SCH ×2 (01:24→08:30)
[2023-05-21] MEDS ORDERED: MELATONIN 3 MG TAB PO PRN (01:37)
[2023-05-21] MEDS: SODIUM CHLORIDE 0.9% 1,000 ML IV SCH (05:14)
[2023-05-21] MEDS ORDERED: Nursing to Pharmacy Communication SCH (05:30)
[2023-05-21 07:42] LABS: Estimated Average Glucose 252 mg/dl; Hemoglobin A1C 10.4 % (4.5-5.6)
--- NOTE | 2023-05-21 07:46 | Hospitalist Progress Note ---
Date of Service May 21, 2023 Assessment & Plan (1) BPH (benign prostatic hyperplasia): Plan: Patient status post TURP he 05/20/2023 after having hematuria with venous varicosities seen on cystoscopy Patient doing well postoperatively urology is discontinued irrigation we will transition the patient to home (2) CAD (coronary artery disease): Plan: Patient history of CABG in the past cannot recall the exact year. Echo from 2021 shows normal ejection fraction patent foramen ovale moderate aortic regurgitation mild mitral regurgitation Cardiac medications preoperatively include atenolol, amlodipine, atorvastatin, losartan, Plavix. Will resume Plavix losartan at a later date as instructed on discharge (3) History of ischemic stroke without residual deficits: Plan: Patient had episode of a stroke with word finding issues in October 2021 echocardiogram comments on patent foramen ovale. This time secondary risk prevention with atorvastatin and Plavix, plavix on hold until hematuria is lessened (4) Diabetes mellitus: Plan: Patient's diabetes has been in poor control with last A1c being 10.8 typically only on metformin 1000 twice daily and Farxiga 5 mg 1 daily at home. Plus Lantus 10 mg once a day However patient does live alone there is compliance issues and is not sure he always takes his medicines twice a day. Patient given education about needing to follow-up with primary care for increased diabetic education new glucometer and will increase his Lantus to 15 units twice daily given the extremely high glucoses has been running in the hospital and also the elevation of his A1c at home. Admission and Anticipated Discharge Date Admission Date: May 20, 2023 Subjective Patient was seen and was doing well North catheter is draining easily. We discussed the possibility increasing diabetic control and the need to be to get a glucose monitor. His primary care will need to refer him the clinical unit educator as 1 is not available today to provide education or glucometer. Patient states his glucometer is too complicated for him to understand. Physical Exam Physical Exam: Awake alert appropriate Cardiac exam is regular with slight systolic murmur Lungs are clear without wheezes or crackles Results & Data Results & Data Vital Signs (Past 12 Hours) Vital Signs Temp Pulse Pulse Resp BP Pulse Ox O2 Del Method 05/21/23 07:15 66 05/21/23 00:00 97.3 F L 64 18 96/63 L 93 Room Air 05/20/23 21:46 64 12/28/23 20:43 97.5 F L 64 18 100/65 94 Room Air Laboratory Results Reviewed CBC reviewed chemistry PG Care Time/CCT Total # of Minutes Spent Total Time Spent with Patient: Total time spent is greater than 50% in coordination of care (as documented) at patient's floor/unit and/or counseling patient: Coding Level of Care Code 85284 SUB INP/OBS CARE 3/50MIN Diagnoses BPH (benign prostatic hyperplasia) N40.0 CAD (coronary artery disease) I25.10 History of ischemic stroke without residual deficits Z86.73 Type 2 diabetes mellitus without complication, without long-term current use of insulin E11.9 Diabetes mellitus complication status: without complication Diabetes mellitus long-term insulin use: without long-term use Diabetes mellitus type: type 2 (4) Diabetes mellitus Diabetes mellitus complication status: without complication Diabetes mellitus terminal gauger insulin use: without terminal gauger use Diabetes mellitus type: type 2 Qualified Code(s): E11.9 - Type 2 diabetes mellitus without complications
[2023-05-21] MEDS: DOCUSATE SODIUM 100 MG CAP PO SCH (08:30)
[2023-05-21] MEDS: PANTOprazole 40 MG TAB PO SCH (08:30)
[2023-05-21 08:41] LABS: Basophils # (auto) 0.07 K/uL (0.00-0.20); Basophils % (auto) 0.8 %; Eosinophils # (auto) 0.26 K/uL (0.00-0.50); Hematocrit (blood only) 28.3 % (42.0-52.0); Hemoglobin 9.4 g/dl (14.0-18.0); Immature Granulocytes # (auto) 0.05 K/uL (0.01-0.20); Immature Granulocytes % (auto) 0.6 %; Lymphocytes # (auto) 0.82 K/uL (1.20-3.40); Lymphocytes % (auto) 9.4 %; Mean Corpuscular Hemoglobin 31.2 pg (25.0-34.0); Mean Corpuscular Hgb Conc 33.2 g/dL (32.0-36.0); Mean Platelet Volume 12.6 fL (9.4-12.4); Neutrophils # (auto) 6.86 K/uL (1.40-6.50); Neutrophils % (auto) 78.2 %; Nucleated RBC # (auto) 0.02 K/uL (0.00-0.12); Nucleated RBC % (auto) 0.2 %; Platelet Count 151 K/uL (130-400); RDW Coefficient of Variation 13.5 % (11.5-14.5); Red Blood Count 3.01 M/uL (4.70-6.10); White Blood Count 8.76 K/ul (4.8-10.8)
[2023-05-21 08:45] LABS: BUN Creatinine Ratio 30.8 (10-20); Calcium 7.9 mg/dl (8.6-10.3); Creatinine Clr Calc Pharmacy 81.7 ml/min; Est GFR (African American) 96.6 ml/min; Est GFR (Non-African American) 83.3 ml/min; Potassium 3.9 mmol/L (3.5-5.1)
[2023-05-21] MEDS ORDERED: ATENOLOL 50 MG TABLET PO SCH (09:00)
[2023-05-21] MEDS: INSULIN ASPART PER UNIT CHARGE SC SCH ×2 (09:19→13:36)
[2023-05-21] MEDS ORDERED: ONDANSETRON INJ 2 MG/ML 2 ML VIAL IV PRN (09:33)
--- NOTE | 2023-05-21 12:14 | Urology Progress Note ---
Date of Service May 21, 2023 Assessment & Plan (1) BPH (benign prostatic hyperplasia): (2) Urinary frequency: Plan 72yo/M admitted to urology service s/p transurethral resection of the prostate on 05/20/[address] Monk. - Pt POD#1 s/p TURP - Doing well, progressing as expected - Hospital medicine consulted postoperatively for medical management due to comorbidities, appreciate assistance - Afebrile, hemodynamically stable - Labs reviewed-WBC 8.76, hemoglobin 9.4, creatinine 0.91 - Tolerating PO diet - 3 way North catheter intact, patent and draining pink tinged urine with CBI on slow - CBI clamped @1000, nursing aware - will reassess later today - Maintain North catheter - Encourage OOB/ambulation - Continue supportive care - Will reassess this afternoon, possible discharge home with North catheter later today or tomorrow pending patient progression and medicine team recommendations - Pt reassessed this afternoon - Urine remains pink tinged off CBI - Overall feeling well - Remains afebrile and hemodynamically stable - Tolerating diet - Ambulating without issue - Discussed with hospital team, okay for discharge from their perspective. - Patient stable for discharge home today with North catheter. - Will arrange appropriate postoperative follow-up. - Discharge instructions reviewed, all questions were answered. Admission and Anticipated Discharge Date Admission Date: May 20, 2023 Subjective Patient examined at bedside this AM. Awake, resting in bed on arrival. No acute distress. North catheter intact, draining pink-tinged urine with CBI on slow. Denies fevers or chills. Reports some nausea, no vomiting. Denies dizziness or lightheadedness. Tolerating diet. Review of Systems Constitutional: as per Subjective / HPI Gastrointestinal: as per Subjective / HPI Genitourinary: + as per Subjective / HPI Physical Exam Constitutional: no acute distress Respiratory: no respiratory distress and no labored breathing Neurologic: awake Psychiatric: A+Ox3, euthymic affect Genitourinary: North catheter intact, draining pink-tinged urine with CBI on slow Results & Data Vital Signs (Past 12 Hours) Vital Signs Temp Pulse Pulse Resp BP Pulse Ox Pulse Ox 05/21/23 11:00 36.3 C L 66 18 101/64 94 05/21/23 08:44 93 05/21/23 07:54 36.5 C 67 18 100/62 93 05/21/23 07:15 66 O2 Del Method O2 Del Method 05/21/23 11:00 Room Air 05/21/23 08:44 Room Air 05/21/23 07:54 Room Air 05/21/23 07:15 PG Care Time/CCT Total # of Minutes Spent Total Time Spent with Patient: Total time spent is greater than 50% in coordination of care (as documented) at patient's floor/unit and/or counseling patient: Coding Level of Care Code None Diagnoses BPH (benign prostatic hyperplasia) N40.0 Urinary frequency R35.0
--- NOTE | 2023-05-21 16:21 | Discharge Summary ---
Date of Service May 21, 2023 Admission HPI Per Admitting Provider 72-year-old male with a history of BPH admitted for transurethral resection of the prostate with Dr. Monk Admission Exam Per Admitting Provider General: Alert in no acute distress. HEENT: Normocephalic Atraumatic. Inspection normal. Psychologic: Normal affect. Respiratory: Nonlabored. Cardiovascular: No tachycardia Skin: [place] and Dry. Principal Diagnosis Urinary frequency, BPH Discharge Exam Constitutional no acute distress Respiratory no respiratory distress and no labored breathing Neurologic awake Psychiatric A+Ox3, euthymic affect Genitourinary North catheter intact, draining pink-tinged urine Discharge Data Allergies Allergy/AdvReac Type Severity Reaction Status Date / Time Penicillins Allergy Unknown Unknown Verified 05/20/23 07:49 morphine AdvReac Mild GI upset Verified 05/20/23 07:49 Consultations 05/20/23 08:44 Consult Hospitalist Routine Procedures Performed Operation Date: 05/20/23 09:20 Actual Procedures p Transurethral Resection of the Prostate(Not Applicable) - David Monk, DO Hospital Course (1) BPH (benign prostatic hyperplasia): (2) Urinary frequency: Plan 72yo/M admitted to urology service s/p transurethral resection of the prostate on 05/20/[address] Monk. - Pt POD#1 s/p TURP - Doing well, progressing as expected - Hospital medicine consulted postoperatively for medical management due to comorbidities, appreciate assistance - Afebrile, hemodynamically stable - Labs reviewed-WBC 8.76, hemoglobin 9.4, creatinine 0.91 - Tolerating PO diet - 3 way North catheter intact, patent and draining pink tinged urine with CBI on slow - CBI clamped @1000, nursing aware - will reassess later today - Maintain North catheter - Encourage OOB/ambulation - Continue supportive care - Will reassess this afternoon, possible discharge home with North catheter later today or tomorrow pending patient progression and medicine team recommendations - Pt reassessed this afternoon - Urine remains pink tinged off CBI - Overall feeling well - Remains afebrile and hemodynamically stable - Tolerating diet - Ambulating without issue - Discussed with hospital team, okay for discharge from their perspective. - Patient stable for discharge home today with North catheter. - Will arrange appropriate postoperative follow-up. - Discharge instructions reviewed, all questions were answered. Total Time Total Time Spent Total Time Spent (In Minutes): 15 Discharge Plan Discharge Items Patient Disposition: Home - Self-Care Reason For Visit: Urinary Frequency, BPH (Benign Prostatic Hyperplas Discharge Diagnosis: BPH, Urinary Frequency Activity: Per Instructions section Lifting: No more than 25 pounds Bathing Comment: OK to shower. No tub baths or soaks. Sexual Activity: Wait until after follow-up appointment Exercise/Sports: Wait until after follow-up appointment Non-emergency contact: Surgeon and Urologist Call non-emergency contact if: you have any medication questions, your symptoms worsen, your pain is not controlled, your pain is worsening and you have a fever Follow-up/Referrals: Lori Ponce CRNP [Primary Care Provider] - David Monk DO [Physician] - Diet: Carb Consistent or DM2 Addtl Attending Provider Instructions: Please take all medications as prescribed and keep all follow-ups as scheduled. Please call the urology office at [phone] with any questions, concerns or need to reschedule appointments for any reason. We are happy to assist you. Tips for your recovery at home: Dont be alarmed by brownish or reddish blood or clots in your urine. This is a result of the procedure. This may occur off and on for weeks to months after the procedure but should continue to improve. Drink plenty of fluids during the day (enough to keep your urine very light colored). This will help keep a healthy flow of urine. Do not lift >25 lbs until your followup Avoid constipation. Please use a stool softener (Colace) for the first two weeks after your procedure Be sure to finish the antibiotics as prescribed. If you go home with a catheter, please wash tubing where it enters your body twice daily with mild soap (Dove or Dial). Once your catheter is removed, expect some blood in your urine and some burning when you urinate. You should have an appointment to have this removed, if you do not please call our office to arrange. When to call [facility] at [phone]: Your urine contains heavy blood clots or your catheter stops draining You are constantly leaking urine Fever of 101F or higher, chills, nausea, or vomiting Your pain is not relieved with medication Addtl [employer] Provider Instructions: Mr. Bentley I did forget that you are already on injectable insulin. Subsequently our best choice at this time would be to increase the injectable insulin to 15 units twice a day. If you are not on injectable insulin anymore you should notify your family doctor as we need to do something different to try to help your glucose. 1 big part of glucose control is eating a healthy diet avoiding foods that are high in simple sugars certainly more natural foods are part of this Be sure to continue to take your Farxiga and your metformin twice a day. Pending Studies at Discharge: Yes (pathology) Stand-Alone Forms: My [facility] [employer], Smoking Cessation Medications and DC Order Prescriptions: Continued (DME) OneTouch Verio test strips Strip See Rx Instructions .Route Qty: 300 3RF Rx Instructions: test 3 times daily (DME) lancets [OneTouch Delica Lancets] 33 gauge misc See Rx Instructions .Route Qty: 300 3RF Rx Instructions: use to test 3 times daily pantoprazole 40 mg tablet,delayed release (DR/EC) 40 mg PO BID Qty: 180 3RF metformin 1,000 mg tablet 1,000 mg PO BID 30 Days Qty: 180 3RF gabapentin 100 mg capsule 300 mg PO HS Qty: 270 3RF Rx Instructions: 100 mg PO take 3 at bedtime; pt aware dose change (DME) Assure ID Pen Needle 30 gauge x 5/16" needle See Rx Instructions .Route Qty: 100 3RF Rx Instructions: daily with insulin sildenafil 100 mg tablet 100 mg PO DAILY PRN (Reason: sexual activity) Qty: 10 3RF Rx Instructions: 1/2 tab daily as needed,administer 30 minutes to 4 hours before activity ibuprofen 200 mg Tablet 200 mg PO QID PRN (Reason: Pain) atorvastatin 80 mg tablet 80 mg PO QAM tamsulosin [Flomax] 0.4 mg capsule 0.8 mg PO QAM amlodipine 10 mg tablet 10 mg PO QAM atenolol 50 mg tablet 50 mg PO QAM Rx Instructions: Patient aware of the increased dose. Farxiga 5 mg tablet 5 mg PO QAM Changed insulin glargine [Lantus Solostar U-100 Insulin] 100 unit/mL (3 mL) insulin pen 15 unit subcut BID Qty: 30 4RF Held clopidogrel 75 mg tablet 75 mg PO QAM 30 Days Qty: 90 3RF Hold Instructions: Resume on 01/03/24. losartan 50 mg tablet 50 mg PO QAM Hold Instructions: Resume on 05/25/23. Discharge Orders: Discharge Order (Routine); Ordered 05/21/23 Ordered By: Rachel Martinez/Other Patient Handouts: Using a Blood Sugar Log, TURP Home Recovery, Diabetes: Meal Planning Admission Data Admit Date/Time: 05/20/23 08:44 Attending Provider: David Monk Admit Provider: David Monk Primary Care Provider: Lori Ponce Other Providers: Brennan Elena; Trent Alonso Other Interventions: Discharge Summary Assessment (RN) Last Done: 05/21/23 14:55 Coding Level of Care Code 98770 IN/OBS DISCH 30 MIN/LESS Diagnoses BPH (benign prostatic hyperplasia) N40.0 Urinary frequency R35.0
== END 2023-05-21 16:08 | disposition home or self-care (01) ==
LOC: PACUINP 07:26 → ASU 07:26 → 2N 16:07
DX: E11.9 Type 2 diabetes mellitus without complications; Z88.5 Allergy status to narcotic agent; Z86.16 Personal history of COVID-19; Z79.899 Other long term (current) drug therapy; Z79.84 Long term (current) use of oral hypoglycemic drugs; N40.1 Benign prostatic hyperplasia with lower urinary tract symptoms; Z95.1 Presence of aortocoronary bypass graft; Z79.4 Long term (current) use of insulin; R35.0 Frequency of micturition; I25.10 Atherosclerotic heart disease of native coronary artery without angina pectoris; Z88.0 Allergy status to penicillin; Z86.73 Personal history of transient ischemic attack (TIA), and cerebral infarction without residual deficits; G47.33 Obstructive sleep apnea (adult) (pediatric)